=== PATIENT | female | born 1945 | race Caucasian/White ===

== ENCOUNTER 2016-11-01 13:10 | Emergency (ER) | payer MEDICARE, OTHER ==
[2016-11-01 13:55] VITALS: BP 137/73
--- NOTE | 2016-11-01 14:59 | UC ---
Skin Complaint HPI - HPI Summary HPI Summary: pt reports pruritic rash on upper chest and extremities that began 2-3 days ago. Pt has been currently treated for cellulitis and abscess on left anterior knee. Recently has taken keflex, bactrim and just completed doxycycline for 10 days on 10/26/16 Rash began on 10/26/16. Pt has taken 50 mg of benadryl with little to no improvement. over the last 24 hours. - History of Current Complaint Chief Complaint: UC Time Seen by Provider: 11/01/16 13:56 Stated Complaint: RASH Hx Obtained From: Patient ?: No Onset/Duration: Sudden Onset, Lasting Days, Still Present Skin Exposure Onset/Duration: Days Ago Timing: Constant Onset Severity: Mild Current Severity: Moderate Pain Intensity: 0 Pain Scale Used: 0-10 Numeric Location: Discrete - upper anterior chest and upper extremities Character: Pruritus, Redness Aggravating: Nothing Alleviating: Nothing Associated Signs & Symptoms: Positive: Rash Related History: Other: - antibiotic use - Allergy/Home Medications Allergies/Adverse Reactions: Allergies Allergy/AdvReac Type Severity Reaction Status Date / Time Fluconazole [From Diflucan] Allergy Unknown Verified 11/01/16 13:46 Reaction Details Review of Systems Constitutional: Negative Skin: Rash Eyes: Negative ENT: Negative Respiratory: Negative Cardiovascular: Negative Gastrointestinal: Negative Genitourinary: Negative Motor: Negative Neurovascular: Negative Musculoskeletal: Myalgia Neurological: Negative Psychological: Negative All Other Systems Reviewed And Are Negative: Yes PMH/Surg Hx/FS Hx/Imm Hx Previously Healthy: Yes - has hx psoriasis Endocrine History Of: Reports: Thyroid Disease - HYPOTHYROID, Hypothyroidism Cardiovascular History Of: Reports: Hypertension Cancer History Of: Denies: Breast Cancer - Surgical History Surgical History: Yes Surgery Procedure, Year, and Place: TUBAL LIGATION, TONSILLECTOMY - Family History Known Family History: Positive: Cardiac Disease, Hypertension Family History: NON CONTRIBUTORY - Social History Lives: With Family Alcohol Use: Occasionally Alcohol Amount: 1 GLASS WINE/DAY Substance Use Type: None Smoking Status (MU): Former Smoker - Immunization History Most Recent Influenza Vaccination: fall 2015 Physical Exam Triage Information Reviewed: Yes Appearance: Well-Appearing Vital Signs: Initial Vital Signs Temp 97.8 F 11/01/16 13:50 Pulse 73 11/01/16 13:50 Resp 16 11/01/16 13:50 BP 137/73 11/01/16 13:50 Pulse Ox 97 11/01/16 13:50 Vital Signs Reviewed: Yes Neck exam: Normal Respiratory Exam: Normal Cardiovascular Exam: Other Cardiovascular: Positive: Murmur:Sys:Grade _?_/ Musculoskeletal Exam: Normal Neurological Exam: Normal Psychological Exam: Normal Skin Exam: Other - 1 cm wide circular, erythematous, blanchable dry skin scattered on upper anterior chest and extremities Course/Dx - Differential Diagnoses - Skin Complaint Differential Diagnoses: Allergic Reaction, Scabies, Grovse-Anastacio Syndrome - Diagnoses Provider Diagnoses: adverse drug reaction Discharge - Discharge Plan Condition: Stable Disposition: HOME Prescriptions: Loratadine [Alavert] 10 mg PO DAILY #10 tab Patient Education Materials: Adverse Drug Reaction (ED) Referrals: Ney Luna MD [Primary Care Provider] -
== END 2016-11-01 14:22 | disposition home or self-care (01) ==
LOC: UCEAST 13:10
DX: L27.0 Generalized skin eruption due to drugs and medicaments taken internally (principal); T50.905A Adverse effect of unspecified drugs, medicaments and biological substances, initial encounter; Y92.9 Unspecified place or not applicable; Z88.1 Allergy status to other antibiotic agents; Z87.891 Personal history of nicotine dependence
CPT/HCPCS: 99212; G0463

== ENCOUNTER 2018-02-04 14:42 | Emergency (ER) | payer MEDICARE ==
[2018-02-04] MEDS ORDERED: Aspirin 81 mg CHEW TAB* 81 MG TAB.CHEW PO ONE (17:28)
[2018-02-04 17:57] LABS: ABS Basophils 0 10^3/ul (0-0.2); ABS Eosinophils 0.1 10^3/ul (0-0.6); ABS Lymphocytes 1.3 10^3/ul (1.0-4.8); ABS Monocytes 0.4 10^3/ul (0-0.8); ABS Neutrophils 3.4 10^3/ul (1.5-7.7); ABS Nucleated RBC 0 10^3/ul; Eosinophil % 1.3 % (0-6); Hematocrit 35 % (35-47); Hemoglobin 11.5 g/dl (12.0-16.0); Lymphocyte % 25.4 % (25-47); Mean Corpuscular HGB Conc 33 g/dl (31-36); Mean Corpuscular Hemoglobin 28 pg (27-31); Mean Corpuscular Volume 87 fL (80-97); Mean Platelet Volume 8.5 um3 (7.4-10.4); Nucleated Red Blood Cells % 0; Platelet Count 235 10^3/ul (150-450); Red Blood Count 4.08 10^6/ul (4.0-5.4); Red Cell Distribution Width 15 % (10.5-15); White Blood Count 5.2 10^3/ul (3.5-10.8)
[2018-02-04 18:02] LABS: INR 0.96 (0.77-1.02)
--- NOTE | 2018-02-04 18:09 | ED ---
HPI Chest Pain - HPI Summary HPI Summary: Patient here with abrupt onset of bilateral neck and upper chest pain radiating into her head at 4 AM yesterday morning that lasted until about 14:00 in the afternoon. She denies associated symptoms of fever, chills, sweats, nausea, arm pain, shortness of breath, vomiting, nausea. She said she rested most of the day however decided to try some ibuprofen around noon and this did alleviate her symptoms. She has hypertension and high cholesterol for which she takes medication. She also denies sleep apnea but reports her daughter told her she snores. No history of [place] or clotting disorders. No recent trauma or injury to the area. She does have a h/o GERD - takes daily PPI - reports this does not feel like GERD - no ab pain, no change in foods, stress, etc. Had an episode pf pain like this in the past and PCP told her it was anxiety - she denies having a bad dream or sleeping in an odd position so doesn't know why this pain would wake her from sleep? Feels fine now but came in to get checked out. Has had a stress test in the past - "okay". No previous ECG or cardiac testing on file here. - History of Current Complaint Hx Obtained From: Patient Pain Intensity: 0 <Jyoti Benson - Last Filed: 02/04/18 18:15> <Aaron Godinez - Last Filed: 02/04/18 21:50> - History of Current Complaint Chief Complaint: EDThroatPain Time Seen by Provider: 02/04/18 16:11 - Allergy/Home Medications Allergies/Adverse Reactions: Allergies Allergy/AdvReac Type Severity Reaction Status Date / Time fluconazole [From Diflucan] Allergy Leg Cramps Verified 02/04/18 14:52 Home Medications: Home Medications Acyclovir* [Zovirax 400 MG TAB*] 400 mg PO BID 02/04/18 [History Confirmed 02/04] Adalimumab [Humira] 20 mg SC .EVERY TWO WEEKS 02/04/18 [History Confirmed ] Calcipotriene 1 applic TOPICAL BID PRN 02/04/18 [History Confirmed 02/04/18] FLUoxetine CAP* [PROzac CAP*] 40 mg PO DAILY 02/04/18 [History Confirmed ] Gabapentin CAP(*) [Neurontin 300 CAP(*)] 300 mg PO TID 02/04/18 [History Confirmed 02/04/18] Hydrochlorothiazide TAB* [Hydrodiuril TAB*] 25 mg PO DAILY 02/04/18 [History Confirmed 02/04/18] Leflunomide 20 mg PO DAILY 02/04/18 [History Confirmed 02/04/18] Levothyroxine TAB* [Synthroid TAB*] 175 mcg PO DAILY 02/04/18 [History Confirmed 02/04/18] Losartan TAB* [Cozaar TAB*] 50 mg PO DAILY 02/04/18 [History Confirmed 02/04/18] Nystatin CREAM* 1 applic TOPICAL BID PRN 02/04/18 [History Confirmed 02/04/18] Pantoprazole TAB (NF) [Protonix TAB (NF)] 40 mg PO DAILY 02/04/18 [History Confirmed 02/04/18] Piroxicam CAP* [Feldene CAP*] 20 mg PO DAILY WITH MEAL 02/04/18 [History Confirmed 02/04/18] Pravastatin (NF) [Pravachol (NF)] 80 mg PO DAILY 02/04/18 [History Confirmed ] PMH/Surg Hx/FS Hx/Imm Hx Previously Healthy: Yes Endocrine/Hematology History: Reports: Hx Thyroid Disease - HYPOTHYROID Cardiovascular History: Reports: Hx Hypercholesterolemia, Hx Hypertension, Other Cardiovascular Problems/Disorders - murmur; no known carotid stenosis Denies: Hx Aneurysm, Hx Angina, Hx Myocardial Infarction, Hx Rheumatic Fever Respiratory History: Denies: Hx Asthma, Hx Chronic Obstructive Pulmonary Disease (COPD), Hx Pulmonary Embolism, Hx Sleep Apnea - no dx'd but admits to snoring GI History: Reports: Hx Gastroesophageal Reflux Disease Denies: Hx Cirrhosis, Hx Crohn's Disease, Hx Diverticulosis, Hx Gall Bladder Disease, Hx Gastrointestinal Bleed, Hx Hiatal Hernia, Hx Irritable Bowel, Hx Obstructive Bowel, Hx Ulcer Musculoskeletal History: Reports: Hx Rheumatoid Arthritis Denies: Hx Osteoporosis Neurological History: Denies: Hx CVA, Hx Migraine - Cancer History Hx Chemotherapy: No Hx Radiation Therapy: No - Surgical History Surgery Procedure, Year, and Place: TUBAL LIGATION, TONSILLECTOMY Infectious Disease History: Yes Infectious Disease History: Reports: 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 Denies: Traveled Outside the [place] in Last 30 Days - Family History Known Family History: Positive: Cardiac Disease, Hypertension - Social History Alcohol Use: Occasionally Alcohol Amount: 1 GLASS WINE/DAY Hx Substance Use: No Substance Use Type: Reports: None Hx Tobacco Use: Yes - not currently Smoking Status (MU): Former Smoker <Jyoti Benson - Last Filed: 02/04/18 18:15> Physical Exam Triage Information Reviewed: Yes Vital Signs On Initial Exam: Initial Vitals Temp Pulse Resp BP Pulse Ox 96.9 F 82 18 123/61 94 02/04/18 14:46 02/04/18 14:46 02/04/18 14:46 02/04/18 14:46 02/04/18 14:46 Vital Signs Reviewed: Yes Appearance: Positive: Well-Appearing, No Pain Distress, Obese Skin: Positive: Warm, Skin Color Reflects Adequate Perfusion, Dry Head/Face: Positive: Normal Head/Face Inspection Eyes: Positive: Normal, EOMI, Conjunctiva Clear ENT: Positive: Normal ENT inspection, Hearing grossly normal, Pharynx normal, TMs normal, Uvula midline. Negative: Nasal drainage, Tonsillar swelling, Tonsillar exudate, Trismus, Muffled voice, Sinus tenderness Neck: Positive: Supple, Nontender, No Lymphadenopathy - no gross thyromegaly or palpable nodules Respiratory/Lung Sounds: Positive: Clear to Auscultation, Breath Sounds Present. Negative: Rales, Rhonchi, Subcutaneous Emphysema, Stridor, Tracheal Deviation, Wheezes, Unable to speak in full sentences, Fatigue Cardiovascular: Positive: RRR, Pulses are Symmetrical in both Upper and Lower Extremities, Murmur, Other - no carotid bruit appreciated upon auscultation, S1 , S2. Negative: Leg Edema Left, Leg Edema Right Abdomen Description: Positive: Nontender, No Organomegaly, Soft Bowel Sounds: Positive: Present Musculoskeletal: Positive: Normal, Strength/ROM Intact. Negative: Pain @ - areas of pain yesterday are NTTP today Neurological: Positive: Normal, Sensory/Motor Intact, Alert, Oriented to Person Place, Time, CN Intact II-III Psychiatric: Positive: Normal <Marcelino,Jyoit - Last Filed: 02/04/18 18:15> Vital Signs On Initial Exam: Initial Vitals Temp Pulse Resp BP Pulse Ox 96.9 F 82 18 123/61 94 02/04/18 14:46 02/04/18 14:46 02/04/18 14:46 02/04/18 14:46 02/04/18 14:46 <Aaron Godinez - Last Filed: 02/04/18 21:50> Diagnostics - Vital Signs Vital Signs Temp Pulse Resp BP Pulse Ox 02/04/18 14:46 96.9 F 82 18 123/61 94 - Laboratory Lab Results: Lab Results 02/04/18 02/04/18 Range/Units 15:49 17:37 WBC 5.2 (3.5-10.8) 10^3/ul RBC 4.08 (4.0-5.4) 10^6/ul Hgb 11.5 L (12.0-16.0) g/dl Hct 35 (35-47) % MCV 87 (80-97) fL MCH 28 (27-31) pg MCHC 33 (31-36) g/dl RDW 15 (10.5-15) % Plt Count 235 (150-450) 10^3/ul MPV 8.5 (7.4-10.4) um3 Neut % (Auto) 65.1 (38-83) % Lymph % (Auto) 25.4 (25-47) % [place] % (Auto) 8.0 H (0-7) % Eos % (Auto) 1.3 (0-6) % Baso % (Auto) 0.2 (0-2) % Absolute Neuts (auto) 3.4 (1.5-7.7) 10^3/ul Absolute Lymphs (auto) 1.3 (1.0-4.8) 10^3/ul Absolute Monos (auto) 0.4 (0-0.8) 10^3/ul Absolute Eos (auto) 0.1 (0-0.6) 10^3/ul Absolute Basos (auto) 0 (0-0.2) 10^3/ul Absolute Nucleated RBC 0 10^3/ul Nucleated RBC % 0 Group A Strep Rapid Negative (Negative) Result Diagrams: 02/04/18 17:37 02/04/18 17:37 Lab Statement: Any lab studies that have been ordered have been reviewed, and results considered in the medical decision making process. <Jyoti Benson - Last Filed: 02/04/18 18:15> - Vital Signs Vital Signs Temp Pulse Resp BP Pulse Ox 02/04/18 14:46 96.9 F 82 18 123/61 94 - Laboratory Lab Results: Lab Results 02/04/18 02/04/18 02/04/18 Range/Units 15:49 17:37 17:37 WBC 5.2 (3.5-10.8) 10^3/ul RBC 4.08 (4.0-5.4) 10^6/ul Hgb 11.5 L (12.0-16.0) g/dl Hct 35 (35-47) % MCV 87 (80-97) fL MCH 28 (27-31) pg MCHC 33 (31-36) g/dl RDW 15 (10.5-15) % Plt Count 235 (150-450) 10^3/ul MPV 8.5 (7.4-10.4) um3 Neut % (Auto) 65.1 (38-83) % Lymph % (Auto) 25.4 (25-47) % [place] % (Auto) 8.0 H (0-7) % Eos % (Auto) 1.3 (0-6) % Baso % (Auto) 0.2 (0-2) % Absolute Neuts (auto) 3.4 (1.5-7.7) 10^3/ul Absolute Lymphs (auto) 1.3 (1.0-4.8) 10^3/ul Absolute Monos (auto) 0.4 (0-0.8) 10^3/ul Absolute Eos (auto) 0.1 (0-0.6) 10^3/ul Absolute Basos (auto) 0 (0-0.2) 10^3/ul Absolute Nucleated RBC 0 10^3/ul Nucleated RBC % 0 INR (Anticoag Therapy) 0.96 (0.77-1.02) APTT 31.4 (26.0-36.3) seconds D-Dimer, Quantitative > 1050 H (Less Than 230) ng/mL Sodium (139-145) mmol/L Potassium (3.5-5.0) mmol/L Chloride (101-111) mmol/L Carbon Dioxide (22-32) mmol/L Anion Gap (2-11) mmol/L BUN (6-24) mg/dL Creatinine (0.51-0.95) mg/dL Est GFR ( Amer) (>60) Est GFR (Non-Af Amer) (>60) BUN/Creatinine Ratio (8-20) Glucose (70-100) mg/dL Lactic Acid (0.5-2.0) mmol/L Calcium (8.6-10.3) mg/dL Magnesium (1.9-2.7) mg/dL Total Bilirubin (0.2-1.0) mg/dL AST (13-39) U/L ALT (7-52) U/L Alkaline Phosphatase (34-104) U/L Troponin I (<0.04) ng/mL Total Protein (6.4-8.9) g/dL Albumin (3.2-5.2) g/dL Globulin (2-4) g/dL Albumin/Globulin Ratio (1-3) TSH (0.34-5.60) mcIU/mL Group A Strep Rapid Negative (Negative) 02/04/18 02/04/18 Range/Units 17:37 17:37 WBC (3.5-10.8) 10^3/ul RBC (4.0-5.4) 10^6/ul Hgb (12.0-16.0) g/dl Hct (35-47) % MCV (80-97) fL MCH (27-31) pg MCHC (31-36) g/dl RDW (10.5-15) % Plt Count (150-450) 10^3/ul MPV (7.4-10.4) um3 Neut % (Auto) (38-83) % Lymph % (Auto) (25-47) % [place] % (Auto) (0-7) % Eos % (Auto) (0-6) % Baso % (Auto) (0-2) % Absolute Neuts (auto) (1.5-7.7) 10^3/ul Absolute Lymphs (auto) (1.0-4.8) 10^3/ul Absolute Monos (auto) (0-0.8) 10^3/ul Absolute Eos (auto) (0-0.6) 10^3/ul Absolute Basos (auto) (0-0.2) 10^3/ul Absolute Nucleated RBC 10^3/ul Nucleated RBC % INR (Anticoag Therapy) (0.77-1.02) APTT (26.0-36.3) seconds D-Dimer, Quantitative (Less Than 230) ng/mL Sodium 136 L (139-145) mmol/L Potassium 4.0 (3.5-5.0) mmol/L Chloride 100 L (101-111) mmol/L Carbon Dioxide 26 (22-32) mmol/L Anion Gap 10 (2-11) mmol/L BUN 30 H (6-24) mg/dL Creatinine 1.56 H (0.51-0.95) mg/dL Est GFR ( Amer) 42.1 (>60) Est GFR (Non-Af Amer) 32.7 (>60) BUN/Creatinine Ratio 19.2 (8-20) Glucose 90 (70-100) mg/dL Lactic Acid 1.6 (0.5-2.0) mmol/L Calcium 9.2 (8.6-10.3) mg/dL Magnesium 2.0 (1.9-2.7) mg/dL Total Bilirubin 0.40 (0.2-1.0) mg/dL AST 24 (13-39) U/L ALT 17 (7-52) U/L Alkaline Phosphatase 73 (34-104) U/L Troponin I 0.01 (<0.04) ng/mL Total Protein 7.4 (6.4-8.9) g/dL Albumin 3.7 (3.2-5.2) g/dL Globulin 3.7 (2-4) g/dL Albumin/Globulin Ratio 1.0 (1-3) TSH 0.10 L (0.34-5.60) mcIU/mL Group A Strep Rapid (Negative) Result Diagrams: 02/04/18 17:37 02/04/18 17:37 Lab Statement: Any lab studies that have been ordered have been reviewed, and results considered in the medical decision making process. - Radiology cxr Xray Interpretation: No Acute Changes Radiology Interpretation Completed By: Radiologist - CT cta chest CT Interpretation: No Acute Changes CT Interpretation Completed By: Radiologist cta neck CT Interpretation: No Acute Changes CT Interpretation Completed By: Radiologist - EKG 1 Cardiac Rate: NL EKG Rhythm: Sinus Rhythm ST Segment: Normal Ectopy: None <Aaron Godinez - Last Filed: 02/04/18 21:50> Chest Pain Course/Dx - Course Course Of Treatment: Although pt's pain has resolved, she has many risk factors for CV dz including HTN, hyperlipidemia, hypothyroidism, possible sleep apnea and h/o smoking. CARDIOVASCULAR w/u initaited and discussed w/ Aaron VEGAS who will resume care of pt in stable condition. <Jyoti Benson - Last Filed: 02/04/18 18:15> - Course Course Of Treatment: Elevated d-dimer. CTA chest negative. CR elevated, near patient baseline. Hyperthyroid. <Aaron Godinez - Last Filed: 02/04/18 21:50> - Diagnoses Provider Diagnoses: Chest pain, Neck pain, Hyperthyroidism, Chronic kidney disease (CKD) Discharge - Sign-Out/Discharge Documenting (check all that apply): Sign-Out Patient Signing out patient TO: Aaron Godinez - Billing Disposition and Condition Condition: STABLE <Jyoti Benson - Last Filed: 02/04/18 18:15> - Billing Disposition and Condition Condition: STABLE <Aaron Godinez - Last Filed: 02/04/18 21:50> - Discharge Plan Condition: Stable Referrals: Ney Luna MD [Primary Care Provider] - Additional Instructions: Follow-up with primary care for further evaluation of hyperthyroidism. Return to the ED for any new or worsening symptoms
[2018-02-04 18:11] LABS: EGFR Non-African American 32.7 (>60)
--- NOTE | 2018-02-04 18:37 | RAD ---
Indication: Jaw and neck pain. Single frontal portable view of the chest performed at 1755 hours demonstrates no mediastinal shift. Heart is of normal size and configuration. Lung steward are clear. IMPRESSION: No active cardiopulmonary disease is noted.
[2018-02-04] MEDS ORDERED: Iodixanol* (CONTRAST) 320 MG/ML 100 ML SDV IV ONE (20:15)
--- NOTE | 2018-02-04 21:27 | RAD ---
Indication: Elevated d-dimer, chest pain. Contrast: Administered 92.3 ml of Contrast -- mg/ml CTA of the chest, was performed after IV contrast administration. Coronal and sagittal reconstructed images were obtained. Pulmonary arterial tree demonstrates no definite filling defect to suggest pulmonary embolus although the pulmonary arteries are suboptimally visualized. The aorta demonstrates no evidence of aortic dissection. The heart is of normal size without evidence of pericardial effusion. There is no mediastinal or hilar adenopathy. The trachea and major bronchi appear patent. Lung steward demonstrate no pleural fluid, nodules or masses. Some atelectasis is noted right medial lung base. No pleural fluid is identified. IMPRESSION: No definite pulmonary embolus is noted. No evidence of aortic dissection is noted.
--- NOTE | 2018-02-04 21:35 | RAD ---
Indication: Neck pain. Contrast: Administered 60.2 ml of VISAPAQUE 320 mg/ml CTA of the neck was performed after IV contrast administration. Coronal and sagittal reconstructed images were obtained. The origin of the great vessels are grossly unremarkable. The common carotid arteries bilaterally demonstrates no significant stenosis. No intimal wall thickening is noted. There may be minimal plaque is noted at the origin of the internal carotid arteries bilaterally. No change in caliber is noted in the internal carotid arteries to suggest carotid artery dissection. The intracranial portions are grossly unremarkable. The vertebral arteries demonstrate dominant right vertebral artery and a small left vertebral artery. The vertebral arteries are suboptimally visualized. IMPRESSION: No evidence of carotid artery dissection noted. Vertebral arteries are limited in evaluation.
[2018-02-04 22:09] VITALS: BP 131/84
== END 2018-02-04 22:08 | disposition home or self-care (01) ==
LOC: ED 14:42
DX: R07.89 Other chest pain (principal); Z87.891 Personal history of nicotine dependence; N28.9 Disorder of kidney and ureter, unspecified; E05.90 Thyrotoxicosis, unspecified without thyrotoxic crisis or storm; M54.2 Cervicalgia
CPT/HCPCS: 36415; 70498; 71045; 71275; 80053; 83605; 83735; 84443; 84484; 85025; 85379; 85610; 85730; 87651; 93005; 99282; A9270-GY; Q9967

== ENCOUNTER 2018-03-08 12:44 | Emergency (ER) | payer MEDICARE ==
[2018-03-08] MEDS ORDERED: Morphine VIAL* 4 MG/ML VIAL (1 ml vial) IV ONE (14:39)
[2018-03-08] MEDS ORDERED: Dexamethasone IV* 4 MG/ML 1 ML (4 MG) IV SLOW PU ONE (14:39)
[2018-03-08] MEDS ORDERED: Orphenadrine Citrate IV* 30 MG/ML 2 ML VIAL IV ONE (14:39)
--- NOTE | 2018-03-08 15:11 | RAD ---
Indication: Back pain. 3 views of the lumbar spine demonstrate vertebral bodies to be normal in height. There is grade 1 spondylolisthesis of L4 on 5. Degenerative disc disease at L1-L2 and L2-L3 is noted. No fracture is identified. Spinal canal appears to be intact. IMPRESSION: Degenerative disc disease at L1-L2 and L2-L3 as well as grade 1 spondylolisthesis of L4 on 5.
[2018-03-08 16:16] VITALS: BP 152/80
--- NOTE | 2018-03-10 21:24 | ED ---
Kiel Patel Angela, scribed for Elias Rooney MD on 03/08/18 at 1505 . Back Pain - HPI Summary HPI Summary: This pt is a 72 y/o female presenting to [facility] c/o right sided back pain, worsening. Pt reports she has hx of sciatica but this pain is worse. She states her pain radiates from her back to her right buttocks and down her right thigh when standing up. Her pain is aggravated with movement and alleviated with rest. Denies abd pain, weakness, numbness, or tingling in LE, urinary or bowel dysfunction. Pt has been taking ibuprofen for the pain with no relief. - History of Current Complaint Chief Complaint: EDBackInjuryPain Stated Complaint: BACK PAIN Time Seen by Provider: 03/08/18 14:27 Hx Obtained From: Patient Onset/Duration: Lasting Days, Still Present Onset/Duration: Started Days Ago, Atraumatic, Still Present Timing: Lasting Days Back Pain Location: Is Discrete @ - right sided back, Radiates To - right buttocks and right thigh Severity Currently: Severe Pain Intensity: 10 Pain Scale Used: 0-10 Numeric Aggravating Symptom(s): Movement Alleviating Symptom(s): Rest Associated Signs And Symptoms: Negative: Fever, Weakness, Numbness, Tingling, Abdominal Pain, Bladder Incontinence, Bowel Incontinence - Allergies/Home Medications Allergies/Adverse Reactions: Allergies Allergy/AdvReac Type Severity Reaction Status Date / Time fluconazole [From Diflucan] Allergy Leg Cramps Verified 03/08/18 12:51 Home Medications: Home Medications Adalimumab (NF) [Humira Pen (NF)] 20 mg SUBCUT Q14D 03/08/18 [History Confirmed 03/08/18] Leflunomide (NF) [Arava (Nf)] 20 mg PO DAILY 03/08/18 [History Confirmed ] Triamcinolone 0.5% CREAM(NF) [Triamcinolone 0.5% CREAM*] 1 applic TOPICAL BID PRN 03/08/18 [History Confirmed 03/08/18] PMH/Surg Hx/FS Hx/Imm Hx Endocrine/Hematology History: Reports: Hx Thyroid Disease - HYPOTHYROID Denies: Hx Diabetes Cardiovascular History: Reports: Hx Hypercholesterolemia, Hx Hypertension, Other Cardiovascular Problems/Disorders - murmur; no known carotid stenosis Denies: Hx Aneurysm, Hx Angina, Hx Myocardial Infarction, Hx Rheumatic Fever Respiratory History: Denies: Hx Asthma, Hx Chronic Obstructive Pulmonary Disease (COPD), Hx Pulmonary Embolism, Hx Sleep Apnea - no dx'd but admits to snoring GI History: Reports: Hx Gastroesophageal Reflux Disease Denies: Hx Cirrhosis, Hx Crohn's Disease, Hx Diverticulosis, Hx Gall Bladder Disease, Hx Gastrointestinal Bleed, Hx Hiatal Hernia, Hx Irritable Bowel, Hx Obstructive Bowel, Hx Ulcer Musculoskeletal History: Reports: Hx Rheumatoid Arthritis Denies: Hx Osteoporosis Neurological History: Denies: Hx CVA, Hx Migraine - Cancer History Hx Chemotherapy: No Hx Radiation Therapy: No - Surgical History Surgery Procedure, Year, and Place: TUBAL LIGATION, TONSILLECTOMY Infectious Disease History: No Infectious Disease History: Reports: 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 Denies: Traveled Outside the [place] in Last 30 Days - Family History Known Family History: Positive: Cardiac Disease, Hypertension - Social History Alcohol Use: Occasionally Alcohol Amount: 1 GLASS WINE/DAY Hx Substance Use: No Substance Use Type: Reports: None Hx Tobacco Use: Yes - not currently Smoking Status (MU): Former Smoker Review of Systems Negative: Fever Cardiovascular: Negative Respiratory: Negative Negative: Abdominal Pain Negative: incontinence Musculoskeletal: Other - right sided back pain, right thigh pain Negative: Weakness, Paresthesia, Numbness All Other Systems Reviewed And Are Negative: Yes Physical Exam - Summary Physical Exam Summary: VITAL SIGNS: Reviewed. GENERAL: Patient is an obese female who is lying comfortable in the stretcher. Patient is not in any acute respiratory distress. HEAD AND FACE: No signs of trauma. No ecchymosis, hematomas or skull depressions. No sinus tenderness. EYES: PERRLA, EOMI x 2, No injected conjunctiva, no nystagmus. EARS: Hearing grossly intact. Ear canals and tympanic membranes are within normal limits. MOUTH: Oropharynx within normal limits. NECK: Supple, trachea is midline, no adenopathy, no JVD, no carotid bruit, no c- spine tenderness, neck with full ROM. CHEST: Symmetric, no tenderness at palpation LUNGS: Clear to auscultation bilaterally. No wheezing or crackles. CVS: Regular rate and rhythm, S1 and S2 present, no murmurs or gallops appreciated. ABDOMEN: Soft, non-tender. No signs of distention. No rebound no guarding, and no masses palpated. Bowel sounds are normal. MSK: FROM in all major joints, no edema, no cyanosis or clubbing. Some tenderness in the right paraspinal muscle. Tenderness in the gluteal area. Positive straight leg raise at 90 degrees on the right. NEURO: Alert and oriented x 3. No acute neurological deficits. Speech is normal and follows commands. SKIN: Dry and warm Triage Information Reviewed: Yes Vital Signs On Initial Exam: Initial Vitals Temp Pulse Resp BP Pulse Ox 97 F 67 16 205/106 99 03/08/18 12:48 03/08/18 12:48 03/08/18 12:48 03/08/18 12:48 03/08/18 12:48 Vital Signs Reviewed: Yes Diagnostics - Vital Signs Vital Signs Temp Pulse Resp BP Pulse Ox 03/08/18 14:26 60 184/82 95 03/08/18 12:48 97 F 67 16 205/106 99 - Laboratory Lab Statement: Any lab studies that have been ordered have been reviewed, and results considered in the medical decision making process. - Radiology Lumbar spine XR Xray Interpretation: Positive (See Comments) - IMPRESSION: Degenerative disc disease at L1-L2 and L2-L3 as well as grade 1 spondylolisthesis of L4 on 5. Dr. Rooney has reviewed this radiology report. Radiology Interpretation Completed By: Radiologist Back Pain Course/Dx - Course Assessment/Plan: Pt is a 72 y/o female presenting to [facility] c/o right sided back pain, worsening. Pt reports she has hx of sciatica but this pain is worse. She states her pain radiates from her back to her right buttocks and down her right thigh when standing up. Her pain is aggravated with movement and alleviated with rest. Denies abd pain, weakness, numbness, or tingling in LE, urinary or bowel dysfunction. Pt has been taking ibuprofen for the pain with no relief. Lumbar spine XR impression: Degenerative disc disease at L1-L2 and L2-L3 as well as grade 1 spondylolisthesis of L4 on 5. In the ED course the pt was given Decadron, Toradol and Norflex, and her symptoms improved. The pt is able to ambulate without any difficulty. Pt had an exacerbation of sciatica. She will be discharged home with follow up from her PCP. Pt will be given prescriptions for Fifty Six, Robaxin, and Medrol dosepak. I discussed the XR result with the patient. All questions were answered to patient satisfaction. There were no further complaints or concerns. Pt is hemodynamically stable, alert and oriented x3. - Diagnoses Provider Diagnoses: Sciatica Discharge - Sign-Out/Discharge Documenting (check all that apply): Discharge/Admit/Transfer - Discharge - Discharge Plan Condition: Stable Disposition: HOME Prescriptions: HYDROcodone/ACETAMIN 5-325 MG* [Fifty Six 5-325 TAB*] 1 tab PO Q4H PRN #12 tab MDD 4 PRN Reason: Pain Methocarbamol TAB* [Robaxin 500 MG TAB*] 500 mg PO TID PRN #12 tab PRN Reason: Pain methylPREDNISolone [Medrol Dosepak 4 MG*] 0 mg PO .SEE JOHNATHAN INSTRUCTION #1 johnathan Patient Education Materials: Sciatica (ED) Referrals: Ney Luna MD [Primary Care Provider] - 3 Days Additional Instructions: Please follow up with your primary care provider. RETURN TO THE ED FOR ANY NEW OR WORSENING SYMPTOMS. The documentation as recorded by the Kiel naranjo Angela accurately reflects the service I personally performed and the decisions made by , Elias Rooney MD.
== END 2018-03-08 16:15 | disposition home or self-care (01) ==
LOC: ED 12:44
DX: M51.16 Intervertebral disc disorders with radiculopathy, lumbar region (principal); M43.16 Spondylolisthesis, lumbar region; Z87.891 Personal history of nicotine dependence; Z88.8 Allergy status to other drugs, medicaments and biological substances
CPT/HCPCS: 72100; 96374; 96375; 99283; J1100; J2270; J2360

== ENCOUNTER 2018-09-06 15:00 | Inpatient (IN) | payer MEDICARE ==
--- NOTE | 2018-12-28 17:49 | HP ---
HISTORY AND PHYSICAL: DATE OF ADMISSION/SURGERY: 01/10/19 DATE OF OFFICE VISIT: 12/28/18 SURGEON: Kathya Sheppard MD * (DICTATED BY SHASTA JAQUEZ) PROCEDURE: Left total knee arthroplasty. CHIEF COMPLAINT: Left knee pain. HISTORY OF PRESENT ILLNESS: Ms. Dupree is a 73-year-old female with end-stage osteoarthritis of the left knee. She has failed conservative treatment and elected to proceed with a left total knee arthroplasty. PAST MEDICAL HISTORY: Hypertension, hypothyroidism, GERD, history of MRSA, high cholesterol, psoriatic arthritis, and depression and anxiety. PAST SURGICAL HISTORY: Tonsillectomy, tubal ligation. CURRENT MEDICATIONS: 1. Piroxicam 20 mg a day. 2. Triamcinolone cream. 3. Leflunomide 20 mg daily. 4. Hydrochlorothiazide 25 mg a day. 5. Levothroid 150 mcg a day. 6. Acyclovir 400 mg a day. 7. Pantoprazole 40 mg a day. 8. Gabapentin 300 mg 3 tabs 3 times a day. 9. Multivitamin. 10. Pravastatin sodium 80 mg a day. 11. Losartan potassium 50 mg a day. 12. Fluoxetine 20 mg 2 tabs every day. 13. Iron. 14. Vitamin D3. 15. Humira. 16. Nystatin cream as needed. ALLERGIES: DIFLUCAN, DOXYCYCLINE, AMOXICILLIN. FAMILY HISTORY: Aortic aneurysm, cancer, and coronary artery disease. SOCIAL HISTORY: She is a 73-year-old female. She lives alone. She does not smoke or use drugs. Uses occasional alcohol. REVIEW OF SYSTEMS: A complete 14-point review of systems was reviewed with the patient. It was positive for history of MRSA infection, GERD, hypothyroidism, and occasional lightheadedness. She denies history of DVT, PE, hepatitis, HIV, or anesthesia problems. PHYSICAL EXAMINATION GENERAL: She is well developed, well nourished, in no acute distress. VITAL SIGNS: She stands 6 feet 2 inches tall, weighs 246 pounds. Her blood pressure is 143/85 and heart rate is 74. HEENT: Normocephalic, atraumatic. NECK: Supple. No palpable lymph nodes. PULMONARY: The lungs are clear to auscultation bilaterally. CARDIO: Regular rate and rhythm. Strong S1, S2. ABDOMEN: Soft, nontender, nondistended. NEUROLOGICAL: She is alert and oriented x3. MUSCULOSKELETAL: Left lower extremity: The skin is intact. There are no open wounds or abrasions. There is moderate joint effusion. She has some tenderness over the medial and lateral joint line. Range of motion is 5 to 120 degrees of flexion with patellofemoral crepitus. She has 2+ dorsalis pedis pulse, intact sensation, and her lower extremity muscle group strengths are intact at 5/5. ASSESSMENT AND PLAN: Ms. Dupree is a 73-year-old female with end-stage osteoarthritis of the left knee. She has failed conservative treatment and elected to proceed with a left total knee arthroplasty. Surgery is scheduled for 01/10/[address] Sheppard discussed the risks and benefits of the surgery at today's visit and all of her questions were answered. She will follow up with Dr. Sheppard 2 weeks after the surgery. SHASTA JAQUEZ [id number]/ALEX #: [id number] SAYDA
[2019-01-09] MEDS ORDERED: Buffered Lidocaine 1% SYRIN* 1 ML/SYRINGE INTRADERM ONE (12:31)
[2019-01-10] MEDS ORDERED: Tranexamic Acid 1,000 MG in NS 0.9% 50 ML* (outpatient use) IV SCH ×2
[2019-01-10] MEDS ORDERED: Lactated Ringers 1000 ML Bag* 1,000 ML IV SCH (06:00)
--- OUTSIDE RECORDS SUMMARY | 2019-01-10 13:07 | XMS REPORT | Continuity of Care Document ---
:1945 External Reference #:[id number] Author Name Mishel Gandhi Care Team Providers Name Role Phone Ney Luna MD Primary Care Physician Unavailable Payers Date Identification Numbers Payment Provider Subscriber Effective: Policy Number: [id number] [facility] Medicare [facility] Lucas Dupree 2016 Group Number: [id number] [address] [address] PayID: [id number] [place] [address] Expires: 2018 Policy Number: [id number] Medicare Lucas Dupree PayID: [id number] [address] [place] [address] Expires: 2018 Policy Number: [id number] Medicare Lucas Dupree PayID: [id number] [address] [place] [address] Effective: 2011 Policy Number: [id number] Medicare Lucas Dupree Expires: 2017 PayID: [id number] [address] [place] [address] Effective: 2011 Policy Number: [id number] Medicare Lucas Dupree Expires: 2016 PayID: [id number] [address] [place] [address] Expires: 2016 Policy Number: [id number] [facility] Lucas Dupree Group Number: [id number] [address] [address] PayID: [id number] RIZWANA [place] [address] Expires: 2016 Policy Number: [id number] Medicare Lucas Dupree PayID: [id number] [address] [place] [address] Advance Directives Description No Information Available Problems Date Description Provider Status Onset: 09/05/2012 Psoriasis with arthropathy Obdulio Mclain M.D. Active Onset: 09/05/2012 Psoriasis Obdulio Mclain M.D. Active Onset: 09/05/2012 Medications [facility] (Current) Use Obdulio Mclain M.D. Active Encounter Onset: 08/22/2013 Degenerative joint disease of hand Obdulio Mclain M.D. Active Onset: 08/22/2013 Localized, primary osteoarthritis of the Obdulio Mclain M.D. Active lower leg Onset: 11/14/2013 Acute bronchitis Obdulio Mclain M.D. Active Onset: 07/11/2018 Morbid obesity Kathya Sheppard M.D. Active Onset: 07/11/2018 Localized, primary osteoarthritis Kathya Sheppard M.D. Active Onset: 09/28/2014 Taking medication KEO Ordaz Active Family History Date Family Member(s) Observation Comments General Heart Disease General Hypertension General Cancer Social History Type Date Description Comments Sex Unknown Lives With Spouse Occupation Retired Tobacco Use Start: Unknown End: Former Cigarette Smoker Unknown Smoking Status Reviewed: 12/28/18 Former Cigarette Smoker ETOH Use Occasionally consumes alcohol Tobacco Use Start: Unknown End: Patient is a former smoker Unknown Recreational Drug Use Denies Drug Use Exercise Type/Frequency Does not exercise Allergies, Adverse Reactions, Alerts Date Description Reaction Status Severity Comments 09/28/2014 Diflucan Active states she "couldn't walk after taking it" 11/09/2016 Doxycycline Urticaria Active 06/23/2018 Amoxicillin Urticaria, swelling, Active rash at hands 01/07/2011 NKDA Inactive Medications Medication Date Status Form Strength Qnty SIG Indications Ordering Provider Piroxicam Active Capsules 20mg 90caps 1 by Zsofia 018 mouth Brian, daily as RESIDENT [facility] A[facility] needed Triamcinolone Active Cream 0.1% 80gm use on L40.9 Zsofia Acetonide 018 lesion Brian, twice [facility] daily for 2 weeks on and 1 week off as needed Leflunomide Active Tablets 20mg 90tabs Take 1 Z79.899 Zsofia 014 Tablet Brian, By Mouth [facility] C[facility] AID Every Day L40.59 L40.9 Hydrochlorothiazide 01/07/2011 Active Tablets 25mg 90tabs 1 po qd Obdulio Mclain M.D. Levothroid Active Tablets 150mcg 90tabs 1 po qd Unknown Acyclovir Active Tablets 400mg 60tabs 1 po qd Unknown Pantoprazole Active 40mgM 30units 1 po qd Unknown Gabapentin Active Capsules 300mg 90caps 3 by mouth Unknown up to three times a day Multi For Her 50+ Active Capsules 1 by mouth Unknown every day Pravastatin Sodium Active Tablets 80mg 1 by mouth Unknown every day Losartan Potassium Active Tablets 50mg 1 by mouth Unknown every day Fluoxetine HCL Active Capsules 20mg 2 by mouth Unknown every day Iron Supplement Active daily Unknown Vitamin D3 Active Tablets 1 by mouth Unknown every day Humira Active PSKT 20mg/0. 3units inject the Z7 Zsofia 4ML contents of 9. Brian, 1 syringe 89 RESIDENT C[facility] AID under the 9 skin every two weeks L40.59 L40.9 Nystatin-Triamcinolone Active Unknown Diclofenac Sodium 06/23/2018 - Hx Gel 1% 200 Apply 2 L40 Zsofia 12/27/2018 uni Grams Twice .59 Brian, ts Daily To RESIDENT C[facility] A[facility] Affected Area as Needed Voltaren 11/01/2017 - Hx Gel 1% 200 apply 2 L40 Zsofia 06/23/2018 uni grams twice .50 Brian, ts daily to RESIDENT [facility] A[facility] affected area as needed Enbrel 04/07/2017 - Hx Soln 50m 3un Inject 50 L40 Zsofia 06/03/2017 Prefill g/m its MG Under .50 Brian, Syringe l The Skin RESIDENT CARE AID Once A Week Z79.899 Otezla 11/16/2016 - Hx TBPK 10&20&30mg 1pack take as L40.50 Zsofia 01/10/2017 instructed KEO Torres L40.9 Otezla 11/16/2016 - Hx Tablets 30mg 180tabs take one L40.9 Zsofia Brian, 06/02/2017 tablet by RESIDENT C[facility] AID mouth two times a day L40.50 Z79.899 Doxycycline 10/19/2016 - Hx Capsules 100mg 14caps 1 by mouth Moriah Chun Hyclate Unknown twice a day MD Isidro Bactrim DS 10/15/2016 - Hx Tablets 800-160m 20tabs 1 Tab PO Leeanne B. 10/19/2016 g Q12H PITER Starr Diclofenac 08/07/2016 - Hx Gel 1% 100gm apply 1 L40 Zsofia Sodium Unknown grams on .50 Brian, RESIDENT C[facility] AID wrists as needed for pain. Tramadol HCL 10/05/2014 - Hx Tablets 50mg 30tabs take 1 696 Zsofia 03/19/2015 tablet hs as .0 Brian, RESIDENT C[facility] AID needed. Levofloxacin 09/28/2014 - Hx Tablets 750mg 10tabs 1 tab po q 682 Zsofia 12/28/2014 day for 10 .6 Brian, RESIDENT C[facility] AID days Calcipotriene 02/06/2014 - Hx Ointment 0.005% 120gm use it L40 Zsofia 06/02/2017 sparingly on .9 Brian, RESIDENT [facility] AID affected area once daily for 2 weeks on and 1 weeks off as needed Voltaren 02/06/2014 - Hx Gel 1% 1tubes apply to L40 Zsofia 08/07/2016 affected .50 Brian, RESIDENT C[facility] AID area twice a day, as needed Enbrel 02/06/2014 - Hx Soln 50mg/ml 3units Inject 50 MG L40 Ney 01/11/2017 Prefill Under The .50 Hailee Brown Syringe Skin Once A Week Z79.899 Prednisone 11/14/2013 - Hx Tablets 5mg 70tabs 4 qd x 1 696.0 Obdulio 02/06/2014 week, 3 qd x Chemo, MSamiraD. 1 week, 2 qd x 1 week, 1 qd x 1 week Amoxicillin/Pot 11/14/2013 - Hx Tablets 500-12 20tabs 1 po bid for 466.0 Obdulio assium 02/06/2014 5mg 10 days Endo, M.D. Clavulanate Stelara 11/14/2013 - Hx Solution 45mg/0 2units 90 mg week 0 696.0 Obdulio 02/06/2014 .5ML and 4 and q Chemo, M.D. 12 weeks Dovonex 08/22/2013 - Hx Cream 0.005% 60units topical 696.1 Troy 04/03/2014 daily for 3 Endo, M.D. weeks Lidoderm 12/06/2012 - Hx Patches 5% 30units Apply One 696.0 Obdulio 04/03/2014 Patch To Endo, M.D. Affected Area Daily, Leave On For No More Than Tenhours as Directed Fluocinonide 02/29/2012 - Hx Cream 0.05% 60units Apply To [place] 05/05/2018 Affected Endo, M.D. Area Daily Augmentin 08/31/2011 - Hx Tablets 875-12 20tabs 1 tab by [place] 02/29/2012 5mg mouth twice Endo, M.D. a day Fluocinonide 08/21/2011 - Hx Cream 0.05% 60units Apply To [place] 02/29/2012 Affected Endo, M.D. Area Daily Voltaren 05/28/2011 - Hx Gel 1% 15tubes apply to [place] 08/29/2014 affected Endo, M.D. area qid Leflunomide 2011 - Hx Tablets 10mg 30tabs take 2 [place] 04/03/2014 tablets Endo, M.D. daily Piroxicam 2011 - Hx Capsules 20mg 90caps Take 1 Z79.899 [place] 06/22/2016 Capsule Endo, M.D. Daily With Food Arava 01/07/2011 - Hx Tablets 20mg 90tabs 1 po qd [place] 2011 Endo, M.D. Hydrocodone/John 01/07/2011 - Hx Tablets 10-325 100tabs 1-2 po q 6 [place] taminophen 05/31/2012 mg hr prn Endo, M.D. Flector 01/07/2011 - Hx Patches 1.3% 60units topical [place] 09/05/2012 twice a day Endo, M.D. Enbrel 01/07/2011 - Hx Solution 50mg/m 12units inject 1 [place] 05/26/2014 l injection Endo, M.D. under the skin once weekly Prozac - Hx Capsules 20mg 30caps 1 po qd Unknown 06/22/2016 Prilosec - Hx Capsules DR 20mg 30caps 1 po qd Unknown 06/22/2016 Pravachol - Hx Tablets 80mg 30tabs one pm Unknown 02/05/2016 Piroxicam - Hx Capsules 10mg 30caps po daily Unknown 2011 with food Clobetasol - Hx Cream 0.05% 45gm apply thin L40.9 Zsofia Propionate 07/02/2017 film twice Brian, daily for RESIDENT CARE AID not more than 2 weeks then two weeks off and may start again if needed On Hold Fluoxetine HCL - Hx Capsules 20mg 1 by mouth Unknown 12/10/2014 every day Meclizine HCL - Hx Tablets 12.5mg three times Unknown 06/22/2016 a day until symptoms are resolved Tylenol - Hx Tablets ER 650mg 2 by mouth Unknown Arthritis Pain 06/23/2018 twice daily Keflex - Hx Capsules 500mg one tablet Unknown Unknown three times a day Naproxen - Hx Tablets 500mg 1 tablet Unknown 06/23/2018 with food by mouth twice a day Acetonidei - Hx Unknown Cream 07/10/2018 Medications Administered in Office Medication Date Status Form Strength Qnty SIG Indications Ordering Provider Depomedrol 40MG 07/11/ Administered Injection Kathya 2017 Hailee Sheppard Synvisc Or 03/05/ Administered Injection Ney Synvisc-One 2015 Nirmal Brown 1 MG Hailee Triamcinolone 01/01/ Administered Injection Ney (Kenalog) 2015 Hailee Brown Triamcinolone 01/01/ Administered Injection Ney (Kenalog) 2015 Hailee Brown Triamcinolone 01/01/ Administered Injection Ney (Kenalog) 2015 Hailee Brown Immunizations CPT Code Status Date Vaccine Lot # [id number] Given 06/23/2018 Influenza Virus Vaccine, Quadrivalent, Split, [id number] Preservative Free [id number] Given 07/05/2017 Influenza Virus Vaccine, Quadrivalent, Split, [id number] Preservative Free 98036 Given 07/13/2016 Pneumonia Vaccine [id number] Ordered 12/01/2013 Pneumococcal Conjugate Vaccine 13 Valent For Intramuscular Use Vital Signs Date Vital Result Comment 12/28/2018 10:20am Height 62 inches 5'2" Weight 246.00 lb BP Systolic 143 mmHg BP Diastolic 85 mmHg Respiratory Rate 18 /min Pain Level 3 BMI (Body Mass Index) 45.0 kg/m2 09/26/2018 1:03pm Height 62 inches 5'2" per patient Heart Rate 72 /min BP Systolic Sitting 112 mmHg BP Diastolic Sitting 73 mmHg Respiratory Rate 16 /min Pain Level 7 07/11/2018 1:47pm Height 62 inches 5'2" per patient Weight 245.00 lb per patient, declined to get on scale Heart Rate 72 /min BP Systolic 150 mmHg BP Diastolic 88 mmHg BMI (Body Mass Index) 44.8 kg/m2 06/23/2018 11:40am Height 61 inches 5'1" Heart Rate 78 /min BP Systolic Sitting 110 mmHg BP Diastolic Sitting 60 mmHg O2 % BldC Oximetry 92 % 05/06/2018 11:51am Height 61 inches 5'1" Weight 243.00 lb Heart Rate 76 /min BP Systolic Sitting 120 mmHg Lue LG Cuff BP Diastolic Sitting 62 mmHg Lue LG Cuff BP Systolic Standing 115 mmHg BP Diastolic Standing 70 mmHg Respiratory Rate 18 /min BMI (Body Mass Index) 45.9 kg/m2 Ejection Fraction 60-65% 04/08/2018 ef 04/06/2018 3:28pm Height 61 inches 5'1" Weight 245.00 lb Heart Rate 78 /min BP Systolic 126 mmHg rue lg cuff BP Diastolic 70 mmHg rue lg cuff BP Systolic Sitting 120 mmHg lue lg cuff BP Diastolic Sitting 68 mmHg lue lg cuff BP Systolic Standing 138 mmHg lue lg cuff BP Diastolic Standing 90 mmHg lue lg cuff Respiratory Rate 16 /min BMI (Body Mass Index) 46.3 kg/m2 03/21/2018 3:37pm Height 61 inches 5'1" Weight 243.50 lb Heart Rate 69 /min BP Systolic 108 mmHg BP Diastolic 70 mmHg Pain Level 6 O2 % BldC Oximetry 95 % BMI (Body Mass Index) 46.0 kg/m2 12/13/2017 3:54pm Heart Rate 62 /min BP Systolic Sitting 105 mmHg BP Diastolic Sitting 65 mmHg Body Temperature 96.4 F O2 % BldC Oximetry 94 % 09/06/2017 3:02pm Height 61 inches 5'1" Heart Rate 70 /min BP Systolic Sitting 126 mmHg BP Diastolic Sitting 66 mmHg Respiratory Rate 14 /min Pain Level 7 07/05/2017 3:38pm Height 61 inches 5'1" Weight 235.25 lb Heart Rate 72 /min BP Systolic Sitting 124 mmHg BP Diastolic Sitting 60 mmHg Pain Level 7 to 8 O2 % BldC Oximetry 94 % BMI (Body Mass Index) 44.4 kg/m2 06/03/2017 11:40am Height 61 inches 5'1" Heart Rate 70 /min BP Systolic Sitting 130 mmHg BP Diastolic Sitting 78 mmHg O2 % BldC Oximetry 94 % 04/05/2017 1:46pm Height 61 inches 5'1" Weight 231.50 lb Heart Rate 69 /min BP Systolic Sitting 140 mmHg BP Diastolic Sitting 78 mmHg BMI (Body Mass Index) 43.7 kg/m2 01/11/2017 1:10pm Heart Rate 79 /min BP Systolic 122 mmHg BP Diastolic 70 mmHg Respiratory Rate 18 /min O2 % BldC Oximetry 95 % 11/24/2016 12:54pm Heart Rate 84 /min BP Systolic 130 mmHg BP Diastolic 82 mmHg Respiratory Rate 18 /min Body Temperature 97.8 F 11/16/2016 2:27pm Weight 243.00 lb Heart Rate 88 /min BP Systolic Sitting 130 mmHg BP Diastolic Sitting 82 mmHg Respiratory Rate 15 /min Pain Level 7 O2 % BldC Oximetry 98 % 11/09/2016 12:57pm Heart Rate 78 /min Respiratory Rate 18 /min Body Temperature 98.1 F 10/26/2016 1:43pm Heart Rate 84 /min Respiratory Rate 18 /min Body Temperature 97.7 F 10/21/2016 10:58am Heart Rate 76 /min BP Systolic 124 mmHg BP Diastolic 66 mmHg Respiratory Rate 16 /min Body Temperature 96.4 F 10/16/2016 10:28am Heart Rate 72 /min BP Systolic 118 mmHg BP Diastolic 80 mmHg Respiratory Rate 18 /min Body Temperature 96.1 F 10/15/2016 10:56am Heart Rate 72 /min Respiratory Rate 18 /min Body Temperature 96.3 F 10/14/2016 11:46am Heart Rate 72 /min BP Systolic 104 mmHg BP Diastolic 68 mmHg 10/14/2016 10:47am Heart Rate 72 /min BP Systolic 90 mmHg BP Diastolic 60 mmHg Respiratory Rate 18 /min Body Temperature 97.3 F 07/13/2016 3:42pm Weight 247.00 lb Heart Rate 70 /min BP Systolic Sitting 145 mmHg BP Diastolic Sitting 84 mmHg 06/22/2016 3:37pm Weight 253.00 lb Heart Rate 69 /min BP Systolic Sitting 132 mmHg BP Diastolic Sitting 76 mmHg Pain Level 7 03/16/2016 3:28pm Height 61 inches 5'1" Weight 252.00 lb Heart Rate 66 /min BP Systolic Sitting 130 mmHg BP Diastolic Sitting 80 mmHg Pain Level 7 BMI (Body Mass Index) 47.6 kg/m2 03/05/2016 4:28pm Height 61 inches 5'1" Heart Rate 80 /min BP Systolic Sitting 144 mmHg BP Diastolic Sitting 70 mmHg Respiratory Rate 14 /min Body Temperature 97.3 F Pain Level 8 02/05/2016 2:49pm Height 61 inches 5'1" Heart Rate 76 /min BP Systolic Sitting 150 mmHg BP Diastolic Sitting 90 mmHg Pain Level 9 01/02/2016 12:59pm Height 61 inches 5'1" Heart Rate 78 /min BP Systolic Sitting 146 mmHg BP Diastolic Sitting 94 mmHg Respiratory Rate 14 /min Pain Level 8 12/18/2015 3:56pm Height 61 inches 5'1" Weight 248.00 lb Heart Rate 76 /min BP Systolic Sitting 160 mmHg BP Diastolic Sitting 90 mmHg Pain Level 7 BMI (Body Mass Index) 46.9 kg/m2 09/18/2015 2:51pm Height 61 inches 5'1" Heart Rate 80 /min BP Systolic Sitting 140 mmHg BP Diastolic Sitting 84 mmHg Respiratory Rate 18 /min Body Temperature 97.2 F Pain Level 7 06/19/2015 1:15pm Height 61 inches 5'1" Weight 242.38 lb Heart Rate 80 /min BP Systolic Sitting 160 mmHg BP Diastolic Sitting 90 mmHg Respiratory Rate 14 /min Pain Level 8 BMI (Body Mass Index) 45.8 kg/m2 03/19/2015 3:49pm Height 61 inches 5'1" Weight 241.25 lb Heart Rate 68 /min BP Systolic Sitting 164 mmHg BP Diastolic Sitting 98 mmHg Pain Level 7 BMI (Body Mass Index) 45.6 kg/m2 12/28/2014 2:42pm Height 61 inches 5'1" Heart Rate 84 /min BP Systolic Sitting 160 mmHg BP Diastolic Sitting 100 mmHg Pain Level 8 10/05/2014 3:32pm Height 61 inches 5'1" Weight 257.00 lb Heart Rate 80 /min BP Systolic Sitting 138 mmHg BP Diastolic Sitting 74 mmHg Pain Level 9 BMI (Body Mass Index) 48.6 kg/m2 09/28/2014 3:31pm Height 61 inches 5'1" Heart Rate 78 /min BP Systolic Sitting 182 mmHg BP Diastolic Sitting 82 mmHg Pain Level 8 R shoulder/arm 06/26/2014 3:32pm Height 61 inches 5'1" Weight 259.75 lb Heart Rate 78 /min BP Systolic Sitting 152 mmHg BP Diastolic Sitting 80 mmHg Pain Level 10 BMI (Body Mass Index) 49.1 kg/m2 04/03/2014 1:56pm Weight 261.00 lb Heart Rate 70 /min BP Systolic Sitting 132 mmHg BP Diastolic Sitting 80 mmHg 02/06/2014 1:36pm Height 62 inches 5'2" Heart Rate 85 /min BP Systolic Sitting 130 mmHg BP Diastolic Sitting 72 mmHg 11/14/2013 1:21pm Height 62 inches 5'2" Weight 256.75 lb Heart Rate 84 /min BP Systolic Sitting 146 mmHg BP Diastolic Sitting 88 mmHg BMI (Body Mass Index) 47.0 kg/m2 08/22/2013 1:02pm Height 62 inches 5'2" Weight 260.00 lb Heart Rate 84 /min BP Systolic Sitting 152 mmHg BP Diastolic Sitting 94 mmHg BMI (Body Mass Index) 47.5 kg/m2 05/30/2013 1:16pm Height 62 inches 5'2" Weight 260.00 lb Heart Rate 76 /min BP Systolic Sitting 140 mmHg BP Diastolic Sitting 80 mmHg BMI (Body Mass Index) 47.5 kg/m2 03/03/2013 1:10pm Height 62 inches 5'2" Weight 260.00 lb Heart Rate 72 /min BP Systolic Sitting 124 mmHg BP Diastolic Sitting 74 mmHg BMI (Body Mass Index) 47.5 kg/m2 12/06/2012 1:28pm Weight 260.00 lb Heart Rate 78 /min BP Systolic 142 mmHg BP Diastolic 80 mmHg 09/05/2012 1:06pm Height 64 inches 5'4" Weight 256.00 lb Heart Rate 70 /min BP Systolic Sitting 130 mmHg BP Diastolic Sitting 77 mmHg BMI (Body Mass Index) 43.9 kg/m2 05/31/2012 1:15pm Height 64 inches 5'4" Weight 260.00 lb Heart Rate 77 /min BP Systolic Sitting 124 mmHg BP Diastolic Sitting 76 mmHg BMI (Body Mass Index) 44.6 kg/m2 02/29/2012 1:24pm Height 64 inches 5'4" Heart Rate 71 /min BP Systolic Sitting 131 mmHg ` BP Diastolic Sitting 80 mmHg ` 12/01/2011 1:01pm Weight 256.00 lb Heart Rate 78 /min BP Systolic 156 mmHg BP Diastolic 90 mmHg 08/31/2011 1:26pm Height 61 inches 5'1" Weight 252.00 lb Heart Rate 76 /min BP Systolic Sitting 170 mmHg BP Diastolic Sitting 105 mmHg BMI (Body Mass Index) 47.6 kg/m2 05/28/2011 1:21pm Height 61 inches 5'1" Weight 243.00 lb Heart Rate 80 /min BP Systolic 140 mmHg BP Diastolic 90 mmHg BMI (Body Mass Index) 45.9 kg/m2 03/19/2011 11:44am Height 61 inches 5'1" Weight 235.00 lb Heart Rate 78 /min BP Systolic 140 mmHg BP Diastolic 90 mmHg BMI (Body Mass Index) 44.4 kg/m2 01/07/2011 11:55am Height 61 inches 5'1" Weight 245.00 lb Heart Rate 68 /min BP Systolic 140 mmHg BP Diastolic 90 mmHg BMI (Body Mass Index) 46.3 kg/m2 Results Test Date Facility Test Result H/L Range Note CBC Auto Diff 09/23/2018 [facility] White Blood 4.6 10^3/uL N 3.5-10.[address] [place] [address] [phone] Red Blood Count 3.64 10^6/uL Low 4.00-5.40 Hemoglobin 10.9 g/dL Low 12.0-16.0 Hematocrit 33 % Low 35-47 Mean Corpuscular Volume 91 fL N 80-97 Mean Corpuscular Hemoglobin 30 pg N 27-31 Mean Corpuscular HGB Conc 33 g/dL N 31-36 Red Cell Distribution Width 15 % N 10.5-15 Platelet Count 237 10^3/uL N 150-450 Mean Platelet Volume 9.0 fL N 7.4-10.4 Abs Neutrophils 2.9 10^3/uL N 1.5-7.7 Abs Lymphocytes 1.2 10^3/uL N 1.0-4.8 Abs Monocytes 0.3 10^3/uL N 0-0.8 Abs Eosinophils 0.1 10^3/uL N 0-0.6 Abs Basophils 0 10^3/uL N 0-0.2 Abs Nucleated RBC 0 10^3/uL Granulocyte % 63.3 % Lymphocyte % 26.2 % Monocyte % 6.8 % Eosinophil % 2.8 % Basophil % 0.9 % Nucleated Red Blood Cells % 0 Comp Metabolic Panel 09/23/2018 [facility] Sodium 138 mmol/L N 135-[address] [place] [address] [phone] Potassium 4.4 mmol/L N 3.5-5.0 Chloride 103 mmol/L N 101-111 Co2 Carbon Dioxide 26 mmol/L N 22-32 Anion Gap 9 mmol/L N 2-11 Glucose 95 mg/dL N 70-100 Blood Urea Nitrogen 19 mg/dL N 6-24 Creatinine 1.45 mg/dL High 0.51-0.95 BUN/Creatinine Ratio 13.1 N 8-20 Calcium 9.1 mg/dL N 8.6-10.3 Total Protein 6.8 g/dL N 6.4-8.9 Albumin 4.0 g/dL N 3.2-5.2 Globulin 2.8 g/dL N 2-4 Albumin/Globulin Ratio 1.4 N 1-3 Total Bilirubin 0.40 mg/dL N 0.2-1.0 Alkaline Phosphatase 86 U/L N 34-104 Alt 27 U/L N 7-52 Ast 33 U/L N 13-39 Egfr Non- 35.5 >60 Egfr 43.0 >60 2 Laboratory test 09/23/2018 [facility] C Reactive 3.18 mg/L N < 8.[address] [place] [address] [phone] Erythrocyte Sed Rate 50 mm/Hr High 0-40 CBC Auto Diff 06/24/2018 [facility] White Blood 4.4 10^3/uL N 3.5-10.[address] [place] [address] [phone] Red Blood Count 3.78 10^6/uL Low 4.00-5.40 Hemoglobin 11.0 g/dL Low 12.0-16.0 Hematocrit 33 % Low 35-47 Mean Corpuscular Volume 88 fL N 80-97 Mean Corpuscular Hemoglobin 29 pg N 27-31 Mean Corpuscular HGB Conc 33 g/dL N 31-36 Red Cell Distribution Width 15 % N 10.5-15 Platelet Count 227 10^3/uL N 150-450 Mean Platelet Volume 9.2 um3 N 7.4-10.4 Abs Neutrophils 2.6 10^3/uL N 1.5-7.7 Abs Lymphocytes 1.3 10^3/uL N 1.0-4.8 Abs Monocytes 0.3 10^3/uL N 0-0.8 Abs Eosinophils 0.1 10^3/uL N 0-0.6 Abs Basophils 0 10^3/uL N 0-0.2 Abs Nucleated RBC 0 10^3/uL Granulocyte % 59.2 % N 38-83 Lymphocyte % 29.2 % N 25-47 Monocyte % 7.9 % High 0-7 Eosinophil % 2.9 % N 0-6 Basophil % 0.8 % N 0-2 Nucleated Red Blood Cells % 0 Comp Metabolic Panel 06/24/2018 [facility] Sodium 136 mmol/L N 135-[address] [place] [address] [phone] Potassium 4.3 mmol/L N 3.5-5.0 Chloride 104 mmol/L N 101-111 Co2 Carbon Dioxide 24 mmol/L N 22-32 Anion Gap 8 mmol/L N 2-11 Glucose 101 mg/dL High 70-100 Blood Urea Nitrogen 25 mg/dL High 6-24 Creatinine 1.48 mg/dL High 0.51-0.95 BUN/Creatinine Ratio 16.9 N 8-20 Calcium 8.5 mg/dL Low 8.6-10.3 Total Protein 6.6 g/dL N 6.4-8.9 Albumin 3.8 g/dL N 3.2-5.2 Globulin 2.8 g/dL N 2-4 Albumin/Globulin Ratio 1.4 N 1-3 Total Bilirubin 0.30 mg/dL N 0.2-1.0 Alkaline Phosphatase 73 U/L N 34-104 Alt 15 U/L N 7-52 Ast 21 U/L N 13-39 Egfr Non- 34.7 >60 Egfr 41.9 >60 3 Laboratory test 06/24/2018 [facility] C Reactive 3.96 mg/L N < 8.01 [address] [place] [address] [phone] Erythrocyte Sed Rate 49 mm/Hr High 0-40 5 CBC Auto Diff 03/29/2018 [facility] White Blood 3.5 10^3/uL N 3.5-10.[address] [place] [address] [phone] Red Blood Count 3.76 10^6/uL Low 4.00-5.40 Hemoglobin 10.9 g/dL Low 12.0-16.0 Hematocrit 33 % Low 35-47 Mean Corpuscular Volume 87 fL N 80-97 Mean Corpuscular Hemoglobin 29 pg N 27-31 Mean Corpuscular HGB Conc 33 g/dL N 31-36 Red Cell Distribution Width 15 % N 10.5-15 Platelet Count 216 10^3/uL N 150-450 Mean Platelet Volume 9.2 um3 N 7.4-10.4 Abs Neutrophils 2.2 10^3/uL N 1.5-7.7 Abs Lymphocytes 0.8 10^3/uL Low 1.0-4.8 Abs Monocytes 0.3 10^3/uL N 0-0.8 Abs Eosinophils 0.1 10^3/uL N 0-0.6 Abs Basophils 0 10^3/uL N 0-0.2 Abs Nucleated RBC 0 10^3/uL Granulocyte % 62.9 % N 38-83 Lymphocyte % 24.0 % Low 25-47 Monocyte % 8.4 % High 0-7 Eosinophil % 4.2 % N 0-6 Basophil % 0.5 % N 0-2 Nucleated Red Blood Cells % 0 Comp Metabolic Panel 03/29/2018 [facility] Sodium 138 mmol/L N 135-145 [address] [place] [address] [phone] Potassium 4.6 mmol/L N 3.5-5.0 Chloride 102 mmol/L N 101-111 Co2 Carbon Dioxide 29 mmol/L N 22-32 Anion Gap 7 mmol/L N 2-11 Glucose 105 mg/dL High 70-100 Blood Urea Nitrogen 21 mg/dL N 6-24 Creatinine 1.36 mg/dL High 0.51-0.95 BUN/Creatinine Ratio 15.4 N 8-20 Calcium 9.0 mg/dL N 8.6-10.3 Total Protein 6.4 g/dL N 6.4-8.9 Albumin 3.6 g/dL N 3.2-5.2 Globulin 2.8 g/dL N 2-4 Albumin/Globulin Ratio 1.3 N 1-3 Total Bilirubin 0.30 mg/dL N 0.2-1.0 Alkaline Phosphatase 76 U/L N 34-104 Alt 16 U/L N 7-52 Ast 20 U/L N 13-39 Egfr Non- 38.3 >60 Egfr 49.3 >60 6 Laboratory test 03/29/2018 [facility] C Reactive 7.57 mg/L N < 8.[address] [place] [address] [phone] Erythrocyte Sed Rate 56 mm/Hr High 0-40 Laboratory test 02/04/2018 [facility] Lactic Acid 1.6 mmol/L N 0.5-2.0 7, [address] [place] [address] [phone] Inr/Protime 02/04/2018 [facility] Inr 0.96 N 0.77-1.[address] [place] [address] [phone] Laboratory test 02/04/2018 [facility] Partial 31.4 N 26.0- 36.[address] [address] PTT [phone] D Dimer Quantitative > 1050 ng/mL High Less Than 230 9 CBC Auto Diff 02/04/2018 [facility] White Blood 5.2 10^3/uL N 3.5-10.[address] [place] [address] [phone] Red Blood Count 4.08 10^6/uL N 4.0-5.4 Hemoglobin 11.5 g/dL Low 12.0-16.0 Hematocrit 35 % N 35-47 Mean Corpuscular Volume 87 fL N 80-97 Mean Corpuscular Hemoglobin 28 pg N 27-31 Mean Corpuscular HGB Conc 33 g/dL N 31-36 Red Cell Distribution Width 15 % N 10.5-15 Platelet Count 235 10^3/uL N 150-450 Mean Platelet Volume 8.5 um3 N 7.4-10.4 Abs Neutrophils 3.4 10^3/uL N 1.5-7.7 Abs Lymphocytes 1.3 10^3/uL N 1.0-4.8 Abs Monocytes 0.4 10^3/uL N 0-0.8 Abs Eosinophils 0.1 10^3/uL N 0-0.6 Abs Basophils 0 10^3/uL N 0-0.2 Abs Nucleated RBC 0 10^3/uL Granulocyte % 65.1 % N 38-83 Lymphocyte % 25.4 % N 25-47 Monocyte % 8.0 % High 0-7 Eosinophil % 1.3 % N 0-6 Basophil % 0.2 % N 0-2 Nucleated Red Blood Cells % 0 Comp Metabolic Panel 02/04/2018 [facility] Sodium 136 mmol/L Low [address] [place] [address] [phone] Potassium 4.0 mmol/L N 3.5-5.0 Chloride 100 mmol/L Low 101-111 Co2 Carbon Dioxide 26 mmol/L N 22-32 Anion Gap 10 mmol/L N 2-11 Glucose 90 mg/dL N 70-100 Blood Urea Nitrogen 30 mg/dL High 6-24 Creatinine 1.56 mg/dL High 0.51-0.95 BUN/Creatinine Ratio 19.2 N 8-20 Calcium 9.2 mg/dL N 8.6-10.3 Total Protein 7.4 g/dL N 6.4-8.9 Albumin 3.7 g/dL N 3.2-5.2 Globulin 3.7 g/dL N 2-4 Albumin/Globulin Ratio 1.0 N 1-3 Total Bilirubin 0.40 mg/dL N 0.2-1.0 Alkaline Phosphatase 73 U/L N 34-104 Alt 17 U/L N 7-52 Ast 24 U/L N 13-39 Egfr Non- 32.7 >60 Egfr 42.1 >60 10 Laboratory test 02/04/2018 [facility] Magnesium 2.0 mg/dL N 1.9-2.[address] [place] [address] [phone] Troponin-I (TnI) 0.01 ng/mL <0.04 TSH (Thyroid Stim Horm) 0.10 mcIU/mL Low 0.34-5.60 Laboratory test 02/04/2018 [facility] Rapid Strep Negative Negative [address] [place] [address] [phone] Laboratory test 02/04/2018 [facility] Rapid Strep A SEE RESULT [address] [place] [address] [phone] CBC Auto Diff 12/07/2017 [facility] White Blood 3.5 10^3/uL N 3.5-10.[address] [place] [address] [phone] Red Blood Count 3.82 10^6/uL Low 4.0-5.4 Hemoglobin 11.0 g/dL Low 12.0-16.0 Hematocrit 33 % Low 35-47 Mean Corpuscular Volume 87 fL N 80-97 Mean Corpuscular Hemoglobin 29 pg N 27-31 Mean Corpuscular HGB Conc 33 g/dL N 31-36 Red Cell Distribution Width 14 % N 10.5-15 Platelet Count 225 10^3/uL N 150-450 Mean Platelet Volume 9 um3 N 7.4-10.4 Abs Neutrophils 1.7 10^3/uL N 1.5-7.7 Abs Lymphocytes 1.2 10^3/uL N 1.0-4.8 Abs Monocytes 0.3 10^3/uL N 0-0.8 Abs Eosinophils 0.2 10^3/uL N 0-0.6 Abs Basophils 0 10^3/uL N 0-0.2 Abs Nucleated RBC 0 10^3/uL Granulocyte % 49.2 % N 38-83 Lymphocyte % 34.9 % N 25-47 Monocyte % 10.0 % High 0-7 Eosinophil % 5.3 % N 0-6 Basophil % 0.6 % N 0-2 Nucleated Red Blood Cells % 0 Comp Metabolic Panel 12/07/2017 [facility] Sodium 136 mmol/L N 133-[address] [place] [address] [phone] Potassium 4.9 mmol/L N 3.5-5.0 Chloride 101 mmol/L N 101-111 Co2 Carbon Dioxide 30 mmol/L N 22-32 Anion Gap 5 mmol/L N 2-11 Glucose 95 mg/dL N 70-100 Blood Urea Nitrogen 27 mg/dL High 6-24 Creatinine 1.38 mg/dL High 0.51-0.95 BUN/Creatinine Ratio 19.6 N 8-20 Calcium 9.0 mg/dL N 8.6-10.3 Total Protein 6.7 g/dL N 6.4-8.9 Albumin 3.8 g/dL N 3.2-5.2 Globulin 2.9 g/dL N 2-4 Albumin/Globulin Ratio 1.3 N 1-3 Total Bilirubin 0.40 mg/dL N 0.2-1.0 Alkaline Phosphatase 75 U/L N 34-104 Alt 24 U/L N 7-52 Ast 28 U/L N 13-39 Egfr Non- 37.7 >60 Egfr 48.5 >60 14 Laboratory test 12/07/2017 [facility] C Reactive 5.48 mg/L High < 5.00 [address] [place] [address] [phone] Erythrocyte Sed Rate 48 mm/Hr High 0-40 16 CBC Auto Diff 09/06/2017 [facility] White Blood 3.6 10^3/uL N 3.5-10.[address] [place] [address] [phone] Red Blood Count 3.80 10^6/uL Low 4.0-5.4 Hemoglobin 11.0 g/dL Low 12.0-16.0 Hematocrit 33 % Low 35-47 Mean Corpuscular Volume 88 fL N 80-97 Mean Corpuscular Hemoglobin 29 pg N 27-31 Mean Corpuscular HGB Conc 33 g/dL N 31-36 Red Cell Distribution Width 15 % N 10.5-15 Platelet Count 213 10^3/uL N 150-450 Mean Platelet Volume 9 um3 N 7.4-10.4 Abs Neutrophils 1.8 10^3/uL N 1.5-7.7 Abs Lymphocytes 1.3 10^3/uL N 1.0-4.8 Abs Monocytes 0.3 10^3/uL N 0-0.8 Abs Eosinophils 0.2 10^3/uL N 0-0.6 Abs Basophils 0 10^3/uL N 0-0.2 Abs Nucleated RBC 0 10^3/uL Granulocyte % 49.7 % N 38-83 Lymphocyte % 36.3 % N 25-47 Monocyte % 8.1 % N 1-9 Eosinophil % 5.1 % N 0-6 Basophil % 0.8 % N 0-2 Nucleated Red Blood Cells % 0.1 Comp Metabolic Panel 09/06/2017 [facility] Sodium 136 mmol/L N 133-[address] [place] [address] [phone] Potassium 4.3 mmol/L N 3.5-5.0 Chloride 101 mmol/L N 101-111 Co2 Carbon Dioxide 30 mmol/L N 22-32 Anion Gap 5 mmol/L N 2-11 Glucose 92 mg/dL N 70-100 Blood Urea Nitrogen 27 mg/dL High 6-24 Creatinine 1.63 mg/dL High 0.51-0.95 BUN/Creatinine Ratio 16.6 N 8-20 Calcium 8.6 mg/dL N 8.6-10.3 Total Protein 6.4 g/dL N 6.4-8.9 Albumin 3.9 g/dL N 3.2-5.2 Globulin 2.5 g/dL N 2-4 Albumin/Globulin Ratio 1.6 N 1-3 Total Bilirubin 0.30 mg/dL N 0.2-1.0 Alkaline Phosphatase 62 U/L N 34-104 Alt 16 U/L N 7-52 Ast 20 U/L N 13-39 Egfr Non- 31.1 >60 Egfr 40.0 >60 17 Laboratory test 09/06/2017 [facility] C Reactive 1.52 mg/L N < 5.00 [address] [place] [address] [phone] Erythrocyte Sed Rate 24 mm/Hr N 0-40 CBC Auto Diff 07/01/2017 [facility] White Blood 4.1 10^3/uL N 3.5-10.[address] [place] [address] [phone] Red Blood Count 3.90 10^6/uL Low 4.0-5.4 Hemoglobin 11.0 g/dL Low 12.0-16.0 Hematocrit 33 % Low 35-47 Mean Corpuscular Volume 85 fL N 80-97 Mean Corpuscular Hemoglobin 28 pg N 27-31 Mean Corpuscular HGB Conc 33 g/dL N 31-36 Red Cell Distribution Width 15 % N 10.5-15 Platelet Count 235 10^3/uL N 150-450 Mean Platelet Volume 9 um3 N 7.4-10.4 Abs Neutrophils 2.3 10^3/uL N 1.5-7.7 Abs Lymphocytes 1.2 10^3/uL N 1.0-4.8 Abs Monocytes 0.3 10^3/uL N 0-0.8 Abs Eosinophils 0.2 10^3/uL N 0-0.6 Abs Basophils 0 10^3/uL N 0-0.2 Abs Nucleated RBC 0 10^3/uL N Granulocyte % 57.3 % N 38-83 Lymphocyte % 29.5 % N 25-47 Monocyte % 7.7 % N 1-9 Eosinophil % 4.9 % N 0-6 Basophil % 0.6 % N 0-2 Nucleated Red Blood Cells % 0 N Comp Metabolic Panel 07/01/2017 [facility] Sodium 137 mmol/L N 133-[address] [place] [address] [phone] Potassium 4.0 mmol/L N 3.5-5.0 Chloride 101 mmol/L N 101-111 Co2 Carbon Dioxide 29 mmol/L N 22-32 Anion Gap 7 mmol/L N 2-11 Glucose 123 mg/dL High 70-100 Blood Urea Nitrogen 30 mg/dL High 6-24 Creatinine 1.44 mg/dL High 0.51-0.95 BUN/Creatinine Ratio 20.8 High 8-20 Calcium 8.7 mg/dL N 8.6-10.3 Total Protein 6.4 g/dL N 6.4-8.9 Albumin 3.6 g/dL N 3.2-5.2 Globulin 2.8 g/dL N 2-4 Albumin/Globulin Ratio 1.3 N 1-3 Total Bilirubin 0.40 mg/dL N 0.2-1.0 Alkaline Phosphatase 68 U/L N 34-104 Alt 17 U/L N 7-52 Ast 24 U/L N 13-39 Egfr Non- 35.9 N >60 Egfr 46.1 N >60 19 Laboratory test 07/01/2017 [facility] C Reactive 2.61 mg/L N < 5.00 [address] [place] [address] [phone] Erythrocyte Sed Rate 29 mm/Hr N 0-40 CBC Auto Diff 04/05/2017 [facility] White Blood 5.2 10^3/uL N 3.5-10.[address] [place] [address] [phone] Red Blood Count 3.53 10^6/uL Low 4.0-5.4 Hemoglobin 10.1 g/dL Low 12.0-16.0 Hematocrit 30 % Low 35-47 Mean Corpuscular Volume 86 fL N 80-97 Mean Corpuscular Hemoglobin 29 pg N 27-31 Mean Corpuscular HGB Conc 33 g/dL N 31-36 Red Cell Distribution Width 15 % N 10.5-15 Platelet Count 270 10^3/uL N 150-450 Mean Platelet Volume 9 um3 N 7.4-10.4 Abs Neutrophils 3.5 10^3/uL N 1.5-7.7 Abs Lymphocytes 1.2 10^3/uL N 1.0-4.8 Abs Monocytes 0.3 10^3/uL N 0-0.8 Abs Eosinophils 0.2 10^3/uL N 0-0.6 Abs Basophils 0 10^3/uL N 0-0.2 Abs Nucleated RBC 0 10^3/uL N Granulocyte % 67.7 % N 38-83 Lymphocyte % 22.4 % Low 25-47 Monocyte % 6.1 % N 1-9 Eosinophil % 3.3 % N 0-6 Basophil % 0.5 % N 0-2 Nucleated Red Blood Cells % 0.1 N Comp Metabolic Panel 04/05/2017 [facility] Sodium 137 mmol/L N 133-[address] [place] [address] [phone] Potassium 4.0 mmol/L N 3.5-5.0 Chloride 102 mmol/L N 101-111 Co2 Carbon Dioxide 26 mmol/L N 22-32 Anion Gap 9 mmol/L N 2-11 Glucose 95 mg/dL N 70-100 Blood Urea Nitrogen 25 mg/dL High 6-24 Creatinine 1.41 mg/dL High 0.51-0.95 BUN/Creatinine Ratio 17.7 N 8-20 Calcium 8.6 mg/dL N 8.6-10.3 Total Protein 6.4 g/dL N 6.4-8.9 Albumin 3.7 g/dL N 3.2-5.2 Globulin 2.7 g/dL N 2-4 Albumin/Globulin Ratio 1.4 N 1-3 Total Bilirubin 0.40 mg/dL N 0.2-1.0 Alkaline Phosphatase 83 U/L N 34-104 Alt 12 U/L N 7-52 Ast 17 U/L N 13-39 Egfr Non- 36.9 N >60 Egfr 47.4 N >60 22 Laboratory test 04/05/2017 [facility] C Reactive 16.24 mg/L High < 5.00 [address] [place] [address] [phone] Erythrocyte Sed Rate 84 mm/Hr High 0-40 24 CBC Auto Diff 01/06/2017 [facility] White Blood 5.0 10^3/uL N 3.5-10.[address] [place] [address] [phone] Red Blood Count 3.73 10^6/uL Low 4.0-5.4 Hemoglobin 10.5 g/dL Low 12.0-16.0 Hematocrit 32 % Low 35-47 Mean Corpuscular Volume 85 fL N 80-97 Mean Corpuscular Hemoglobin 28 pg N 27-31 Mean Corpuscular HGB Conc 33 g/dL N 31-36 Red Cell Distribution Width 16 % High 10.5-15 Platelet Count 250 10^3/uL N 150-450 Mean Platelet Volume 9 um3 N 7.4-10.4 Abs Neutrophils 3.0 10^3/uL N 1.5-7.7 Abs Lymphocytes 1.4 10^3/uL N 1.0-4.8 Abs Monocytes 0.3 10^3/uL N 0-0.8 Abs Eosinophils 0.1 10^3/uL N 0-0.6 Abs Basophils 0.1 10^3/uL N 0-0.2 Abs Nucleated RBC 0 10^3/uL N Granulocyte % 61.4 % N 38-83 Lymphocyte % 28.2 % N 25-47 Monocyte % 6.7 % N 1-9 Eosinophil % 2.1 % N 0-6 Basophil % 1.6 % N 0-2 Nucleated Red Blood Cells % 0 N Comp Metabolic Panel 01/06/2017 [facility] Sodium 137 mmol/L N 133-[address] [place] [address] [phone] Potassium 3.9 mmol/L N 3.5-5.0 Chloride 101 mmol/L N 101-111 Co2 Carbon Dioxide 29 mmol/L N 22-32 Anion Gap 7 mmol/L N 2-11 Glucose 122 mg/dL High 70-100 Blood Urea Nitrogen 17 mg/dL N 6-24 Creatinine 1.35 mg/dL High 0.51-0.95 BUN/Creatinine Ratio 12.6 N 8-20 Calcium 9.3 mg/dL N 8.6-10.3 Total Protein 6.6 g/dL N 6.4-8.9 Albumin 3.8 g/dL N 3.2-5.2 Globulin 2.8 g/dL N 2-4 Albumin/Globulin Ratio 1.4 N 1-3 Total Bilirubin 0.30 mg/dL N 0.2-1.0 Alkaline Phosphatase 72 U/L N 34-104 Alt 11 U/L N 7-52 Ast 17 U/L N 13-39 Egfr Non- 38.8 N >60 Egfr 49.9 N >60 26 Laboratory test 01/06/2017 [facility] C Reactive 7.23 mg/L High < 5.00 [address] [place] [address] [phone] Erythrocyte Sed Rate 65 mm/Hr High 0-40 28 CBC Auto Diff 11/12/2016 [facility] White Blood 5.4 10^3/uL N 3.5-10.[address] [place] [address] [phone] Red Blood Count 3.64 10^6/uL Low 4.0-5.4 Hemoglobin 10.1 g/dL Low 12.0-16.0 Hematocrit 31 % Low 35-47 Mean Corpuscular Volume 86 fL N 80-97 Mean Corpuscular Hemoglobin 28 pg N 27-31 Mean Corpuscular HGB Conc 32 g/dL N 31-36 Red Cell Distribution Width 16 % High 10.5-15 Platelet Count 258 10^3/uL N 150-450 Mean Platelet Volume 9 um3 N 7.4-10.4 Abs Neutrophils 3.6 10^3/uL N 1.5-7.7 Abs Lymphocytes 1.1 10^3/uL N 1.0-4.8 Abs Monocytes 0.3 10^3/uL N 0-0.8 Abs Eosinophils 0.3 10^3/uL N 0-0.6 Abs Basophils 0 10^3/uL N 0-0.2 Abs Nucleated RBC 0 10^3/uL N Granulocyte % 67.2 % N 38-83 Lymphocyte % 20.5 % Low 25-47 Monocyte % 6.2 % N 1-9 Eosinophil % 5.4 % N 0-6 Basophil % 0.7 % N 0-2 Nucleated Red Blood Cells % 0 N Comp Metabolic Panel 11/12/2016 [facility] Sodium 139 mmol/L N 133-[address] [place] [address] [phone] Potassium 3.9 mmol/L N 3.5-5.0 Chloride 104 mmol/L N 101-111 Co2 Carbon Dioxide 26 mmol/L N 22-32 Anion Gap 9 mmol/L N 2-11 Glucose 104 mg/dL High 70-100 Blood Urea Nitrogen 20 mg/dL N 6-24 Creatinine 1.45 mg/dL High 0.51-0.95 BUN/Creatinine Ratio 13.8 N 8-20 Calcium 8.7 mg/dL N 8.6-10.3 Total Protein 6.6 g/dL N 6.4-8.9 Albumin 3.7 g/dL N 3.2-5.2 Globulin 2.9 g/dL N 2-4 Albumin/Globulin Ratio 1.3 N 1-3 Total Bilirubin 0.40 mg/dL N 0.2-1.0 Alkaline Phosphatase 81 U/L N 34-104 Alt 11 U/L N 7-52 Ast 16 U/L N 13-39 Egfr Non- 35.7 N >60 Egfr 45.9 N >60 30 Laboratory test 11/12/2016 [facility] C Reactive 7.75 mg/L High < 5.00 [address] [place] [address] [phone] Erythrocyte Sed Rate 80 mm/Hr High 0-40 32 Body Fluid C&S 10/14/2016 [facility] Body Fluid SEE RESULT 33, [address] [place] [address] Stain [phone] Comp Metabolic 07/10/2016 [facility] Sodium 137 mmol/L N 133- 14 [address] [place] [address] [phone] Potassium 3.9 mmol/L N 3.5-5.0 Chloride 102 mmol/L N 101-111 Co2 Carbon Dioxide 28 mmol/L N 22-32 Anion Gap 7 mmol/L N 2-11 Glucose 105 mg/dL High 70-100 Blood Urea Nitrogen 19 mg/dL N 6-24 Creatinine 1.27 mg/dL High 0.51-0.95 BUN/Creatinine Ratio 15.0 N 8-20 Calcium 8.5 mg/dL Low 8.6-10.3 Total Protein 6.6 g/dL N 6.4-8.9 Albumin 3.8 g/dL N 3.2-5.2 Globulin 2.8 g/dL N 2-4 Albumin/Globulin Ratio 1.4 N 1-3 Total Bilirubin 0.30 mg/dL N 0.2-1.0 Alkaline Phosphatase 74 U/L N 34-104 Alt 14 U/L N 7-52 Ast 21 U/L N 13-39 Egfr Non- 41.6 N >60 Egfr 53.5 N >60 36 Laboratory test 07/10/2016 [facility] C Reactive 6.27 mg/L High < 5.00 [address] [place] [address] [phone] CBC Auto Diff 07/10/2016 [facility] White Blood 5.0 N 3.5- 10.[address] Count 10^3/[place] [address] [phone] Red Blood Count 3.67 10^6/uL Low 4.0-5.4 Hemoglobin 10.5 g/dL Low 12.0-16.0 Hematocrit 32 % Low 35-47 Mean Corpuscular Volume 87 fL N 80-97 Mean Corpuscular Hemoglobin 29 pg N 27-31 Mean Corpuscular HGB Conc 33 g/dL N 31-36 Red Cell Distribution Width 16 % High 10.5-15 Platelet Count 257 10^3/uL N 150-450 Mean Platelet Volume 9 um3 N 7.4-10.4 Abs Neutrophils 2.7 10^3/uL N 1.5-7.7 Abs Lymphocytes 1.4 10^3/uL N 1.0-4.8 Abs Monocytes 0.5 10^3/uL N 0-0.8 Abs Eosinophils 0.4 10^3/uL N 0-0.6 Abs Basophils 0 10^3/uL N 0-0.2 Abs Nucleated RBC 0 10^3/uL N Granulocyte % 55.1 % N 38-83 Lymphocyte % 27.4 % N 25-47 Monocyte % 9.1 % High 1-9 Eosinophil % 7.7 % High 0-6 Basophil % 0.7 % N 0-2 Nucleated Red Blood Cells % 0.1 N Laboratory 07/10/2016 [facility] Erythrocyte Sed 55 mm/Hr High 0-40 38 test finding [address] [place] [address] [phone] Laboratory 07/10/2016 [facility] Ferritin 73.8 N 11-307 39, 40 test finding [address] ng/[place] [address] [phone] Iron & Iron 07/10/2016 [facility] Iron 29 g/dL Low 50-[address] [place] [address] [phone] Unsaturated Iron Binding 271 g/dL N Total Iron Binding Capacity 300 g/dL N 250-450 % Iron Saturation 10 % Low 15-55 Comp Metabolic Panel 06/19/2016 [facility] Sodium 137 mmol/L N 133-[address] [place] [address] [phone] Potassium 4.7 mmol/L N 3.5-5.0 Chloride 103 mmol/L N 101-111 Co2 Carbon Dioxide 28 mmol/L N 22-32 Anion Gap 6 mmol/L N 2-11 Glucose 88 mg/dL N 70-100 Blood Urea Nitrogen 32 mg/dL High 6-24 Creatinine 1.57 mg/dL High 0.51-0.95 BUN/Creatinine Ratio 20.4 High 8-20 Calcium 8.6 mg/dL N 8.6-10.3 Total Protein 6.2 g/dL Low 6.4-8.9 Albumin 3.7 g/dL N 3.2-5.2 Globulin 2.5 g/dL N 2-4 Albumin/Globulin Ratio 1.5 N 1-3 Total Bilirubin 0.30 mg/dL N 0.2-1.0 Alkaline Phosphatase 78 U/L N 34-104 Alt 18 U/L N 7-52 Ast 21 U/L N 13-39 Egfr Non- 32.6 N >60 Egfr 41.9 N >60 42 Laboratory test 06/19/2016 [facility] C Reactive 6.28 mg/L High < 5.00 [address] [place] [address] [phone] CBC Auto Diff 06/19/2016 [facility] White Blood 5.2 N 3.5- 10.[address] Count 10^3/[place] [address] [phone] Red Blood Count 3.62 10^6/uL Low 4.0-5.4 Hemoglobin 10.3 g/dL Low 12.0-16.0 Hematocrit 31 % Low 35-47 Mean Corpuscular Volume 86 fL N 80-97 Mean Corpuscular Hemoglobin 29 pg N 27-31 Mean Corpuscular HGB Conc 33 g/dL N 31-36 Red Cell Distribution Width 16 % High 10.5-15 Platelet Count 270 10^3/uL N 150-450 Mean Platelet Volume 8 um3 N 7.4-10.4 Abs Neutrophils 3.2 10^3/uL N 1.5-7.7 Abs Lymphocytes 1.3 10^3/uL N 1.0-4.8 Abs Monocytes 0.4 10^3/uL N 0-0.8 Abs Eosinophils 0.3 10^3/uL N 0-0.6 Abs Basophils 0.1 10^3/uL N 0-0.2 Abs Nucleated RBC 0 10^3/uL N Granulocyte % 61.4 % N 38-83 Lymphocyte % 24.5 % Low 25-47 Monocyte % 6.8 % N 1-9 Eosinophil % 5.5 % N 0-6 Basophil % 1.8 % N 0-2 Nucleated Red Blood Cells % 0 N Laboratory test 06/19/2016 [facility] Erythrocyte Sed 60 mm/Hr High 0-40 [address] [place] [address] [phone] CBC W/Auto Diff 03/24/2016 [facility] White Blood 4.7 N 3.5- 10.[address] Count 10^3/[place] [address] [phone] Red Blood Count 3.90 10^6/uL Low 4.0-5.4 Hemoglobin 11.1 g/dL Low 12.0-16.0 Hematocrit 34 % Low 35-47 Mean Corpuscular Volume 86 fL N 80-97 Mean Corpuscular Hemoglobin 29 pg N 27-31 Mean Corpuscular HGB Conc 33 g/dL N 31-36 Red Cell Distribution Width 15 % N 10.5-15 Platelet Count 220 10^3/uL N 150-450 Mean Platelet Volume 9 um3 N 7.4-10.4 Abs Neutrophils 2.6 10^3/uL N 1.5-7.7 Abs Lymphocytes 1.4 10^3/uL N 1.0-4.8 Abs Monocytes 0.4 10^3/uL N 0-0.8 Abs Eosinophils 0.3 10^3/uL N 0-0.6 Abs Basophils 0 10^3/uL N 0-0.2 Abs Nucleated RBC 0 10^3/uL N Granulocyte % 56.0 % N 38-83 Lymphocyte % 29.4 % N 25-47 Monocyte % 8.0 % N 1-9 Eosinophil % 6.0 % N 0-6 Basophil % 0.6 % N 0-2 Nucleated Red Blood Cells % 0.1 N CMP Panel 03/24/2016 [facility] Sodium 136 mmol/L N 133-[address] [place] [address] [phone] Potassium 4.4 mmol/L N 3.5-5.0 Chloride 101 mmol/L N 101-111 Co2 Carbon Dioxide 31 mmol/L N 22-32 Anion Gap 4 mmol/L N 2-11 Glucose 88 mg/dL N 70-100 Blood Urea Nitrogen 27 mg/dL High 6-24 Creatinine 1.28 mg/dL High 0.51-0.95 BUN/Creatinine Ratio 21.1 High 8-20 Calcium 8.8 mg/dL N 8.6-10.3 Total Protein 6.3 g/dL Low 6.4-8.9 Albumin 3.9 g/dL N 3.2-5.2 Globulin 2.4 g/dL N 2-4 Albumin/Globulin Ratio 1.6 N 1-3 Total Bilirubin 0.30 mg/dL N 0.2-1.0 Alkaline Phosphatase 114 U/L High 34-104 Alt 32 U/L N 7-52 Ast 22 U/L N 13-39 Egfr Non- 41.3 N >60 Egfr 53.2 N >60 45 Laboratory test 03/24/2016 [facility] Erythrocyte Sed 37 mm/Hr N 0-[address] [place] [address] [phone] C Reactive Protein 4.50 mg/L N < 5.00 46 CBC Auto Diff 01/08/2016 [facility] White Blood 5.2 10^3/uL N 3.5-10.[address] [place] [address] [phone] Red Blood Count 3.95 10^6/uL Low 4.0-5.4 Hemoglobin 11.3 g/dL Low 12.0-16.0 Hematocrit 34 % Low 35-47 Mean Corpuscular Volume 87 fL N 80-97 Mean Corpuscular Hemoglobin 29 pg N 27-31 Mean Corpuscular HGB Conc 33 g/dL N 31-36 Red Cell Distribution Width 15 % N 10.5-15 Platelet Count 237 10^3/uL N 150-450 Mean Platelet Volume 9 um3 N 7.4-10.4 Abs Neutrophils 3.2 10^3/uL N 1.5-7.7 Abs Lymphocytes 1.3 10^3/uL N 1.0-4.8 Abs Monocytes 0.4 10^3/uL N 0-0.8 Abs Eosinophils 0.2 10^3/uL N 0-0.6 Abs Basophils 0 10^3/uL N 0-0.2 Abs Nucleated RBC 0.02 10^3/uL N Granulocyte % 61.9 % N 38-83 Lymphocyte % 25.0 % N 25-47 Monocyte % 8.1 % N 1-9 Eosinophil % 4.5 % N 0-6 Basophil % 0.5 % N 0-2 Nucleated Red Blood Cells % 0.3 N Comp Metabolic Panel 01/08/2016 [facility] Sodium 137 mmol/L N 133-[address] [place] [address] [phone] Potassium 4.5 mmol/L N 3.5-5.0 Chloride 104 mmol/L N 101-111 Co2 Carbon Dioxide 25 mmol/L N 22-32 Anion Gap 8 mmol/L N 2-11 Glucose 98 mg/dL N 70-100 Blood Urea Nitrogen 29 mg/dL High 6-24 Creatinine 1.22 mg/dL High 0.51-0.95 BUN/Creatinine Ratio 23.8 High 8-20 Calcium 8.9 mg/dL N 8.6-10.3 Total Protein 6.5 g/dL N 6.4-8.9 Albumin 3.9 g/dL N 3.2-5.2 Globulin 2.6 g/dL N 2-4 Albumin/Globulin Ratio 1.5 N 1-3 Total Bilirubin 0.30 mg/dL N 0.2-1.0 Alkaline Phosphatase 84 U/L N 34-104 Alt 14 U/L N 7-52 Ast 17 U/L N 13-39 Egfr Non- 43.7 N >60 Egfr 56.2 N >60 47 Laboratory test 01/08/2016 [facility] Erythrocyte Sed 39 mm/Hr N 0-[address] [place] [address] [phone] C Reactive Protein 3.81 mg/L N < 5.00 48 Comp Metabolic Panel 01/08/2016 [facility] Sodium 137 mmol/L N 133-[address] [place] [address] [phone] Potassium 4.5 mmol/L N 3.5-5.0 Chloride 104 mmol/L N 101-111 Co2 Carbon Dioxide 25 mmol/L N 22-32 Anion Gap 8 mmol/L N 2-11 Glucose 98 mg/dL N 70-100 Blood Urea Nitrogen 29 mg/dL High 6-24 Creatinine 1.22 mg/dL High 0.51-0.95 BUN/Creatinine Ratio 23.8 High 8-20 Calcium 8.9 mg/dL N 8.6-10.3 Total Protein 6.5 g/dL N 6.4-8.9 Albumin 3.9 g/dL N 3.2-5.2 Globulin 2.6 g/dL N 2-4 Albumin/Globulin Ratio 1.5 N 1-3 Total Bilirubin 0.30 mg/dL N 0.2-1.0 Alkaline Phosphatase 84 U/L N 34-104 Alt 14 U/L N 7-52 Ast 17 U/L N 13-39 Egfr Non- 43.7 N >60 Egfr 56.2 N >60 49 Laboratory test 01/08/2016 [facility] C Reactive 3.81 mg/L N < 5.00 [address] [place] [address] [phone] CBC Auto Diff 01/08/2016 [facility] White Blood 5.2 N 3.5- 10.[address] Count 10^3/[place] [address] [phone] Red Blood Count 3.95 10^6/uL Low 4.0-5.4 Hemoglobin 11.3 g/dL Low 12.0-16.0 Hematocrit 34 % Low 35-47 Mean Corpuscular Volume 87 fL N 80-97 Mean Corpuscular Hemoglobin 29 pg N 27-31 Mean Corpuscular HGB Conc 33 g/dL N 31-36 Red Cell Distribution Width 15 % N 10.5-15 Platelet Count 237 10^3/uL N 150-450 Mean Platelet Volume 9 um3 N 7.4-10.4 Abs Neutrophils 3.2 10^3/uL N 1.5-7.7 Abs Lymphocytes 1.3 10^3/uL N 1.0-4.8 Abs Monocytes 0.4 10^3/uL N 0-0.8 Abs Eosinophils 0.2 10^3/uL N 0-0.6 Abs Basophils 0 10^3/uL N 0-0.2 Abs Nucleated RBC 0.02 10^3/uL N Granulocyte % 61.9 % N 38-83 Lymphocyte % 25.0 % N 25-47 Monocyte % 8.1 % N 1-9 Eosinophil % 4.5 % N 0-6 Basophil % 0.5 % N 0-2 Nucleated Red Blood Cells % 0.3 N Laboratory test 01/08/2016 [facility] Erythrocyte Sed 39 mm/Hr N 0-[address] [place] [address] [phone] CBC Auto Diff 10/29/2015 [facility] White Blood 4.5 N 3.5- 10.[address] Count 10^3/[place] [address] [phone] Red Blood Count 4.08 10^6/uL N 4.0-5.4 Hemoglobin 11.5 g/dL Low 12.0-16.0 Hematocrit 36 % N 35-47 Mean Corpuscular Volume 88 fL N 80-97 Mean Corpuscular Hemoglobin 28 pg N 27-31 Mean Corpuscular HGB Conc 32 g/dL N 31-36 Red Cell Distribution Width 15 % N 10.5-15 Platelet Count 228 10^3/uL N 150-450 Mean Platelet Volume 9 um3 N 7.4-10.4 Abs Neutrophils 2.4 10^3/uL N 1.5-7.7 Abs Lymphocytes 1.3 10^3/uL N 1.0-4.8 Abs Monocytes 0.4 10^3/uL N 0-0.8 Abs Eosinophils 0.4 10^3/uL N 0-0.6 Abs Basophils 0 10^3/uL N 0-0.2 Abs Nucleated RBC 0 10^3/uL N Granulocyte % 52.8 % N 38-83 Lymphocyte % 29.9 % N 25-47 Monocyte % 8.2 % N 1-9 Eosinophil % 8.7 % High 0-6 Basophil % 0.4 % N 0-2 Nucleated Red Blood Cells % 0.1 N Comp Metabolic Panel 10/29/2015 [facility] Sodium 139 mmol/L N 133-[address] [place] [address] [phone] Potassium 3.9 mmol/L N 3.5-5.0 Chloride 105 mmol/L N 101-111 Co2 Carbon Dioxide 29 mmol/L N 22-32 Anion Gap 5 mmol/L N 2-11 Glucose 119 mg/dL High 70-100 Blood Urea Nitrogen 24 mg/dL N 6-24 Creatinine 1.26 mg/dL High 0.51-0.95 BUN/Creatinine Ratio 19.0 N 8-20 Calcium 8.9 mg/dL N 8.6-10.3 Total Protein 6.5 g/dL N 6.4-8.9 Albumin 4.1 g/dL N 3.2-5.2 Globulin 2.4 g/dL N 2-4 Albumin/Globulin Ratio 1.7 N 1-3 Total Bilirubin 0.30 mg/dL N 0.2-1.0 Alkaline Phosphatase 100 U/L N 34-104 Alt 21 U/L N 7-52 Ast 25 U/L N 13-39 Egfr Non- 42.1 N >60 Egfr 54.1 N >60 51 Laboratory test 10/29/2015 [facility] Erythrocyte Sed 41 mm/Hr High 0-40 [address] [place] [address] [phone] C Reactive Protein 4.53 mg/L N < 5.00 53 CBC Auto Diff 06/28/2015 [facility] White Blood 5.2 10^3/uL N 4.8-10.[address] [place] [address] [phone] Red Blood Count 3.82 10^6/uL Low 4.0-5.4 Hemoglobin 11.2 g/dL Low 12.0-16.0 Hematocrit 34 % Low 35-47 Mean Corpuscular Volume 88 fL N 80-97 Mean Corpuscular Hemoglobin 29 pg N 27-31 Mean Corpuscular HGB Conc 33 g/dL N 31-36 Red Cell Distribution Width 15 % N 10.5-15 Platelet Count 237 10^3/uL N 150-450 Mean Platelet Volume 9 um3 N 7.4-10.4 Abs Neutrophils 3.0 10^3/uL N 1.5-7.7 Abs Lymphocytes 1.5 10^3/uL N 1.0-4.8 Abs Monocytes 0.4 10^3/uL N 0-0.8 Abs Eosinophils 0.3 10^3/uL N 0-0.6 Abs Basophils 0 10^3/uL N 0-0.2 Abs Nucleated RBC 0 10^3/uL N Granulocyte % 58.1 % N 38-83 Lymphocyte % 28.0 % N 25-47 Monocyte % 7.7 % N 1-9 Eosinophil % 5.7 % N 0-6 Basophil % 0.5 % N 0-2 Nucleated Red Blood Cells % 0 N Comp Metabolic Panel 06/28/2015 [facility] Sodium 137 mmol/L N 133-[address] [place] [address] [phone] Potassium 3.5 mmol/L N 3.5-5.0 Chloride 101 mmol/L N 101-111 Co2 Carbon Dioxide 28 mmol/L N 22-32 Anion Gap 8 mmol/L N 2-11 Glucose 120 mg/dL High 70-100 Blood Urea Nitrogen 22 mg/dL N 6-24 Creatinine 1.17 mg/dL High 0.51-0.95 BUN/Creatinine Ratio 18.8 N 8-20 Calcium 8.7 mg/dL N 8.6-10.3 Total Protein 6.2 g/dL Low 6.4-8.9 Albumin 3.8 g/dL N 3.2-5.2 Globulin 2.4 g/dL N 2-4 Albumin/Globulin Ratio 1.6 N 1-3 Total Bilirubin 0.40 mg/dL N 0.2-1.0 Alkaline Phosphatase 93 U/L N 34-104 Alt 20 U/L N 7-52 Ast 24 U/L N 13-39 Egfr Non- 45.9 N >60 Egfr 59.0 N >60 54 Laboratory test 06/28/2015 [facility] Erythrocyte Sed 48 mm/Hr High 0-40 [address] [place] [address] [phone] C Reactive Protein 8.33 mg/L High < 5.00 56 CBC Auto Diff 03/19/2015 [facility] White Blood 6.1 10^3/uL N 4.8-10.[address] [place] [address] [phone] Red Blood Count 4.24 10^6/uL N 4.0-5.4 Hemoglobin 11.9 g/dL Low 12.0-16.0 Hematocrit 37 % N 35-47 Mean Corpuscular Volume 87 fL N 80-97 Mean Corpuscular Hemoglobin 28 pg N 27-31 Mean Corpuscular HGB Conc 32 g/dL N 31-36 Red Cell Distribution Width 16 % High 10.5-15 Platelet Count 245 10^3/uL N 150-450 Mean Platelet Volume 9 um3 N 7.4-10.4 Abs Neutrophils 3.7 10^3/uL N 1.5-7.7 Abs Lymphocytes 1.6 10^3/uL N 1.0-4.8 Abs Monocytes 0.4 10^3/uL N 0-0.8 Abs Eosinophils 0.4 10^3/uL N 0-0.6 Abs Basophils 0 10^3/uL N 0-0.2 Abs Nucleated RBC 0 10^3/uL N Granulocyte % 60.8 % N 38-83 Lymphocyte % 25.9 % N 25-47 Monocyte % 6.5 % N 1-9 Eosinophil % 6.3 % High 0-6 Basophil % 0.5 % N 0-2 Nucleated Red Blood Cells % 0.1 N Comp Metabolic Panel 03/19/2015 [facility] Sodium 136 mmol/L N 133-[address] [place] [address] [phone] Potassium 4.0 mmol/L N 3.5-5.0 Chloride 100 mmol/L Low 101-111 Co2 Carbon Dioxide 28 mmol/L N 22-32 Anion Gap 8 mmol/L N 2-11 Glucose 84 mg/dL N 70-100 Blood Urea Nitrogen 25 mg/dL High 6-24 Creatinine 1.17 mg/dL High 0.51-0.95 BUN/Creatinine Ratio 21.4 High 8-20 Calcium 8.9 mg/dL N 8.6-10.3 Total Protein 6.7 g/dL N 6.4-8.9 Albumin 4.1 g/dL N 3.2-5.2 Globulin 2.6 g/dL N 2-4 Albumin/Globulin Ratio 1.6 N 1-3 Total Bilirubin 0.50 mg/dL N 0.2-1.0 Alkaline Phosphatase 88 U/L N 34-104 Alt 15 U/L N 7-52 Ast 21 U/L N 13-39 Egfr Non- 46.0 N >60 Egfr 59.2 N >60 57 Laboratory test 03/19/2015 [facility] C Reactive 5.17 mg/L High < 5.00 [address] [place] [address] [phone] Erythrocyte Sed Rate 48 mm/Hr High 0-40 CBC Auto 11/22/2014 [facility] White Blood 4.2 10^3/uL Low 4.8 -10.[address] [place] [address] [phone] Red Blood Count 4.34 10^6/uL N 4.0-5.4 Hemoglobin 12.3 g/dL N 12.0-16.0 Hematocrit 37 % N 35-47 Mean Corpuscular Volume 85 fL N 80-97 Mean Corpuscular Hemoglobin 28 pg N 27-31 Mean Corpuscular HGB Conc 33 g/dL N 31-36 Red Cell Distribution Width 17 % High 10.5-15 Platelet Count 238 10^3/uL N 150-450 Mean Platelet Volume 9 um3 N 7.4-10.4 Abs Neutrophils 2.2 10^3/uL N 1.5-7.7 Abs Lymphocytes 1.3 10^3/uL N 1.0-4.8 Abs Monocytes 0.4 10^3/uL N 0-0.8 Abs Eosinophils 0.3 10^3/uL N 0-0.6 Abs Basophils 0 10^3/uL N 0-0.2 Abs Nucleated RBC 0 10^3/uL N Granulocyte % 52.0 % N 38-83 Lymphocyte % 30.3 % N 25-47 Monocyte % 8.8 % N 1-9 Eosinophil % 7.8 % High 0-6 Basophil % 1.1 % N 0-2 Nucleated Red Blood Cells % 0 N Comp Metabolic Panel 11/22/2014 [facility] Sodium 137 mmol/L N 133-[address] [place] [address] [phone] Potassium 4.3 mmol/L N 3.5-5.0 Chloride 102 mmol/L N 101-111 Co2 Carbon Dioxide 28 mmol/L N 22-32 Anion Gap 7 mmol/L N 2-11 Glucose 95 mg/dL N 70-100 Blood Urea Nitrogen 24 mg/dL N 6-24 Creatinine 1.14 mg/dL High 0.51-0.95 BUN/Creatinine Ratio 21.1 High 8-20 Calcium 9.4 mg/dL N 8.6-10.3 Total Protein 6.7 g/dL N 6.4-8.9 Albumin 4.1 g/dL N 3.2-5.2 Globulin 2.6 g/dL N 2-4 Albumin/Globulin Ratio 1.6 N 1-3 Total Bilirubin 0.40 mg/dL N 0.2-1.0 Alkaline Phosphatase 80 U/L N 34-104 Alt 16 U/L N 7-52 Ast 19 U/L N 13-39 Egfr Non- 47.4 N >60 Egfr 61.0 N >60 59 Laboratory test 11/22/2014 [facility] Erythrocyte Sed 31 mm/Hr N 0-[address] [place] [address] [phone] C Reactive Protein 3.40 mg/L N < 5.00 60 CBC Auto Diff 09/13/2014 [facility] White Blood 7.6 10^3/uL N 4.8-10.[address] [place] [address] [phone] Red Blood Count 3.97 10^6/uL Low 4.0-5.4 Hemoglobin 10.9 g/dL Low 12.0-16.0 Hematocrit 33 % Low 35-47 Mean Corpuscular Volume 82 fL N 80-97 Mean Corpuscular Hemoglobin 28 pg N 27-31 Mean Corpuscular HGB Conc 33 g/dL N 31-36 Red Cell Distribution Width 17 % High 10.5-15 Platelet Count 258 10^3/uL N 150-450 Mean Platelet Volume 9 um3 N 7.4-10.4 Abs Neutrophils 6.7 10^3/uL N 1.5-7.7 Abs Lymphocytes 0.6 10^3/uL Low 1.0-4.8 Abs Monocytes 0.3 10^3/uL N 0-0.8 Abs Eosinophils 0 10^3/uL N 0-0.6 Abs Basophils 0 10^3/uL N 0-0.2 Abs Nucleated RBC 0 10^3/uL N Granulocyte % 87.5 % High 38-83 Lymphocyte % 8.2 % Low 25-47 Monocyte % 4.0 % N 1-9 Eosinophil % 0.1 % N 0-6 Basophil % 0.2 % N 0-2 Nucleated Red Blood Cells % 0.1 N Comp Metabolic Panel 09/13/2014 [facility] Sodium 139 mmol/L N 133-[address] [place] [address] [phone] Potassium 3.9 mmol/L N 3.5-5.0 Chloride 104 mmol/L N 101-111 Co2 Carbon Dioxide 28 mmol/L N 22-32 Anion Gap 7 mmol/L N 2-11 Glucose 117 mg/dL High 70-100 Blood Urea Nitrogen 27 mg/dL High 6-24 Creatinine 1.20 mg/dL High 0.51-0.95 BUN/Creatinine Ratio 22.5 High 8-20 Calcium 9.1 mg/dL N 8.6-10.3 Total Protein 6.6 g/dL N 6.4-8.9 Albumin 3.6 g/dL N 3.2-5.2 Globulin 3.0 g/dL N 2-4 Albumin/Globulin Ratio 1.2 N 1-3 Total Bilirubin 0.30 mg/dL N 0.2-1.0 Alkaline Phosphatase 89 U/L N 34-104 Alt 21 U/L N 7-52 Ast 19 U/L N 13-39 Egfr Non- 44.7 N >60 Egfr 57.5 N >60 61 Laboratory test 09/13/2014 [facility] Erythrocyte Sed 44 mm/Hr High 0-[address] [place] [address] [phone] C Reactive Protein 2.27 mg/L N < 5.00 62 Comp Metabolic Panel 07/03/2014 [facility] Sodium 137 mmol/L N 133-[address] [place] [address] [phone] Potassium 3.9 mmol/L N 3.7-5.6 Chloride 101 mmol/L N 101-111 Co2 Carbon Dioxide 32 mmol/L N 22-32 Anion Gap 4 mmol/L N 2-11 Glucose 92 mg/dL N 70-100 Blood Urea Nitrogen 15 mg/dL N 6-24 Creatinine 0.99 mg/dL High 0.51-0.95 BUN/Creatinine Ratio 15.2 N 8-20 Calcium 8.9 mg/dL N 8.6-10.3 Total Protein 6.3 g/dL Low 6.4-8.9 Albumin 3.8 g/dL N 3.2-5.2 Globulin 2.5 g/dL N 2-4 Albumin/Globulin Ratio 1.5 N 1-3 Total Bilirubin 0.40 mg/dL N 0.2-1.0 Alkaline Phosphatase 92 U/L N 34-104 Alt 19 U/L N 7-52 Ast 21 U/L N 13-39 Egfr Non- 55.8 N >60 Egfr 71.7 N >60 63 Laboratory test 07/03/2014 [facility] C Reactive 16.91 mg/L High < 5.00 [address] [place] [address] [phone] CBC Auto Diff 07/03/2014 [facility] White Blood 4.8 N 4.8- 10.[address] Count 10^3/[place] [address] [phone] Red Blood Count 3.95 10^6/uL Low 4.0-5.4 Hemoglobin 10.9 g/dL Low 12.0-16.0 Hematocrit 33 % Low 35-47 Mean Corpuscular Volume 83 fL N 80-97 Mean Corpuscular Hemoglobin 28 pg N 27-31 Mean Corpuscular HGB Conc 33 g/dL N 31-36 Red Cell Distribution Width 16 % High 10.5-15 Platelet Count 256 10^3/uL N 150-450 Mean Platelet Volume 9 um3 N 7.4-10.4 Abs Neutrophils 2.8 10^3/uL N 1.5-7.7 Abs Lymphocytes 1.3 10^3/uL N 1.0-4.8 Abs Monocytes 0.4 10^3/uL N 0-0.8 Abs Eosinophils 0.3 10^3/uL N 0-0.6 Abs Basophils 0 10^3/uL N 0-0.2 Abs Nucleated RBC 0 10^3/uL N Granulocyte % 57.0 % N 38-83 Lymphocyte % 26.8 % N 25-47 Monocyte % 9.1 % High 1-9 Eosinophil % 6.3 % High 0-6 Basophil % 0.8 % N 0-2 Nucleated Red Blood Cells % 0.1 N Laboratory test 07/03/2014 [facility] Erythrocyte Sed 57 mm/Hr High 0-[address] [place] [address] [phone] Comp Metabolic 05/02/2014 [facility] Sodium 138 N 133-[address] mmol/[place] [address] [phone] Potassium 4.5 mmol/L N 3.7-5.6 Chloride 102 mmol/L N 101-111 Co2 Carbon Dioxide 31 mmol/L N 22-32 Anion Gap 5 mmol/L N 2-11 Glucose 86 mg/dL N 70-100 Blood Urea Nitrogen 21 mg/dL N 6-24 Creatinine 1.09 mg/dL High 0.51-0.95 BUN/Creatinine Ratio 19.3 N 8-20 Calcium 8.8 mg/dL N 8.6-10.3 Total Protein 6.3 g/dL Low 6.4-8.9 Albumin 3.8 g/dL N 3.2-5.2 Globulin 2.5 g/dL N 2-4 Albumin/Globulin Ratio 1.5 N 1-3 Total Bilirubin 0.40 mg/dL N 0.2-1.0 Alkaline Phosphatase 80 U/L N 34-104 Alt 38 U/L N 7-52 Ast 33 U/L N 13-39 Egfr Non- 50.1 N >60 Egfr 64.4 N >60 65 Laboratory test 05/02/2014 [facility] C Reactive 4.96 mg/L N < 5.00 [address] [place] [address] [phone] CBC Auto Diff 05/02/2014 [facility] White Blood 4.7 Low 4.8- 10.[address] Count 10^3/[place] [address] [phone] Red Blood Count 4.17 10^6/uL N 4.0-5.4 Hemoglobin 11.8 g/dL Low 12.0-16.0 Hematocrit 35 % N 35-47 Mean Corpuscular Volume 84 fL N 80-97 Mean Corpuscular Hemoglobin 28 pg N 27-31 Mean Corpuscular HGB Conc 34 g/dL N 31-36 Red Cell Distribution Width 16 % High 10.5-15 Platelet Count 214 10^3/uL N 150-450 Mean Platelet Volume 9 um3 N 7.4-10.4 Abs Neutrophils 2.6 10^3/uL N 1.5-7.7 Abs Lymphocytes 1.2 10^3/uL N 1.0-4.8 Abs Monocytes 0.5 10^3/uL N 0-0.8 Abs Eosinophils 0.3 10^3/uL N 0-0.6 Abs Basophils 0 10^3/uL N 0-0.2 Abs Nucleated RBC 0 10^3/uL N Granulocyte % 54.8 % N 38-83 Lymphocyte % 25.8 % N 25-47 Monocyte % 11.2 % High 1-9 Eosinophil % 7.4 % High 0-6 Basophil % 0.8 % N 0-2 Nucleated Red Blood Cells % 0.1 N Laboratory test 05/02/2014 [facility] Erythrocyte Sed 34 mm/Hr N 0-[address] [place] [address] [phone] Comp Metabolic 04/03/2014 [facility] Sodium 139 mmol/L N 133- [address] [place] [address] [phone] Potassium 3.8 mmol/L N 3.7-5.6 Chloride 104 mmol/L N 101-111 Co2 Carbon Dioxide 29 mmol/L N 22-32 Anion Gap 6 mmol/L N 2-11 Glucose 75 mg/dL N 70-100 Blood Urea Nitrogen 21 mg/dL N 6-24 Creatinine 1.06 mg/dL High 0.51-0.95 BUN/Creatinine Ratio 19.8 N 8-20 Calcium 8.7 mg/dL N 8.6-10.3 Total Protein 6.3 g/dL Low 6.4-8.9 Albumin 3.9 g/dL N 3.2-5.2 Globulin 2.4 g/dL N 2-4 Albumin/Globulin Ratio 1.6 N 1-3 Total Bilirubin 0.30 mg/dL N 0.2-1.0 Alkaline Phosphatase 91 U/L N 34-104 Alt 29 U/L N 7-52 Ast 27 U/L N 13-39 Egfr Non- 51.7 N >60 Egfr 66.5 N >60 67 Laboratory test 04/03/2014 [facility] C Reactive 5.88 mg/L High < 5.00 [address] [place] [address] [phone] CBC Auto Diff 04/03/2014 [facility] White Blood 5.1 N 4.8- 10.[address] Count 10^3/[place] [address] [phone] Red Blood Count 4.25 10^6/uL N 4.0-5.4 Hemoglobin 12.0 g/dL N 12.0-16.0 Hematocrit 36 % N 35-47 Mean Corpuscular Volume 84 fL N 80-97 Mean Corpuscular Hemoglobin 28 pg N 27-31 Mean Corpuscular HGB Conc 33 g/dL N 31-36 Red Cell Distribution Width 16 % High 10.5-15 Platelet Count 241 10^3/uL N 150-450 Mean Platelet Volume 9 um3 N 7.4-10.4 Abs Neutrophils 3.1 10^3/uL N 1.5-7.7 Abs Lymphocytes 1.2 10^3/uL N 1.0-4.8 Abs Monocytes 0.4 10^3/uL N 0-0.8 Abs Eosinophils 0.3 10^3/uL N 0-0.6 Abs Basophils 0 10^3/uL N 0-0.2 Abs Nucleated RBC 0 10^3/uL N Granulocyte % 60.4 % N 38-83 Lymphocyte % 23.8 % Low 25-47 Monocyte % 8.3 % N 1-9 Eosinophil % 6.8 % High 0-6 Basophil % 0.7 % N 0-2 Nucleated Red Blood Cells % 0 N Laboratory test 04/03/2014 [facility] Erythrocyte Sed 46 mm/Hr High 0-[address] [place] [address] [phone] CBC Auto Diff 01/30/2014 White Blood 6.1 N 4.8-10.8 Count 10^3/uL Red Blood Count 4.11 10^6/uL N 4.0-5.4 Hemoglobin 12.0 g/dL N 12.0-16.0 Hematocrit 36 % N 35-47 Mean Corpuscular Volume 86 fL N 80-97 Mean Corpuscular Hemoglobin 29 pg N 27-31 Mean Corpuscular HGB Conc 34 g/dL N 31-36 Red Cell Distribution Width 15 % N 10.5-15 Platelet Count 260 10^3/uL N 150-450 Mean Platelet Volume 9 um3 N 7.4-10.4 Abs Neutrophils 3.8 10^3/uL N 1.5-7.7 Abs Lymphocytes 1.3 10^3/uL N 1.0-4.8 Abs Monocytes 0.5 10^3/uL N 0-0.8 Abs Eosinophils 0.5 10^3/uL N 0-0.6 Abs Basophils 0 10^3/uL N 0-0.2 Abs Nucleated RBC 0 10^3/uL N Granulocyte % 61.8 % N 38-83 Lymphocyte % 21.2 % Low 25-47 Monocyte % 7.8 % N 1-9 Eosinophil % 8.7 % High 0-6 Basophil % 0.5 % N 0-2 Nucleated Red Blood Cells % 0.1 N Comp Metabolic Panel 01/30/2014 Sodium 137 mmol/L N 133-145 Potassium 3.9 mmol/L N 3.7-5.6 Chloride 101 mmol/L N 101-111 Co2 Carbon Dioxide 30 mmol/L N 22-32 Anion Gap 6 mmol/L N 2-11 Glucose 102 mg/dL High 70-100 Blood Urea Nitrogen 17 mg/dL N 6-24 Creatinine 0.99 mg/dL High 0.51-0.95 BUN/Creatinine Ratio 17.2 N 8-20 Calcium 8.4 mg/dL Low 8.6-10.3 Total Protein 6.2 g/dL Low 6.4-8.9 Albumin 3.8 g/dL N 3.2-5.2 Globulin 2.4 g/dL N 2-4 Albumin/Globulin Ratio 1.6 N 1-3 Total Bilirubin 0.40 mg/dL N 0.2-1.0 Alkaline Phosphatase 100 U/L N 34-104 Alt 24 U/L N 7-52 Ast 27 U/L N 13-39 Egfr Non- 55.9 N >60 Egfr 72.0 N >60 69 Laboratory test finding 01/30/2014 Erythrocyte Sed Rate 59 mm/Hr High 0- 40 C Reactive Protein 8.98 mg/L High < 5.00 70 Comp Metabolic Panel 11/14/2013 [facility] Sodium 139 mmol/L 133-[address] [place] [address] [phone] Potassium 3.9 mmol/L 3.5-5.0 Chloride 104 mmol/L 101-111 Co2 Carbon Dioxide 29.0 mmol/L 22-32 Anion Gap 6.0 mmol/L 2-11 Glucose 92 mg/dL 70-100 Blood Urea Nitrogen 19 mg/dL 6-24 Creatinine 1.10 mg/dL 0.50-1.40 BUN/Creatinine Ratio 17.3 8-20 Calcium 8.7 mg/dL 8.1-9.9 Total Protein 6.5 g/dL 6.2-8.1 Albumin 3.4 g/dL 3.2-5.2 Globulin 3.1 g/dL 2-4 Albumin/Globulin Ratio 1.1 1-3 Total Bilirubin 0.6 mg/dL 0.4-1.5 Alkaline Phosphatase 86 U/L 30-110 Alt 24 U/L 14-54 Ast 27 U/L 12-42 Egfr Non- 49.5 >60 Egfr 63.7 >60 71 Laboratory test 11/14/2013 [facility] C Reactive 0.7 mg/dL High Less than finding [address] Protein 0.5 [place] [address] [phone] CBC With Manual 11/14/2013 [facility] White Blood 5.6 4.8- 10.[address] Count 10^3/[place] [address] [phone] Red Blood Count 4.34 10^6/uL 4.0-5.4 Hemoglobin 11.6 g/dL Low 12.0-16.0 Hematocrit 37 % 35-47 Mean Corpuscular Volume 86 fL 80-97 Mean Corpuscular Hemoglobin 27 pg 27-31 Mean Corpuscular HGB Conc 31 g/dL 31-36 Red Cell Distribution Width 16 % High 10.5-15 Platelet Count 238 10^3/uL 150-450 Mean Platelet Volume 9 um3 7.4-10.4 Abs Neutrophils 3.6 10^3/uL 1.5-7.7 Abs Lymphocytes 1.2 10^3/uL 1.0-4.8 Abs Monocytes 0.5 10^3/uL 0-0.8 Abs Eosinophils 0.3 10^3/uL 0-0.6 Abs Basophils 0 10^3/uL 0-0.2 Abs Nucleated RBC 0 10^3/uL Neutrophil % 65 % 38-83 Lymphocytes % 23 % Low 25-47 Monocytes % 9 % 0-13 Eosinophils % 3 % 0-6 RBC Morphology Normal Normal Laboratory test 11/14/2013 [facility] Erythrocyte Sed 40 mm/Hr 0-[address] [place] [address] [phone] CBC W/Manual 08/16/2013 [facility] White Blood 5.7 4.8-10.[address] Count 10^3/[place] [address] [phone] Red Blood Count 4.23 10^6/uL 4.0-5.4 Hemoglobin 11.9 g/dL Low 12.0-16.0 Hematocrit 37 % 35-47 Mean Corpuscular Volume 87 fL 80-97 Mean Corpuscular Hemoglobin 28 pg 27-31 Mean Corpuscular HGB Conc 33 g/dL 31-36 Red Cell Distribution Width 15 % 10.5-15 Platelet Count 237 10^3/uL 150-450 Mean Platelet Volume 9 um3 7.4-10.4 Abs Neutrophils 3.6 10^3/uL 1.5-7.7 Abs Lymphocytes 1.3 10^3/uL 1.0-4.8 Abs Monocytes 0.5 10^3/uL 0-0.8 Abs Eosinophils 0.3 10^3/uL 0-0.6 Abs Basophils 0 10^3/uL 0-0.2 Abs Nucleated RBC 0 10^3/uL Neutrophil % 69 % 38-83 Lymphocytes % 19 % Low 25-47 Monocytes % 7 % 0-13 Eosinophils % 5 % 0-6 RBC Morphology Normal Normal CMP Panel 08/16/2013 [facility] Sodium 138 mmol/L 133-[address] [place] [address] [phone] Potassium 3.8 mmol/L 3.5-5.0 Chloride 103 mmol/L 101-111 Co2 Carbon Dioxide 27.0 mmol/L 22-32 Anion Gap 8.0 mmol/L 2-11 Glucose 116 mg/dL High 70-100 Blood Urea Nitrogen 16 mg/dL 6-24 Creatinine 1.10 mg/dL 0.50-1.40 BUN/Creatinine Ratio 14.5 8-20 Calcium 8.6 mg/dL 8.1-9.9 Total Protein 5.9 g/dL Low 6.2-8.1 Albumin 3.5 g/dL 3.2-5.2 Globulin 2.4 g/dL 2-4 Albumin/Globulin Ratio 1.5 1-3 Total Bilirubin 0.5 mg/dL 0.4-1.5 Alkaline Phosphatase 83 U/L 30-110 Alt 24 U/L 14-54 Ast 26 U/L 12-42 Egfr Non- 49.5 >60 Egfr 63.7 >60 72 Laboratory test 08/16/2013 [facility] C Reactive 0.7 mg/dL High Less than finding [address] Protein 0.5 [place] [address] [phone] Erythrocyte Sed Rate 9 mm/Hr 0-40 Comp Metabolic Panel 05/23/2013 [facility] Sodium 140 mmol/L 133-[address] [place] [address] [phone] Potassium 3.9 mmol/L 3.5-5.0 Chloride 105 mmol/L 101-111 Co2 Carbon Dioxide 31.0 mmol/L 22-32 Anion Gap 4.0 mmol/L 2-11 Glucose 95 mg/dL 70-100 Blood Urea Nitrogen 21 mg/dL 6-24 Creatinine 1.20 mg/dL 0.50-1.40 BUN/Creatinine Ratio 17.5 8-20 Calcium 8.9 mg/dL 8.1-9.9 Total Protein 6.2 g/dL 6.2-8.1 Albumin 3.4 g/dL 3.2-5.2 Globulin 2.8 g/dL 2-4 Albumin/Globulin Ratio 1.2 1-3 Total Bilirubin 0.6 mg/dL 0.4-1.5 Alkaline Phosphatase 72 U/L 30-110 Alt 21 U/L 14-54 Ast 25 U/L 12-42 Egfr Non- 44.8 >60 Egfr 57.6 >60 73 Laboratory test 05/23/2013 [facility] C Reactive 0.6 mg/dL High Less than finding [address] Protein 0.5 [place] [address] [phone] CBC With Manual 05/23/2013 [facility] White Blood 5.0 4.8- 10.[address] Count 10^3/[place] [address] [phone] Red Blood Count 4.38 10^6/uL 4.0-5.4 Hemoglobin 12.9 g/dL 12.0-16.0 Hematocrit 38 % 35-47 Mean Corpuscular Volume 87 fL 80-97 Mean Corpuscular Hemoglobin 30 pg 27-31 Mean Corpuscular HGB Conc 34 g/dL 31-36 Red Cell Distribution Width 16 % High 10.5-15 Platelet Count 239 10^3/uL 150-450 Mean Platelet Volume 9 um3 7.4-10.4 Abs Neutrophils 3.2 10^3/uL 1.5-7.7 Abs Lymphocytes 1.0 10^3/uL 1.0-4.8 Abs Monocytes 0.4 10^3/uL 0-0.8 Abs Eosinophils 0.4 10^3/uL 0-0.6 Abs Basophils 0 10^3/uL 0-0.2 Abs Nucleated RBC 0.01 10^3/uL Neutrophil % 60 % 38-83 Band % 4 % 0-8 Lymphocytes % 23 % Low 25-47 Monocytes % 7 % 0-13 Eosinophils % 5 % 0-6 Reactive Lymph % 1 % 0-6 RBC Morphology Normal Normal Laboratory test 05/23/2013 [facility] Erythrocyte Sed 32 mm/Hr 0-[address] [place] [address] [phone] CBC With Manual 02/28/2013 [facility] White Blood 5.6 4.8- 10.[address] Count 10^3/[place] [address] [phone] Red Blood Count 4.32 10^6/uL 4.0-5.4 Hemoglobin 12.5 g/dL 12.0-16.0 Hematocrit 37 % 35-47 Mean Corpuscular Volume 86 fL 80-97 Mean Corpuscular Hemoglobin 29 pg 27-31 Mean Corpuscular HGB Conc 34 g/dL 31-36 Red Cell Distribution Width 16 % High 10.5-15 Platelet Count 241 10^3/uL 150-450 Mean Platelet Volume 9 um3 7.4-10.4 Abs Neutrophils 3.4 10^3/uL 1.5-7.7 Abs Lymphocytes 1.3 10^3/uL 1.0-4.8 Abs Monocytes 0.5 10^3/uL 0-0.8 Abs Eosinophils 0.3 10^3/uL 0-0.6 Abs Basophils 0 10^3/uL 0-0.2 Abs Nucleated RBC 0 10^3/uL Neutrophil % 67 % 38-83 Band % 2 % 0-8 Lymphocytes % 21 % Low 25-47 Monocytes % 8 % 0-13 Eosinophils % 1 % 0-6 Basophil % 1 % 0-2 RBC Morphology Normal Normal Comp Metabolic Panel 02/28/2013 [facility] Sodium 137 mmol/L 133-[address] [place] [address] [phone] Potassium 3.8 mmol/L 3.5-5.0 Chloride 100 mmol/L Low 101-111 Co2 Carbon Dioxide 29.0 mmol/L 22-32 Anion Gap 8.0 mmol/L 2-11 Glucose 96 mg/dL 70-100 Blood Urea Nitrogen 19 mg/dL 6-24 Creatinine 1.20 mg/dL 0.50-1.40 BUN/Creatinine Ratio 15.8 8-20 Calcium 9.1 mg/dL 8.1-9.9 Total Protein 6.5 g/dL 6.2-8.1 Albumin 3.7 g/dL 3.2-5.2 Globulin 2.8 g/dL 2-4 Albumin/Globulin Ratio 1.3 1-3 Total Bilirubin 0.6 mg/dL 0.4-1.5 Alkaline Phosphatase 90 U/L 30-110 Alt 23 U/L 14-54 Ast 26 U/L 12-42 Egfr Non- 44.9 >60 Egfr 57.8 >60 74 Laboratory test 02/28/2013 [facility] C Reactive 0.6 mg/dL High Less than finding [address] Protein 0.5 [place] [address] [phone] Erythrocyte Sed Rate 40 mm/Hr 0-40 Comp Metabolic Panel 11/29/2012 [facility] Sodium 142 mmol/L 133-[address] [place] [address] [phone] Potassium 4.3 mmol/L 3.5-5.0 Chloride 105 mmol/L 101-111 Co2 Carbon Dioxide 31.0 mmol/L 22-32 Anion Gap 6.0 mmol/L 2-11 Glucose 77 mg/dL 70-100 Blood Urea Nitrogen 14 mg/dL 6-24 Creatinine 1.50 mg/dL High 0.50-1.40 BUN/Creatinine Ratio 9.3 8-20 Calcium 8.5 mg/dL 8.1-9.9 Total Protein 5.9 g/dL Low 6.2-8.1 Albumin 3.6 g/dL 3.2-5.2 Globulin 2.3 g/dL 2-4 Albumin/Globulin Ratio 1.6 1-3 Total Bilirubin 0.5 mg/dL 0.4-1.5 Alkaline Phosphatase 75 U/L 30-110 Alt 23 U/L 14-54 Ast 25 U/L 12-42 Egfr Non- 34.7 >60 Egfr 44.7 >60 75 Laboratory test 11/29/2012 [facility] C Reactive 0.7 mg/dL High Less than finding [address] Protein 0.5 [place] [address] [phone] CBC With Manual 11/29/2012 [facility] White Blood 5.8 4.8- 10.[address] Count 10^3/[place] [address] [phone] Red Blood Count 4.29 10^6/uL 4.0-5.4 Hemoglobin 12.3 g/dL 12.0-16.0 Hematocrit 37 % 35-47 Mean Corpuscular Volume 87 fL 80-97 Mean Corpuscular Hemoglobin 29 pg 27-31 Mean Corpuscular HGB Conc 33 g/dL 31-36 Red Cell Distribution Width 16 % High 10.5-15 Platelet Count 228 10^3/uL 150-450 Mean Platelet Volume 9 um3 7.4-10.4 Abs Neutrophils 3.7 10^3/uL 1.5-7.7 Abs Lymphocytes 1.3 10^3/uL 1.0-4.8 Abs Monocytes 0.5 10^3/uL 0-0.8 Abs Eosinophils 0.3 10^3/uL 0-0.6 Abs Basophils 0 10^3/uL 0-0.2 Abs Nucleated RBC 0.01 10^3/uL Neutrophil % 55 % 38-83 Band % 3 % 0-8 Lymphocytes % 29 % 25-47 Monocytes % 6 % 0-13 Eosinophils % 5 % 0-6 Basophil % 2 % 0-2 Polychromasia 1+ Elliptocyte 1+ Laboratory test 11/29/2012 [facility] Erythrocyte Sed 34 mm/Hr 0-[address] [place] [address] [phone] Comp Metabolic 09/05/2012 [facility] Sodium 136 mmol/L 133- [address] [place] [address] [phone] Potassium 3.9 mmol/L 3.5-5.0 Chloride 103 mmol/L 101-111 Co2 Carbon Dioxide 26.0 mmol/L 22-32 Anion Gap 7.0 mmol/L 2-11 Glucose 99 mg/dL 70-100 Blood Urea Nitrogen 13 mg/dL 6-24 Creatinine 1.10 mg/dL 0.50-1.40 BUN/Creatinine Ratio 11.8 8-20 Calcium 8.5 mg/dL 8.1-9.9 Total Protein 5.6 GM/DL Low 6.2-8.1 Albumin 3.6 GM/DL 3.2-5.2 Globulin 2.0 GM/DL 2-4 Albumin/Globulin Ratio 1.8 1-3 Total Bilirubin 0.7 mg/dL 0.1-1.0 76 Alkaline Phosphatase 73 U/L 30-110 Alt 24 U/L 14-54 Ast 28 U/L 12-42 Egfr Non- 49.7 >60 Egfr 63.9 >60 77 Laboratory test 09/05/2012 [facility] C Reactive 0.7 mg/dL High Less Than finding [address] Protein 0.5 [place] [address] [phone] CBC With Manual 09/05/2012 [facility] White Blood 4.6 Low 4.8- 10.[address] Count 10^3/[place] [address] [phone] Red Blood Count 4.37 10^6/uL 4.0-5.4 Hemoglobin 12.7 g/dL 12.0-16.0 Hematocrit 38 % 35-47 Mean Corpuscular Volume 87 fL 80-97 Mean Corpuscular Hemoglobin 29 pg 27-31 Mean Corpuscular HGB Conc 34 g/dL 31-36 Red Cell Distribution Width 15 % 10.5-15 Platelet Count 237 10^3/uL 150-450 Mean Platelet Volume 9 um3 7.4-10.4 Abs Neutrophils 2.9 10^3/uL 1.5-7.7 Abs Lymphocytes 1.0 10^3/uL 1.0-4.8 Abs Monocytes 0.4 10^3/uL 0-0.8 Abs Eosinophils 0.3 10^3/uL 0-0.6 Abs Basophils 0 10^3/uL 0-0.2 Abs Nucleated RBC 0 10^3/uL Neutrophil % 69.0 % 38-83 Band % 2.0 % 0-8 Lymphocytes % 20.0 % Low 25-47 Monocytes % 4.0 % 0-13 Eosinophils % 4.0 % 0-6 Basophil % 1.0 % 0-2 Reactive Lymph % 0 % 0-6 Metamyelocytes % 0 % 0-2 Myelocytes % 0 % 0-1 Promyelocytes % 0 % Blast % 0 % RBC Morphology Normal Normal Laboratory test 09/05/2012 [facility] Erythrocyte Sed 38 MM/HR 0-[address] [place] [address] [phone] Laboratory test 05/31/2012 [facility] Thyroxine Free 0.78 ng/dL 0.61-1.24 finding [address] [place] [address] [phone] TSH 1.17 MIU/ML 0.34-5.60 Liver Function 05/31/2012 [facility] Total Protein 6.0 GM/DL Low 6.2-8.1 Panel [address] [place] [address] [phone] Albumin 3.6 GM/DL 3.2-5.2 Globulin 2.4 GM/DL 2-4 Albumin/Globulin Ratio 1.5 1-3 Bilirubin Total 0.8 mg/dL 0.4-1.5 78 Bilirubin Direct 0.1 mg/dL 0.1-0.5 Indirect Bilirubin 0.7 mg/dL 0.3-1.0 79 Alkaline Phosphatase 93 U/L 30-110 Alt (SGPT) 22 U/L 14-54 Ast (Sgot) 26 U/L 12-42 Basic Metabolic Panel 05/31/2012 [facility] Sodium 136 mmol/L 135-145 [address] [place] [address] [phone] Potassium 4.0 mmol/L 3.5-5.0 Chloride 102 mmol/L 101-111 Co2 (Carbon Dioxide) 27.0 mmol/L 22-32 Anion Gap 7.0 mmol/L 2-11 80 Glucose 104 mg/dL High 70-100 BUN 17 mg/dL 6-24 Creatinine 1.2 mg/dL 0.50-1.40 One Over Creatinine 0.83 BUN/Creatinine Ratio 14.2 8-20 Calcium 8.7 mg/dL 8.1-9.9 eGFR Non- 44.9 > 60 eGFR 57.8 > 60 81 Laboratory test 05/31/2012 [facility] C Reactive 0.8 mg/dL High Less Than finding [address] Protein 0.5 [place] [address] [phone] Erythrocyte Sed Rate 33 MM/HR 0-40 CBC With Manual 05/31/2012 [facility] White Blood 5.2 CUMM 4.8-10.[address] [place] [address] [phone] Red Cell Count 4.48 CUMM 4.2-5.4 Hemoglobin 13.1 g/dL 12.0-16.0 Hematocrit 38 % 35-47 Mean Corpuscular Volume 85 um3 79-97 Mean Corpuscular Hemoglob 29 pg 27-31 Mean Corpuscular HGB Cone 35 g/dL 32-36 Redcell Distribution WDTH 15 % 10.5-15 Platelet Count 231 CUMM 150-450 Mean Platelet Volume 9.3 um3 7.4-10.4 Absolute Neutrophil Count 3.1 1.5-7.7 Polysegmented Neutrophil 72 % 38-83 Band Neutrophil 3 % 0-8 Lymphocyte 20 % Low 25-47 Monocyte 2 % 0-13 Eosinophil 3 % 0-6 RBC Morphology NORMAL Laboratory test 02/18/2012 [facility] Erythrocyte Sed 42 MM/HR High 0-[address] [place] [address] [phone] CBC With Manual 02/18/2012 [facility] White Blood 6.4 CUMM 4.8-10.[address] [place] [address] [phone] Red Cell Count 4.49 CUMM 4.2-5.4 Hemoglobin 13.0 g/dL 12.0-16.0 Hematocrit 38 % 35-47 Mean Corpuscular Volume 85 um3 79-97 Mean Corpuscular Hemoglob 29 pg 27-31 Mean Corpuscular HGB Cone 34 g/dL 32-36 Redcell Distribution WDTH 16 % High 10.5-15 Platelet Count 269 CUMM 150-450 Mean Platelet Volume 9.1 um3 7.4-10.4 Polysegmented Neutrophil 68 % 38-83 Lymphocyte 19 % Low 25-47 Monocyte 5 % 0-13 Eosinophil 8 % High 0-6 Absolute Neutrophil Count 4.30 Anisocytosis SLIGHT Laboratory test 02/18/2012 [facility] C Reactive 0.7 mg/dL High Less Than finding [address] Protein 0.5 [place] [address] [phone] Liver Function 02/18/2012 [facility] Total Protein 6.4 GM/DL 6.2-8.[address] [place] [address] [phone] Albumin 3.9 GM/DL 3.2-5.2 Globulin 2.5 GM/DL 2-4 Albumin/Globulin Ratio 1.6 1-3 Bilirubin Total 0.7 mg/dL 0.4-1.5 82 Bilirubin Direct 0.1 mg/dL 0.1-0.5 Indirect Bilirubin 0.6 mg/dL 0.3-1.0 83 Alkaline Phosphatase 86 U/L 30-110 Alt (SGPT) 22 U/L 14-54 Ast (Sgot) 27 U/L 12-42 Basic Metabolic Panel 02/18/2012 [facility] Sodium 136 mmol/L 135-[address] [place] [address] [phone] Potassium 4.0 mmol/L 3.5-5.0 Chloride 97 mmol/L Low 101-111 Co2 (Carbon Dioxide) 32.0 mmol/L 22-32 Anion Gap 7.0 mmol/L 2-11 84 Glucose 104 mg/dL High 70-100 BUN 13 mg/dL 6-24 Creatinine 1.1 mg/dL 0.50-1.40 One Over Creatinine 0.90 BUN/Creatinine Ratio 11.8 8-20 Calcium 8.9 mg/dL 8.1-9.9 eGFR Non- 49.8 > 60 eGFR 64.1 > 60 85 1 anemia and CKD stable 2 Because ethnic data is not always readily available, this report includes an eGFR for both -Americans and non- Americans. The National Kidney Disease Education Program (NKDEP) does not endorse the use of the MDRD equation for patients that are not between the ages of 18 and 70, are , have extremes of body size, muscle mass, or nutritional status, or are non- or non-. According to the National Kidney Foundation, irrespective of diagnosis, the stage of the disease is based on the level of kidney function: Stage Description GFR(mL/min/1.73 m(2)) 1 Kidney damage with normal or decreased GFR 90 2 Kidney damage with mild decrease in GFR 60-89 3 Moderate decrease in GFR 30-59 4 Severe decrease in GFR 15-29 5 Kidney failure <15 (or dialysis) 3 Because ethnic data is not always readily available, this report includes an eGFR for both -Americans and non- Americans. The National Kidney Disease Education Program (NKDEP) does not endorse the use of the MDRD equation for patients that are not between the ages of 18 and 70, are , have extremes of body size, muscle mass, or nutritional status, or are non- or non-. According to the National Kidney Foundation, irrespective of diagnosis, the stage of the disease is based on the level of kidney function: Stage Description GFR(mL/min/1.73 m(2)) 1 Kidney damage with normal or decreased GFR 90 2 Kidney damage with mild decrease in GFR 60-89 3 Moderate decrease in GFR 30-59 4 Severe decrease in GFR 15-29 5 Kidney failure <15 (or dialysis) 4 ORDERED 03/21/18 ENTERED 03/29/18 EXPIRES 09/20/18 5 ORDERED 03/21/18 ENTERED 03/29/18 EXPIRES 09/20/18 6 Because ethnic data is not always readily available, this report includes an eGFR for both -Americans and non- Americans. The National Kidney Disease Education Program (NKDEP) does not endorse the use of the MDRD equation for patients that are not between the ages of 18 and 70, are , have extremes of body size, muscle mass, or nutritional status, or are non- or non-. According to the National Kidney Foundation, irrespective of diagnosis, the stage of the disease is based on the level of kidney function: Stage Description GFR(mL/min/1.73 m(2)) 1 Kidney damage with normal or decreased GFR 90 2 Kidney damage with mild decrease in GFR 60-89 3 Moderate decrease in GFR 30-59 4 Severe decrease in GFR 15-29 5 Kidney failure <15 (or dialysis) 7 see [facility] notes 8 [facility] Severe Sepsis and Septic Shock Management Bundle Measure requires all lactic acids initially measuring >2.0 mmol/L be repeated. 9 Please note: The following may produce a false positive D Dimer test: - Rheumatoid factor greater than 60 IU/ml - Plasma hemoglobin greater than 0.05 gm/dl - Bilirubin greater than 50 mg/dl - Lipids greater than 1000 mg/dl - FDP greater than 20 ug/ml 10 Because ethnic data is not always readily available, this report includes an eGFR for both -Americans and non- Americans. The National Kidney Disease Education Program (NKDEP) does not endorse the use of the MDRD equation for patients that are not between the ages of 18 and 70, are , have extremes of body size, muscle mass, or nutritional status, or are non- or non-. According to the National Kidney Foundation, irrespective of diagnosis, the stage of the disease is based on the level of kidney function: Stage Description GFR(mL/min/1.73 m(2)) 1 Kidney damage with normal or decreased GFR 90 2 Kidney damage with mild decrease in GFR 60-89 3 Moderate decrease in GFR 30-59 4 Severe decrease in GFR 15-29 5 Kidney failure <15 (or dialysis) 11 City Marshal: [id number] 12 SEE RESULT BELOW Name: LUCAS DUPREE : [address]: Ifeanyi [facility] Acct: [id number] Unit: [id number] AGE: 72 Location: ED Re02/04/18 SEX: F Status: REG ER SPEC: [id number] ANITA: 02/04/18-[address] [facility] [address]: Jyoti VEGAS REQ: [id number] RECD: 02/04/18 STATUS: YOSHI MONTOYA DR: [facility] Ney Torres IT PROGRAMMER _ SOURCE: THROAT SPDESC: ORDERED: Strep A Request Procedure Result Reported Site Rapid Strep A Request Final 02/04/18- 155 ML Specimen received for Rapid Strep A Molecular testing * ML - Main Lab . END OF REPORT DEPARTMENT OF PATHOLOGY, [address], [place], [place] [address] Aelx Sanchez M.D. Director [facility] # [id number] STANDING ORDER ORDERED 09/06/17 ENTERED 09/07/17 EXPIRES 03/06/18 14 Because ethnic data is not always readily available, this report includes an eGFR for both -Americans and non- Americans. The National Kidney Disease Education Program (NKDEP) does not endorse the use of the MDRD equation for patients that are not between the ages of 18 and 70, are , have extremes of body size, muscle mass, or nutritional status, or are non- or non-. According to the National Kidney Foundation, irrespective of diagnosis, the stage of the disease is based on the level of kidney function: Stage Description GFR(mL/min/1.73 m(2)) 1 Kidney damage with normal or decreased GFR 90 2 Kidney damage with mild decrease in GFR 60-89 3 Moderate decrease in GFR 30-59 4 Severe decrease in GFR 15-29 5 Kidney failure <15 (or dialysis) 15 Acute inflammation: >10.00 16 STANDING ORDER ORDERED 09/06/17 ENTERED 09/07/17 EXPIRES 03/06/18 17 Because ethnic data is not always readily available, this report includes an eGFR for both -Americans and non- Americans. The National Kidney Disease Education Program (NKDEP) does not endorse the use of the MDRD equation for patients that are not between the ages of 18 and 70, are , have extremes of body size, muscle mass, or nutritional status, or are non- or non-. According to the National Kidney Foundation, irrespective of diagnosis, the stage of the disease is based on the level of kidney function: Stage Description GFR(mL/min/1.73 m(2)) 1 Kidney damage with normal or decreased GFR 90 2 Kidney damage with mild decrease in GFR 60-89 3 Moderate decrease in GFR 30-59 4 Severe decrease in GFR 15-29 5 Kidney failure <15 (or dialysis) 18 Acute inflammation: >10.00 19 Because ethnic data is not always readily available, this report includes an eGFR for both -Americans and non- Americans. The National Kidney Disease Education Program (NKDEP) does not endorse the use of the MDRD equation for patients that are not between the ages of 18 and 70, are , have extremes of body size, muscle mass, or nutritional status, or are non- or non-. According to the National Kidney Foundation, irrespective of diagnosis, the stage of the disease is based on the level of kidney function: Stage Description GFR(mL/min/1.73 m(2)) 1 Kidney damage with normal or decreased GFR 90 2 Kidney damage with mild decrease in GFR 60-89 3 Moderate decrease in GFR 30-59 4 Severe decrease in GFR 15-29 5 Kidney failure <15 (or dialysis) 20 Acute inflammation: >10.00 21 standing order 22 Because ethnic data is not always readily available, this report includes an eGFR for both -Americans and non- Americans. The National Kidney Disease Education Program (NKDEP) does not endorse the use of the MDRD equation for patients that are not between the ages of 18 and 70, are , have extremes of body size, muscle mass, or nutritional status, or are non- or non-. According to the National Kidney Foundation, irrespective of diagnosis, the stage of the disease is based on the level of kidney function: Stage Description GFR(mL/min/1.73 m(2)) 1 Kidney damage with normal or decreased GFR 90 2 Kidney damage with mild decrease in GFR 60-89 3 Moderate decrease in GFR 30-59 4 Severe decrease in GFR 15-29 5 Kidney failure <15 (or dialysis) 23 Acute inflammation: >10.00 24 standing order 25 s/o entered on 11-13-16 expires on 05/13/17 26 Because ethnic data is not always readily available, this report includes an eGFR for both -Americans and non- Americans. The National Kidney Disease Education Program (NKDEP) does not endorse the use of the MDRD equation for patients that are not between the ages of 18 and 70, are , have extremes of body size, muscle mass, or nutritional status, or are non- or non-. According to the National Kidney Foundation, irrespective of diagnosis, the stage of the disease is based on the level of kidney function: Stage Description GFR(mL/min/1.73 m(2)) 1 Kidney damage with normal or decreased GFR 90 2 Kidney damage with mild decrease in GFR 60-89 3 Moderate decrease in GFR 30-59 4 Severe decrease in GFR 15-29 5 Kidney failure <15 (or dialysis) 27 Acute inflammation: >10.00 28 s/o entered on 11-13-16 expires on 05/13/17 29 standing order 30 Because ethnic data is not always readily available, this report includes an eGFR for both -Americans and non- Americans. The National Kidney Disease Education Program (NKDEP) does not endorse the use of the MDRD equation for patients that are not between the ages of 18 and 70, are , have extremes of body size, muscle mass, or nutritional status, or are non- or non-. According to the National Kidney Foundation, irrespective of diagnosis, the stage of the disease is based on the level of kidney function: Stage Description GFR(mL/min/1.73 m(2)) 1 Kidney damage with normal or decreased GFR 90 2 Kidney damage with mild decrease in GFR 60-89 3 Moderate decrease in GFR 30-59 4 Severe decrease in GFR 15-29 5 Kidney failure <15 (or dialysis) 31 Acute inflammation: >10.00 32 standing order 33 ABSCESS FLUID 34 SEE RESULT BELOW Name: LUCAS DUPREE : [address]: Aaron Berumen MD Acct: [id number] Unit: [id number] AGE: 71 Location: [facility] Re10/14/16 SEX: F Status: REG REF SPEC: [id number] ANITA: 10/14/16-[address] [facility] [address]: Aaron Berumen MD REQ: [id number] RECD: 10/14/16 STATUS: COMP _ SOURCE: MISC FLUID SPDESC:LEFT LEG ORDERED: BF Cult/GS COMMENTS: ABSCESS FLUID Procedure Result Reported Site Body Fluid Gram Stain Final 10/15/16- 0754 ML 4+ Neutrophils 4+ Gram Positive Cocci CRYSTALS OBSERVED Body Fluid Culture Final 10/18/16- 09 ML Organism 1 STAPHYLOCOCCUS AUREUS Quantity 1+ 1. STAPHYLOCOCCUS AUREUS M.I.C. RX --------- ------ Penicillin >=0.5 R Clindamycin <=0.25 S Erythromycin <=0.25 S Gentamicin <=0.5 S Linezolid 2 S Nitrofurantoin <=16 S Oxacillin 0.5 S * Quinupristin/Dalfopristin <=0.25 S Rifampin <=0.5 S Tetracycline <=1 S Doxycycline - Deduced S * Minocycline - Deduced S Trimethoprim/Sulfamethoxazole >=320 R CONTINUED ON NEXT PAGE * ML=Testing performed at Main Lab DEPARTMENT OF PATHOLOGY, [address], [place], [place] [address] Alex Sanchez M.D. Director [facility] # [id number] Patient: LUCAS DUPREE [id number] (Continued) Specimen: [id number] Collected: 10/14/16 Received: 10/14/16 (Continued) Procedure Result Reported Site Body Fluid Culture Final (continued) 10/18/16- 902 1. STAPHYLOCOCCUS AUREUS (continued) M.I.C. RX --------- ------ Vancomycin 1 S Imipenem-Deduced S * Ampicillin/Sulbactam-Deduced S Cefazolin-Deduced S * These antibiotics are not available in the [facility] Formulary Contact the Microbiology Department for any additional antibiotic reporting. * ML - MAIN LAB ([facility]1) . END OF REPORT * ML=Testing performed at Main Lab DEPARTMENT OF PATHOLOGY, [address] [place] [address] Alex Sanchez M.D. Director [facility] # [id number] 35 s/o entered 03/25/16 expires 09/23/16 36 Because ethnic data is not always readily available, this report includes an eGFR for both -Americans and non- Americans. The National Kidney Disease Education Program (NKDEP) does not endorse the use of the MDRD equation for patients that are not between the ages of 18 and 70, are , have extremes of body size, muscle mass, or nutritional status, or are non- or non-. According to the National Kidney Foundation, irrespective of diagnosis, the stage of the disease is based on the level of kidney function: Stage Description GFR(mL/min/1.73 m(2)) 1 Kidney damage with normal or decreased GFR 90 2 Kidney damage with mild decrease in GFR 60-89 3 Moderate decrease in GFR 30-59 4 Severe decrease in GFR 15-29 5 Kidney failure <15 (or dialysis) 37 Acute inflammation: >10.00 38 s/o entered 03/25/16 expires 09/23/16 39 please do this with next standing order 40 please do this with next standing order 41 s/o entered 03/25/16 expires 09/23/16 42 Because ethnic data is not always readily available, this report includes an eGFR for both -Americans and non- Americans. The National Kidney Disease Education Program (NKDEP) does not endorse the use of the MDRD equation for patients that are not between the ages of 18 and 70, are , have extremes of body size, muscle mass, or nutritional status, or are non- or non-. According to the National Kidney Foundation, irrespective of diagnosis, the stage of the disease is based on the level of kidney function: Stage Description GFR(mL/min/1.73 m(2)) 1 Kidney damage with normal or decreased GFR 90 2 Kidney damage with mild decrease in GFR 60-89 3 Moderate decrease in GFR 30-59 4 Severe decrease in GFR 15-29 5 Kidney failure <15 (or dialysis) 43 Acute inflammation: >10.00 44 s/o entered 03/25/16 expires 09/23/16 45 Because ethnic data is not always readily available, this report includes an eGFR for both -Americans and non- Americans. The National Kidney Disease Education Program (NKDEP) does not endorse the use of the MDRD equation for patients that are not between the ages of 18 and 70, are , have extremes of body size, muscle mass, or nutritional status, or are non- or non-. According to the National Kidney Foundation, irrespective of diagnosis, the stage of the disease is based on the level of kidney function: Stage Description GFR(mL/min/1.73 m(2)) 1 Kidney damage with normal or decreased GFR 90 2 Kidney damage with mild decrease in GFR 60-89 3 Moderate decrease in GFR 30-59 4 Severe decrease in GFR 15-29 5 Kidney failure <15 (or dialysis) 46 Acute inflammation: >10.00 47 Because ethnic data is not always readily available, this report includes an eGFR for both -Americans and non- Americans. The National Kidney Disease Education Program (NKDEP) does not endorse the use of the MDRD equation for patients that are not between the ages of 18 and 70, are , have extremes of body size, muscle mass, or nutritional status, or are non- or non-. According to the National Kidney Foundation, irrespective of diagnosis, the stage of the disease is based on the level of kidney function: Stage Description GFR(mL/min/1.73 m(2)) 1 Kidney damage with normal or decreased GFR 90 2 Kidney damage with mild decrease in GFR 60-89 3 Moderate decrease in GFR 30-59 4 Severe decrease in GFR 15-29 5 Kidney failure <15 (or dialysis) 48 Acute inflammation: >10.00 49 Because ethnic data is not always readily available, this report includes an eGFR for both -Americans and non- Americans. The National Kidney Disease Education Program (NKDEP) does not endorse the use of the MDRD equation for patients that are not between the ages of 18 and 70, are , have extremes of body size, muscle mass, or nutritional status, or are non- or non-. According to the National Kidney Foundation, irrespective of diagnosis, the stage of the disease is based on the level of kidney function: Stage Description GFR(mL/min/1.73 m(2)) 1 Kidney damage with normal or decreased GFR 90 2 Kidney damage with mild decrease in GFR 60-89 3 Moderate decrease in GFR 30-59 4 Severe decrease in GFR 15-29 5 Kidney failure <15 (or dialysis) 50 Acute inflammation: >10.00 51 Because ethnic data is not always readily available, this report includes an eGFR for both -Americans and non- Americans. The National Kidney Disease Education Program (NKDEP) does not endorse the use of the MDRD equation for patients that are not between the ages of 18 and 70, are , have extremes of body size, muscle mass, or nutritional status, or are non- or non-. According to the National Kidney Foundation, irrespective of diagnosis, the stage of the disease is based on the level of kidney function: Stage Description GFR(mL/min/1.73 m(2)) 1 Kidney damage with normal or decreased GFR 90 2 Kidney damage with mild decrease in GFR 60-89 3 Moderate decrease in GFR 30-59 4 Severe decrease in GFR 15-29 5 Kidney failure <15 (or dialysis) 52 Standing orders q6 weeks or as directed 53 Acute inflammation: >10.00 54 Because ethnic data is not always readily available, this report includes an eGFR for both -Americans and non- Americans. The National Kidney Disease Education Program (NKDEP) does not endorse the use of the MDRD equation for patients that are not between the ages of 18 and 70, are , have extremes of body size, muscle mass, or nutritional status, or are non- or non-. According to the National Kidney Foundation, irrespective of diagnosis, the stage of the disease is based on the level of kidney function: Stage Description GFR(mL/min/1.73 m(2)) 1 Kidney damage with normal or decreased GFR 90 2 Kidney damage with mild decrease in GFR 60-89 3 Moderate decrease in GFR 30-59 4 Severe decrease in GFR 15-29 5 Kidney failure <15 (or dialysis) 55 S/O EXP 09/18/15 56 Acute inflammation: >10.00 57 Because ethnic data is not always readily available, this report includes an eGFR for both -Americans and non- Americans. The National Kidney Disease Education Program (NKDEP) does not endorse the use of the MDRD equation for patients that are not between the ages of 18 and 70, are , have extremes of body size, muscle mass, or nutritional status, or are non- or non-. According to the National Kidney Foundation, irrespective of diagnosis, the stage of the disease is based on the level of kidney function: Stage Description GFR(mL/min/1.73 m(2)) 1 Kidney damage with normal or decreased GFR 90 2 Kidney damage with mild decrease in GFR 60-89 3 Moderate decrease in GFR 30-59 4 Severe decrease in GFR 15-29 5 Kidney failure <15 (or dialysis) 58 Acute inflammation: >10.00 59 Because ethnic data is not always readily available, this report includes an eGFR for both -Americans and non- Americans. The National Kidney Disease Education Program (NKDEP) does not endorse the use of the MDRD equation for patients that are not between the ages of 18 and 70, are , have extremes of body size, muscle mass, or nutritional status, or are non- or non-. According to the National Kidney Foundation, irrespective of diagnosis, the stage of the disease is based on the level of kidney function: Stage Description GFR(mL/min/1.73 m(2)) 1 Kidney damage with normal or decreased GFR 90 2 Kidney damage with mild decrease in GFR 60-89 3 Moderate decrease in GFR 30-59 4 Severe decrease in GFR 15-29 5 Kidney failure <15 (or dialysis) 60 Acute inflammation: >10.00 61 Because ethnic data is not always readily available, this report includes an eGFR for both -Americans and non- Americans. The National Kidney Disease Education Program (NKDEP) does not endorse the use of the MDRD equation for patients that are not between the ages of 18 and 70, are , have extremes of body size, muscle mass, or nutritional status, or are non- or non-. According to the National Kidney Foundation, irrespective of diagnosis, the stage of the disease is based on the level of kidney function: Stage Description GFR(mL/min/1.73 m(2)) 1 Kidney damage with normal or decreased GFR 90 2 Kidney damage with mild decrease in GFR 60-89 3 Moderate decrease in GFR 30-59 4 Severe decrease in GFR 15-29 5 Kidney failure <15 (or dialysis) 62 Acute inflammation: >10.00 63 Because ethnic data is not always readily available, this report includes an eGFR for both -Americans and non- Americans. The National Kidney Disease Education Program (NKDEP) does not endorse the use of the MDRD equation for patients that are not between the ages of 18 and 70, are , have extremes of body size, muscle mass, or nutritional status, or are non- or non-. According to the National Kidney Foundation, irrespective of diagnosis, the stage of the disease is based on the level of kidney function: Stage Description GFR(mL/min/1.73 m(2)) 1 Kidney damage with normal or decreased GFR 90 2 Kidney damage with mild decrease in GFR 60-89 3 Moderate decrease in GFR 30-59 4 Severe decrease in GFR 15-29 5 Kidney failure <15 (or dialysis) 64 Acute inflammation: >10.00 65 Because ethnic data is not always readily available, this report includes an eGFR for both -Americans and non- Americans. The National Kidney Disease Education Program (NKDEP) does not endorse the use of the MDRD equation for patients that are not between the ages of 18 and 70, are , have extremes of body size, muscle mass, or nutritional status, or are non- or non-. According to the National Kidney Foundation, irrespective of diagnosis, the stage of the disease is based on the level of kidney function: Stage Description GFR(mL/min/1.73 m(2)) 1 Kidney damage with normal or decreased GFR 90 2 Kidney damage with mild decrease in GFR 60-89 3 Moderate decrease in GFR 30-59 4 Severe decrease in GFR 15-29 5 Kidney failure <15 (or dialysis) 66 Acute inflammation: >10.00 67 Because ethnic data is not always readily available, this report includes an eGFR for both -Americans and non- Americans. The National Kidney Disease Education Program (NKDEP) does not endorse the use of the MDRD equation for patients that are not between the ages of 18 and 70, are , have extremes of body size, muscle mass, or nutritional status, or are non- or non-. According to the National Kidney Foundation, irrespective of diagnosis, the stage of the disease is based on the level of kidney function: Stage Description GFR(mL/min/1.73 m(2)) 1 Kidney damage with normal or decreased GFR 90 2 Kidney damage with mild decrease in GFR 60-89 3 Moderate decrease in GFR 30-59 4 Severe decrease in GFR 15-29 5 Kidney failure <15 (or dialysis) 68 Acute inflammation: >10.00 69 Because ethnic data is not always readily available, this report includes an eGFR for both -Americans and non- Americans. The National Kidney Disease Education Program (NKDEP) does not endorse the use of the MDRD equation for patients that are not between the ages of 18 and 70, are , have extremes of body size, muscle mass, or nutritional status, or are non- or non-. According to the National Kidney Foundation, irrespective of diagnosis, the stage of the disease is based on the level of kidney function: Stage Description GFR(mL/min/1.73 m(2)) 1 Kidney damage with normal or decreased GFR 90 2 Kidney damage with mild decrease in GFR 60-89 3 Moderate decrease in GFR 30-59 4 Severe decrease in GFR 15-29 5 Kidney failure <15 (or dialysis) 70 Acute inflammation: >10.00 71 Because ethnic data is not always readily available, this report includes an eGFR for both -Americans and non- Americans. The National Kidney Disease Education Program (NKDEP) does not endorse the use of the MDRD equation for patients that are not between the ages of 18 and 70, are , have extremes of body size, muscle mass, or nutritional status, or are non- or non-. According to the National Kidney Foundation, irrespective of diagnosis, the stage of the disease is based on the level of kidney function: Stage Description GFR(mL/min/1.73 m(2)) 1 Kidney damage with normal or decreased GFR 90 2 Kidney damage with mild decrease in GFR 60-89 3 Moderate decrease in GFR 30-59 4 Severe decrease in GFR 15-29 5 Kidney failure <15 (or dialysis) 72 Because ethnic data is not always readily available, this report includes an eGFR for both -Americans and non- Americans. The National Kidney Disease Education Program (NKDEP) does not endorse the use of the MDRD equation for patients that are not between the ages of 18 and 70, are , have extremes of body size, muscle mass, or nutritional status, or are non- or non-. According to the National Kidney Foundation, irrespective of diagnosis, the stage of the disease is based on the level of kidney function: Stage Description GFR(mL/min/1.73 m(2)) 1 Kidney damage with normal or decreased GFR 90 2 Kidney damage with mild decrease in GFR 60-89 3 Moderate decrease in GFR 30-59 4 Severe decrease in GFR 15-29 5 Kidney failure <15 (or dialysis) 73 Because ethnic data is not always readily available, this report includes an eGFR for both -Americans and non- Americans. The National Kidney Disease Education Program (NKDEP) does not endorse the use of the MDRD equation for patients that are not between the ages of 18 and 70, are , have extremes of body size, muscle mass, or nutritional status, or are non- or non-. According to the National Kidney Foundation, irrespective of diagnosis, the stage of the disease is based on the level of kidney function: Stage Description GFR(mL/min/1.73 m(2)) 1 Kidney damage with normal or decreased GFR 90 2 Kidney damage with mild decrease in GFR 60-89 3 Moderate decrease in GFR 30-59 4 Severe decrease in GFR 15-29 5 Kidney failure <15 (or dialysis) 74 Because ethnic data is not always readily available, this report includes an eGFR for both -Americans and non- Americans. The National Kidney Disease Education Program (NKDEP) does not endorse the use of the MDRD equation for patients that are not between the ages of 18 and 70, are , have extremes of body size, muscle mass, or nutritional status, or are non- or non-. According to the National Kidney Foundation, irrespective of diagnosis, the stage of the disease is based on the level of kidney function: Stage Description GFR(mL/min/1.73 m(2)) 1 Kidney damage with normal or decreased GFR 90 2 Kidney damage with mild decrease in GFR 60-89 3 Moderate decrease in GFR 30-59 4 Severe decrease in GFR 15-29 5 Kidney failure <15 (or dialysis) 75 Because ethnic data is not always readily available, this report includes an eGFR for both -Americans and non- Americans. The National Kidney Disease Education Program (NKDEP) does not endorse the use of the MDRD equation for patients that are not between the ages of 18 and 70, are , have extremes of body size, muscle mass, or nutritional status, or are non- or non-. According to the National Kidney Foundation, irrespective of diagnosis, the stage of the disease is based on the level of kidney function: Stage Description GFR(mL/min/1.73 m(2)) 1 Kidney damage with normal or decreased GFR 90 2 Kidney damage with mild decrease in GFR 60-89 3 Moderate decrease in GFR 30-59 4 Severe decrease in GFR 15-29 5 Kidney failure <15 (or dialysis) 76 A metabolite of Naproxen, O-desmethylnaproxen, has been shown to interfere with the Jendrassik-Merlene method for measuring total bilirubin. Samples from patients who have taken Naproxen have shown spurious elevation in total bilirubin levels. 77 Because ethnic data is not always readily available, this report includes an eGFR for both -Americans and non- Americans. The National Kidney Disease Education Program (NKDEP) does not endorse the use of the MDRD equation for patients that are not between the ages of 18 and 70, are , have extremes of body size, muscle mass, or nutritional status, or are non- or non-. According to the National Kidney Foundation, irrespective of diagnosis, the stage of the disease is based on the level of kidney function: Stage Description GFR(mL/min/1.73 m(2)) 1 Kidney damage with normal or decreased GFR 90 2 Kidney damage with mild decrease in GFR 60-89 3 Moderate decrease in GFR 30-59 4 Severe decrease in GFR 15-29 5 Kidney failure <15 (or dialysis) 78 A metabolite of Naproxen, O-desmethylnaproxen, has been shown to interfere with the Jendrassik-Merlene method for measuring total bilirubin. Samples from patients who have taken Naproxen have shown spurious elevation in total bilirubin levels. 79 Please note updated reference range, effective 05/01/10 80 Anion gap measurement may be of limited value in the presence of any alkalosis, especially in a combined acid base disorder. . 81 Because ethnic data is not always readily available, this report includes an eGFR for both -Americans and non- Americans. The National Kidney Disease Education Program (NKDEP) does not endorse the use of the MDRD equation for patients that are not between the ages of 18 and 70, are , have extremes of body size, muscle mass, or nutritional status, or are non- or non-. According to the National Kidney Foundation, irrespective of diagnosis, the stage of the disease is based on the level of kidney function: Stage Description GFR(mL/min/1.73 m(2)) 1 Kidney damage with normal or decreased GFR 90 2 Kidney damage with mild decrease in GFR 60-89 3 Moderate decrease in GFR 30-59 4 Severe decrease in GFR 15-29 5 Kidney failure <15 (or dialysis) 82 A metabolite of Naproxen, O-desmethylnaproxen, has been shown to interfere with the Jendrassik-Dale method for measuring total bilirubin. Samples from patients who have taken Naproxen have shown spurious elevation in total bilirubin levels. 83 Please note updated reference range, effective 05/01/10 84 Anion gap measurement may be of limited value in the presence of any alkalosis, especially in a combined acid base disorder. . 85 Because ethnic data is not always readily available, this report includes an eGFR for both -Americans and non- Americans. The National Kidney Disease Education Program (NKDEP) does not endorse the use of the MDRD equation for patients that are not between the ages of 18 and 70, are , have extremes of body size, muscle mass, or nutritional status, or are non- or non-. According to the National Kidney Foundation, irrespective of diagnosis, the stage of the disease is based on the level of kidney function: Stage Description GFR(mL/min/1.73 m(2)) 1 Kidney damage with normal or decreased GFR 90 2 Kidney damage with mild decrease in GFR 60-89 3 Moderate decrease in GFR 30-59 4 Severe decrease in GFR 15-29 5 Kidney failure <15 (or dialysis) Procedures Date Code Description Status 07/11/2018 Inject/Drain Joint/Bursa Major W/O US Completed 05/06/2018 45583 Myocardial Perfusion Imaging Tomographic (Spect) Completed Multiple Studies 05/02/2018 36073 Treadmill Interp/Report Only Completed 05/02/2018 76310 Stress Test Supervsn W/Out I/R Completed 04/08/2018 03698 ECHO Transthoracic, Real-Time 2D With Doppler And Completed Color Flow 04/08/2018 15643 ECHO Transthoracic, Real-Time 2D With Doppler And Completed Color Flow 04/06/2018 27979 EKG Tracing & Interpretation Completed 04/08/2017 [id number] Bone Mineral Density Test Completed 10/14/2016 28716 I&D Of Abscess Complicated Completed 03/05/201679934 Inject/Drain Joint/Bursa Major W/O US Completed 01/02/201689847 Inject/Drain Joint/Bursa Major W/O US Completed Encounters Type Date Location Provider Dx Diagnosis Office Visit 09/26/2018 Rheumatology Patti Torres, L40.59 Other psoriatic 1:00p [facility]IDENT C[facility] AID arthropathy L40.9 Psoriasis, unspecified Z79.899 Other fdc (current) drug therapy Office Visit 07/11/2018 1:30p [facility] Kathya Sheppard, M25.562 Pain in left Of [facility] M.D. knee M25.462 Effusion, left knee M17.12 Unilateral primary osteoarthritis, left knee E66.01 Morbid (severe) obesity due to excess calories M21.162 Varus deformity, not elsewhere classified, left knee Z68.41 Body mass index (BMI) 40.0-44.9, adult Office Visit 06/23/2018 Rheumatology Zsofia L40.59 Other psoriatic 11:30a Services Of Brian, [facility] C[facility] AID arthropathy [facility] L40.9 Psoriasis, unspecified M47.816 Spondylosis w/o myelopathy or radiculopathy, lumbar region Z79.899 Other remote computer terminal operator (current) drug therapy M25.562 Pain in left knee Z23 Encounter for immunization Office Visit 04/06/2018 3:45p [facility] Joesph Reddy R01.1 Cardiac murmur, Of Vanessa Linda M.D. unspecified R07.9 Chest pain, unspecified R06.02 Shortness of breath Office Visit 03/21/2018 Rheumatology Zsofia L40.50 Arthropathic 3:30p [facility], [facility] AID psoriasis, [employer] unspecified L40.0 Psoriasis vulgaris N18.3 Chronic kidney disease, stage 3 (moderate) M54.31 Sciatica, right side R01.1 Cardiac murmur, unspecified Z79.899 Other fdc (current) drug therapy Office Visit 12/13/2017 Rheumatology Zsofia L40.50 Arthropathic 3:30p [facility], [facility] AID psoriasis, [employer] unspecified L40.0 Psoriasis vulgaris N18.3 Chronic kidney disease, stage 3 (moderate) Z79.899 Other remote computer terminal operator (current) drug therapy Z23 Encounter for immunization Office Visit 09/06/2017 Rheumatology Zsofia L40.50 Arthropathic 3:00p [facility], [facility]IDENT C[facility] AID psoriasis, [employer] unspecified L40.0 Psoriasis vulgaris N18.3 Chronic kidney disease, stage 3 (moderate) Z79.899 Other fdc (current) drug therapy M17.0 Bilateral primary osteoarthritis of knee Office Visit 07/05/2017 Rheumatology Zsofia L40.50 Arthropathic 3:30p Services Of KEO Torres psoriasis, [employer] unspecified L40.0 Psoriasis vulgaris M54.5 Low back pain R29.6 Repeated falls N18.3 Chronic kidney disease, stage 3 (moderate) Z79.899 Other remote computer terminal operator (current) drug therapy Z23 Encounter for immunization Office Visit 06/04/2017 11:30a [facility] Lan Yentzer, L40.0 Psoriasis MD vulgaris Office Visit 06/03/2017 11:30a Rheumatology Zsofia Brian, L40.9 Psoriasis , Services Of [facility] unspecified [employer] [facility] L40.50 Arthropathic psoriasis, unspecified Z79.899 Other fdc (current) drug therapy Office Visit 04/05/2017 Rheumatology Zsofia L40.50 Arthropathic 1:30p [facility], [facility]IDENT C[facility] AID psoriasis, [employer] unspecified L40.9 Psoriasis, unspecified M85.9 Disorder of bone density and structure, unspecified M17.0 Bilateral primary osteoarthritis of knee Z79.899 Other remote computer terminal operator (current) drug therapy Office Visit 01/11/2017 Rheumatology Zsofia L40.50 Arthropathic 1:00p Services Of TALISHA TorresP psoriasis, [employer] unspecified L40.9 Psoriasis, unspecified L02.416 Cutaneous abscess of left lower limb R70.0 Elevated erythrocyte sedimentation rate R79.82 Elevated C-reactive protein (CRP) N18.2 Chronic kidney disease, stage 2 (mild) M25.562 Pain in left knee D64.9 Anemia, unspecified E03.9 Hypothyroidism, unspecified Z79.899 Other remote computer terminal operator (current) drug therapy R25.1 Tremor, unspecified Office Visit 11/24/2016 Surgical Aaron Willoughby L02.416 Cutaneous abscess 1:00p [facility] Berumen M.D. of left lower limb Office Visit 11/16/2016 Rheumatology Zsofia L40.50 Arthropathic 2:30p [facility], [facility]IDENT C[facility] AID psoriasis, [employer] unspecified L40.9 Psoriasis, unspecified L02.416 Cutaneous abscess of left lower limb R70.0 Elevated erythrocyte sedimentation rate R79.82 Elevated C-reactive protein (CRP) Z79.899 Other remote computer terminal operator (current) drug therapy Office Visit 11/09/2016 1:00p Surgical Leeanne Cortez02.416 [facility] St[facility] abscess of left Consulting Analyst lower limb Z48.01 Encounter for change or removal of surgical wound dressing Office Visit 10/26/2016 2:00p Surgical Rob Cortez02.416 [facility] Lind MD, abscess of left FACS lower limb Z48.01 Encounter for change or removal of surgical wound dressing Office Visit 10/14/2016 Surgical Aaron Cortez02.416 Cutaneous abscess 11:30a [facility] Vanessa Berumen M.D. of left lower limb Office Visit 07/13/2016 Rheumatology Zsofia L40.50 Arthropathic 3:30p Services Of KEO Torres psoriasis, [facility] unspecified R79.82 Elevated C-reactive protein (CRP) R70.0 Elevated erythrocyte sedimentation rate M25.562 Pain in left knee Z79.899 Other fdc (current) drug therapy Z23 Encounter for immunization Office Visit 06/22/2016 Rheumatology Zsofia L40.50 Arthropathic 3:30p Services Of KEO Torres psoriasis, [facility] unspecified R70.0 Elevated erythrocyte sedimentation rate R79.82 Elevated C-reactive protein (CRP) M17.0 Bilateral primary osteoarthritis of knee M25.561 Pain in right knee E66.9 Obesity, unspecified Z79.899 Other fdc (current) drug therapy R79.89 Other specified abnormal findings of blood chemistry D64.9 Anemia, unspecified Office Visit 03/16/2016 Rheumatology Zsofia L40.50 Arthropathic 3:30p Services Of KEO Torres psoriasis, [employer] unspecified L40.9 Psoriasis, unspecified M17.0 Bilateral primary osteoarthritis of knee Z79.899 Other fdc (current) drug therapy Office Visit 02/05/2016 2:40p Rheumatology Ney Brown M25.562 Pain in Services Of Vanessa Stephen left knee L40.50 Arthropathic psoriasis, unspecified M17.12 Unilateral primary osteoarthritis, left knee Office Visit 12/18/2015 Rheumatology Zsofia L40.50 Arthropathic 4:00p Services Of KEO Farr psoriasis, unspecified L40.9 Psoriasis, unspecified M25.561 Pain in right knee M25.562 Pain in left knee Z79.899 Other remote computer terminal operator (current) drug therapy Office Visit 09/18/2015 Rheumatology Zsofia L40.50 Arthropathic 3:00p Services Of [facility] Brian, [facility]IDENT [facility] AID psoriasis, unspecified L40.9 Psoriasis, unspecified M25.562 Pain in left knee Z79.899 Other remote computer terminal operator (current) drug therapy E66.9 Obesity, unspecified Office Visit 06/19/2015 1:30p Rheumatology Zsofia 696.0 Psoriatic [facility] Brian, RESIDENT CARE AID Arthropathy 696.1 Psoriasis Other 719.46 Pain Joint Lower Leg V58.69 Medications Chcf (Current) Use Encounter 278.01 Obesity Morbid Office Visit 03/19/2015 3:30p Rheumatology Zsofia 696.0 Psoriatic [facility] Brian, RESIDENT CARE AID Arthropathy 696.1 Psoriasis Other V58.69 Medications Chcf (Current) Use Encounter 719.46 Pain Joint Lower Leg Office Visit 12/28/2014 2:30p Rheumatology Zsofia 696.0 Psoriatic [facility] Brian, RESIDENT CARE AID Arthropathy 682.6 Cellulitis & Abscess Leg Except Foot 696.1 Psoriasis Other V58.69 Medications Chcf (Current) Use Encounter 782.1 Rash & Other Nonspec Skin Eruption Office Visit 10/05/2014 3:30p Rheumatology Zsofiaylin Torres, 782.1 Rash & Other Services Of [facility] RESIDENT CARE AID Nonspec Skin Eruption 682.6 Cellulitis & Abscess Leg Except Foot 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 V58.69 Medications Bioprocess Development Engineer (Current) Use Encounter Office Visit 09/28/2014 3:30p Rheumatology Zsofia 696.0 Psoriatic [facility] Brian, RESIDENT CARE AID Arthropathy 696.1 Psoriasis Other V58.69 Medications Chcf (Current) Use Encounter 682.6 Cellulitis & Abscess Leg Except Foot 782.3 Edema Office Visit 06/26/2014 3:30p Rheumatology Zsofia 696.0 Psoriatic [facility] Brian, RESIDENT CARE AID Arthropathy 696.1 Psoriasis Other 719.46 Pain Joint Lower Leg V58.69 Medications Chcf (Current) Use Encounter 719.41 Pain Joint Shoulder Region Office Visit 04/03/2014 2:00p Rheumatology Zsofia 696.0 Psoriatic Services Of Vanessa Torres RESIDENT CARE AID Arthropathy 696.1 Psoriasis Other V58.69 Medications Bioprocess Development Engineer (Current) Use Encounter 784.0 Headache Office Visit 02/06/2014 1:30p Rheumatology Giovanaofia 696.0 Psoriatic Services Of Vanessa Torres, RESIDENT CARE AID Arthropathy 696.1 Psoriasis Other 041.02 Streptococcus Group B V58.69 Medications Bioprocess Development Engineer (Current) Use Encounter Office Visit 11/14/2013 1:20p Rheumatology Obdulio Mclain, 696.0 Psoriatic Services Of Vanessa M.D. Arthropathy 696.1 Psoriasis Other V58.69 Medications Chcf (Current) Use Encounter 466.0 Bronchitis Acute Office Visit 08/22/2013 1:00p Rheumatology Obdulio Mclain, 696.0 Psoriatic Services Of [employer] M.D. Arthropathy 696.1 Psoriasis Other V58.69 Medications Bioprocess Development Engineer (Current) Use Encounter 715.94 Osteoarthrosis Unspec Genlzd Or Localized Hand 715.16 Osteoarthrosis Localized Prim Lower Leg Office Visit 05/30/2013 1:20p Rheumatology Obdulio Mclain, 696.0 Psoriatic Services Of [employer] M.D. Arthropathy 696.1 Psoriasis Other V58.69 Medications Chcf (Current) Use Encounter Office Visit 03/03/2013 1:00p Rheumatology Obdulio Mclain, 696.0 Psoriatic Services Of [employer] M.D. Arthropathy 696.1 Psoriasis Other V58.69 Medications Bioprocess Development Engineer (Current) Use Encounter Office Visit 12/06/2012 1:00p Rheumatology Obdulio Mclain, 696.0 Psoriatic Services Of [employer] M.D. Arthropathy 696.1 Psoriasis Other V58.69 Medications Bioprocess Development Engineer (Current) Use Encounter Office Visit 09/05/2012 1:00p Rheumatology Obdulio Mclain, 696.0 Psoriatic Services Of [employer] M.D. Arthropathy 696.1 Psoriasis Other V58.69 Medications Bioprocess Development Engineer (Current) Use Encounter Office Visit 05/31/2012 1:20p Rheumatology Obdulio Mclain, 696.0 Psoriatic Services Of [employer] Analy[employer] M.D. Arthropathy 696.1 Psoriasis Other V58.69 Medications Chcf (Current) Use Encounter 715.16 Osteoarthrosis Localized Prim Lower Leg Office Visit 02/29/2012 1:20p Rheumatology Obdulio Mclain, 696.0 Psoriatic Services Of [employer] M.D. Arthropathy V58.69 Medications Bioprocess Development Engineer (Current) Use Encounter Office Visit 12/01/2011 1:00p Rheumatology Obdulio Endo, 696.0 Psoriatic Services Of Consulting Analyst M.D. Arthropathy V58.69 Medications Chcf (Current) Use Encounter Office Visit 08/31/2011 1:20p Rheumatology Obdulio Endo, 696.0 Psoriatic Services Of Consulting Analyst M.D. Arthropathy V58.69 Medications Bioprocess Development Engineer (Current) Use Encounter Office Visit 05/28/2011 1:20p Rheumatology Obdulio Endo, 696.0 Psoriatic Services Of [employer]ing Analy[employer] M.D. Arthropathy V58.69 Medications Chcf (Current) Use Encounter Office Visit 03/19/2011 11:40a Rheumatology Obdulio Endo, 696.1 Psoriasis Other Services Of Consulting Analy[employer] M.D. 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 at [facility]01/04/2019 11:30 am - Joesph Linda M.D. at [facility]01/10/2019 8:00 am - Kathya Sheppard M.D. at [facility]12/28/2018 - Kathya Sheppard M.D.M25.462 Effusion, left kneeFollow up:Follow up: 2 weeks after agwqrhqM00.562 Pain in left kneeM17.12 Unilateral primary osteoarthritis, left knee
[2019-01-10] MEDS ORDERED: KETAMINE HCL* 50 MG/ML 10 ML VIAL ONE (13:19)
[2019-01-10] MEDS ORDERED: Propofol* 10 MG/ML 20 ML BTL ONE (13:19)
[2019-01-10] MEDS ORDERED: Midazolam* 1 MG/ML 2 ML VIAL (2 MG) ONE (13:19)
[2019-01-10] MEDS ORDERED: Lidocaine 2% PF * 5 ML VIAL ONE (13:19)
[2019-01-10] MEDS ORDERED: Ropivacaine* 2 MG/ML 20 ML VIAL (0.2%) ONE (13:20)
[2019-01-10] MEDS ORDERED: Bupivacaine 0.25% SDV PF* 10 ML VIAL INJ ONE (13:21)
[2019-01-10] MEDS ORDERED: ROPIVACAINE 5 MG/ML 30 ML BTL (0.5%) ONE ×2 (13:22→16:20)
[2019-01-10] MEDS ORDERED: Dexmedetomidine* 200 MCG/2 ML 2 ML VIAL ONE (13:25)
[2019-01-10] MEDS ORDERED: Clindamycin 900 MG/D5W BAG(*) 900 MG/50 ML BAG IVPB ONE (13:43)
[2019-01-10] MEDS ORDERED: Bupivacaine 0.5% SDV PF* 30ML VIAL ONE (15:06)
[2019-01-10] MEDS ORDERED: EPHEDrine (Pressors)* 50 MG/ML VIAL ONE (15:39)
[2019-01-10] MEDS ORDERED: Dexamethasone IV* 4 MG/ML 1 ML (4 MG) ONE (16:19)
[2019-01-10] MEDS ORDERED: Propofol* 500 MG/50 ML BTL ONE (16:27)
[2019-01-10] MEDS ORDERED: oxyCODONE TAB* 5 MG TAB PO PRN (16:30)
[2019-01-10] MEDS ORDERED: Acetaminophen IV 1GM/100ML * 1,000 MG/100 ML VIAL IVPB ONE (16:30)
[2019-01-10] MEDS ORDERED: Ondansetron INJ* 2 MG/ML VIAL IV PRN ×2 (16:30→17:03)
[2019-01-10] MEDS ORDERED: Ketorolac INJ* 30 MG/ML 1 ML VIAL IV PRN (16:30)
[2019-01-10] MEDS ORDERED: Naloxone* 0.4 MG/ML 1 ML VIAL IV PRN (16:30)
[2019-01-10] MEDS ORDERED: HYDROmorphone INJ1* 1 MG/ML SYRINGE IV PRN (16:30)
[2019-01-10] MEDS ORDERED: Polyethylene Glycol 3350* 17 GM PACKET PO PRN (17:03)
[2019-01-10] MEDS ORDERED: Bisacodyl SUPP* 10 MG SUPP PR PRN (17:03)
[2019-01-10] MEDS ORDERED: diPHENhydraMINE PO* 25 MG PO PRN (17:03)
[2019-01-10] MEDS ORDERED: traMADol TAB* 50 MG PO PRN (17:03)
[2019-01-10] MEDS ORDERED: diPHENhydraMINE IV* 50 MG/ML 1 ml VIAL (BENADRYL) IV PRN (17:03)
[2019-01-10] MEDS ORDERED: Magnesium Hydroxide LIQ* 30 ML UDC PO PRN (17:03)
[2019-01-10] MEDS ORDERED: Cyclobenzaprine TAB* 10 MG PO PRN (17:03)
[2019-01-10] MEDS ORDERED: Morphine INJ* 2 MG/ML 1 ML SYRINGE (TWO MG - NEW SYRINGE VERSION) IV PRN (17:03)
[2019-01-10] MEDS ORDERED: Triamcinolone 0.025% OINT * 15 GM TUBE TOPICAL PRN (17:17)
[2019-01-10] MEDS ORDERED: Acyclovir* 400 MG TAB PO PRN (17:17)
[2019-01-10] MEDS ORDERED: Nystatin CREAM* 15 GM TUBE TOPICAL PRN (17:17)
[2019-01-10] MEDS ORDERED: oxyCODONE/Acetamin 5/325 MG* TAB PO PRN (17:23)
[2019-01-10] MEDS ORDERED: Adalimumab (NF) 40 MG/0.8 ML KIT _- DISPENSE @ no charge- _ SUBCUT SCH (18:00)
[2019-01-10] MEDS ORDERED: Losartan TAB* 25 MG PO SCH (18:00)
--- NOTE | 2019-01-10 18:17 | OP ---
Operative Report - Blank - Operative Report Date of Operation: 01/10/19 Note: LUCAS MULLER 1945 Date of Surgery: 01/10/19 Kathya Sheppard MD Tool Room Attendant: Dawood VEGAS did help throughout the procedure with preparation of the knee, wound retraction, manipulation of the knee, and wound closure. Anesthesiologist: Kimberlee Alvares MD Anesthesia Type: Spinal Preoperative Diagnosis: Left severe degenerative osteoarthritis of the knee Postoperative Diagnosis: As above Procedure Performed: Left Total Knee Arthroplasty Tourniquet time: 54 minutes Complications: None Specimen: Bone and cartilage from the left knee joint sent to pathology. Hardware Used: Cemented [employer] total knee hardware was used - For the femur a size 6 narrow left legion posterior stabilized femoral component, for the tibia a size 5 left manasa II tibial baseplate, for the insert a size 13 5- 6 posterior stabilized articular polyethylene insert, and for the patella a size 35 3-peg all poly patella. Brief History/Indication: LUCAS MULLER was known in clinic and had a history of severe side knee pain and swelling. She failed conservative treatment with anti-inflammatories, pain pills, intra-articular injections and physical therapy. She elected to undergo left total knee arthroplasty due to continued pain and decreased quality of life. Radiographs showed severe end stage osteoarthritis of the knee with bone on bone contact. Informed consent was obtained from the patient. She understood the risks of surgery included but were not limited to: bleeding, infection, damage to nearby structures, intraoperative fracture, nerve palsy, failure of the hardware, early loosening, knee stiffness or loss of motion, anesthesia complications, stroke, heart attack , blood clot and . She wished to proceed. Intra-Operative Findings: Intraoperatively the patient was noted to have severe loss of cartilage in all 3 compartments of the knee. Description of the Procedure: LUCAS MULLER was identified in the preanesthesia unit. Her left knee was marked as the correct operative side. Informed consent was signed and placed in the chart. The patient was taken to the operating room and placed under anesthesia without complication. A liriano catheter was placed. A tourniquet was placed on the left thigh. The left lower extremity was prepped and draped in the usual sterile fashion. Preoperative time-out was made to correctly identify the patient, side and site. Appropriate intraoperative antibiotics were given within one hour of incision. Tourniquet was inflated. A midline incision was made and carried sharply down to the extensor mechanism. A new 10 blade was used to make a standard medial parapatellar arthrotomy. The patella was subluxed laterally. Electrocautery was used to dissect soft tissue off the superomedial tibia to the midsagittal plane. The knee was flexed up. The anterior horn of the lateral meniscus and the ACL were sharply incised. A drill was used to enter the distal femur. The intramedullary distal femoral cutting guide was pinned on the distal femur. The oscillating saw was used to make the distal femoral cut. The external rotation guide was pinned on the distal femur and the distal femur was sized to a size 6. The size 6 multi-cutting jig was pinned on the distal femur. The oscillating saw was used to make the appropriate 4 chamfer cuts. Next the PCL was completely released. The extramedullary tibial cutting guide was pinned on the proximal tibia and the oscillating saw was used to make the proximal tibial cut perpendicular to the mechanical axis of the tibia. The bone was carefully removed. The knee was brought out into full extension. The spacer block was placed and had excellent fit with the knee in full extension. The medial and lateral ligaments were well balanced. The flexion and extension gaps were well balanced. The knee was flexed up. Lamina electronics scale tester was placed both medially and laterally. Any remaining meniscus was removed with electrocautery. Curved osteotome was used to remove any posterior osteophytes. The tibial tray and drop kervin were placed and confirmed a satisfactory tibial cut. The size 6 left narrow femoral trial was impacted onto the distal femur. This trial had excellent fit and stability. The box for the posterior stabilized implant was prepared using a box cut osteotome and a reamer. Next a tibial tray trial and 11 mm insert trial was placed. The knee was taken through a range of motion and had full extension to 130 degrees of flexion. Patellofemoral tracking was satisfactory. The patella was inverted and sized to a size 35. Three peg holes were drilled through the size 35 drill guide. The trial patella was placed and the knee was taken through a range of motion. There was satisfactory patellofemoral tracking. All trials were removed. The tibia was subluxed anteriorly and sized to a size 5. The proximal tibial was prepared with a size 5 keel punch. All bony cut surfaces were irrigated with sterile saline and dried. Final implants were cemented into place starting with the tibia, followed by the femur, and last the patella. A13 mm insert trial was placed and the knee was brought into full extension. Tourniquet was turned down and the knee was copiously irrigated with sterile saline. Electrocautery was used to obtain meticulous hemostasis. Once the cement had fully cured, the insert trial was removed. Any excess cement was removed from around the hardware and capsule. Final insert chosen was a 13 mm posterior stabilized Manasa II articular insert size 5-6. Stability of the insert was checked and noted to be stable. The extensor mechanism was closed using number 1 vicryls. The rest of the incision was closed in a layered fashion using 0 and 2-0 vicryls. The skin was closed using 3-0 nylon suture. Sterile xeroform, 4x4s and webril were used to cover the incision. John wrap and cold pack were used to cover the dressings. The patients anesthesia was reversed without difficulty. She was taken to the PACU in stable condition. Intended weight-bearing will be as tolerated.
--- NOTE | 2019-01-10 21:41 | CONS ---
CC: Dr. Sheppard; Dr. Linda; Dr. Luna * CONSULTATION REPORT: DATE OF CONSULT: 01/10/19. PRIMARY CARE PROVIDER: Dr. Luna. PRN OCCUPATIONAL THERAPIST: Dr. Linda. ORTHOPEDIC SURGEON: Dr. Sheppard. PHYSICIAN REQUESTING THE CONSULT: Dr. Sheppard from Orthopedic Surgery. REASON FOR CONSULT: Management of hypertensive medications in a patient postoperative replacement of left knee. CHIEF COMPLAINT: Left knee pain. HISTORY OF PRESENT ILLNESS: Ms. Dupree is a 73-year-old female with a history of psoriasis and psoriatic arthritis, who has had problems with osteoarthritis of the left knee. Today, she is postoperative left knee replacement by Dr. Sheppard. She has a history of hypertension and Dr. Sheppard requested Medicine consult in regard of management of the patient's current medical conditions postoperatively. PAST MEDICAL HISTORY: 1. History of psoriasis with psoriatic arthritis. 2. History of hypothyroidism. 3. Gastroesophageal reflux disease. 4. History of MRSA positive cultures in the past. 5. History of hypertension, hypercholesterolemia, depression/anxiety. 6. History of tonsillectomy and adenoidectomy. 7. History of herpes. 8. Status post tubal ligation. 9. History of "heart murmur." 10. The patient also has a history of rheumatoid arthritis. MEDICATIONS: At home include: 1. Levothyroxine 150 mcg daily. 2. Fluoxetine 40 mg daily. 3. Acetaminophen with codeine on a p.r.n. basis. 4. Triamcinolone cream p.r.n. 5. Neurontin 300 mg 3 times a day. 6. Losartan 50 mg twice a day. 7. Nasonex 50 mcg 2 sprays each nostril daily as needed. 8. Acyclovir 400 mg b.i.d. 9. Pravastatin 80 mg daily. 10. Protonix 40 mg daily. 11. Hydrochlorothiazide 25 mg daily. 12. Piroxicam 20 mg daily. 13. The patient had been on leflunomide in the past, but it is held prior to her surgery. 14. The patient was on Enbrel, but developed skin lesions and that is currently held. ALLERGIES: Include DIFLUCAN, it caused the patient "I could not walk." The patient also has DOXYCYCLINE, AMOXICILLIN on the allergy list. FAMILY HISTORY: Positive for mother with breast cancer, paternal grandmother with breast cancer, and father with history of aortic aneurysm. SOCIAL HISTORY: The patient quit smoking in . She denies any alcohol or tobacco use currently. Her surrogate is her daughter. REVIEW OF SYSTEMS: Please see history of present illness. All the remaining 12 systems were reviewed with the patient and were otherwise negative. PHYSICAL EXAM: Blood pressure 111/79, heart rate of 82 and regular, respiratory rate 18, oxygen saturation 95% on 6 L of oxygen nasal cannula, temperature 97.3. General: The patient is a very pleasant 73-year-old female, who is in no acute distress. The patient is alert, awake, and oriented x3. Mildly sedated. HEENT: Head atraumatic, normocephalic. Eyes: Pupils are equal and reactive to light and accommodation. Oropharynx is clear. Mucosa moist. Neck: Supple. No JVD. No bruits bilaterally. Cardiovascular: Regular rate and rhythm with 2/6 diastolic murmur. Respiratory: Clear to auscultation bilaterally. Abdomen: Soft, nontender. Bowel sounds are present in all 4 quadrants. Extremities: There is no edema. Pulses are +2 bilaterally. There is no clubbing or cyanosis. The left knee is wrapped in postsurgical dressings and cryo unit in place. Psychiatric Evaluation: Oriented x3 with no evidence of of anxiety or depression. DIAGNOSTIC STUDIES/LAB DATA: Laboratory data - none. ASSESSMENT AND PLAN: 1. For postoperative knee, the patient is going to be managed as per her orthopedic service. 2. For the patient's hypertension, the patient's hydrochlorothiazide is going to be held as well as losartan. This likely will be started within another 1 to 2 days depending on the patient's blood pressures postoperatively. 3. In regard to the patient's history of rheumatoid arthritis and psoriatic arthritis, the patient's leflunomide as well as Humira are going to be held postoperatively. 4. For hypothyroidism, the patient is going to be continued on her Synthroid dose at 160 mg daily. 5. For DVT prophylaxis, the patient was replaced on Eliquis by orthopedic surgeon, which is going to be continued. 6. The patient's code status is full and her surrogate is her daughter. TIME SPENT: Approximately 65 minutes were spent on consultation of this patient , more than half that time was spent [id number] with the patient during the interview and physical exam. Thank you very much for allowing our service to see your patient in consultation. We will follow tomorrow. [id number]/[facility] #: [id number] SAYDA
[2019-01-10] MEDS: Lactated Ringers 1000 ML Bag* 1,000 ML IV SCH (22:30)
[2019-01-10] MEDS: oxyCODONE/Acetamin 5/325 MG* TAB PO PRN (23:37)
[2019-01-10] MEDS: Docusate CAP* 100 MG PO SCH (23:37)
[2019-01-10] MEDS: Gabapentin CAP(*) 300 MG PO SCH (23:37)
[2019-01-10] MEDS: FLUoxetine CAP* 20 MG PO SCH (23:37)
[2019-01-10] MEDS: Magnesium Hydroxide LIQ* 30 ML UDC PO SCH (23:38)
[2019-01-10] MEDS: Acetaminophen TAB* 325 MG PO SCH (23:49)
[2019-01-11] MEDS: Clindamycin 600 MG/D5W BAG(*) 600 MG/50 ML BAG IV SCH ×3 (00:07→16:15)
[2019-01-11] MEDS: oxyCODONE TAB* 5 MG TAB PO PRN ×4 (01:04→16:11)
[2019-01-11] MEDS: oxyCODONE/Acetamin 5/325 MG* TAB PO PRN ×3 (03:34→19:40)
[2019-01-11 05:43] LABS: Hematocrit 29 % (33-41); Hemoglobin 9.7 g/dL (12.0-16.0); Platelet Count 183 10^3/uL (150-450)
[2019-01-11 05:55] LABS: BUN/Creatinine Ratio 21.2 (8-20); Calcium 8.5 mg/dL (8.6-10.3); EGFR African American 57.3 (>60); EGFR Non-African American 47.3 (>60)
[2019-01-11] MEDS: Levothyroxine TAB* 150 MCG TAB PO SCH (06:49)
[2019-01-11] MEDS: Acetaminophen TAB* 325 MG PO SCH ×3 (06:53→22:04)
[2019-01-11] MEDS: Magnesium Hydroxide LIQ* 30 ML UDC PO SCH ×2 (07:27→19:42)
[2019-01-11] MEDS: Docusate CAP* 100 MG PO SCH ×2 (07:27→19:39)
[2019-01-11] MEDS: Pantoprazole TAB * 40 MG TAB PO SCH (07:27)
[2019-01-11] MEDS: Gabapentin CAP(*) 300 MG PO SCH ×2 (07:27→19:39)
[2019-01-11] MEDS: FLUoxetine CAP* 20 MG PO SCH ×2 (07:27→19:39)
[2019-01-11] MEDS: Apixaban* 2.5 MG TAB PO SCH ×2 (07:27→19:40)
[2019-01-11] MEDS ORDERED: Hydrochlorothiazide TAB* 25 MG PO SCH (09:00)
[2019-01-11] MEDS ORDERED: LEFLUNOMIDE 20 MG PO SCH (09:00)
[2019-01-11] MEDS: Piroxicam CAP* 20 MG PO SCH (09:29)
--- NOTE | 2019-01-11 09:31 | PN ---
Progress Note - Progress Note Date of Service: 01/11/19 SOAP: Subjective: []Patient seen at bedside. She feels very well. Knee pain is well controlled. Denies CP, SOB, dizziness, nausea. Objective: []General: Well appearing, NAD LLE: Left knee dressing CDI, thigh is soft, DF/PF intact, sensation intact to light touch distally, DP2+ Calves are supple and nontender without erythema, edema or palpable cords Assessment: []POD 1 sp Left total knee replacement 01/09/19 Dr Sheppard Plan: []WBAT PT/OT PMRU referral in eliquis 2.5 mg po BID Vital Signs Temp 98.0 F 01/11/19 03:38 Pulse 66 01/11/19 03:38 Resp 16 01/11/19 09:30 BP 125/67 01/11/19 03:38 Pulse Ox 93 01/11/19 03:38 Intake & Output 01/10/19 01/11/19 01/11/19 18:59 06:59 18:59 Intake Total 2350 650 Output Total 250 950 Balance 2100 -300 Weight 239 lb 6.4 oz Intake: IV Fluids 2350 CLINDAMYCIN 900MG 50 LR 2300 Oral 650 Output: Berg 150 950 Estimated Blood Loss 100 Laboratory Last Values Hgb 9.7 g/dL (12.0-16.0) L 01/11/19 05:04 Hct 29 % (33-41) L 01/11/19 05:04 Plt Count 183 10^3/uL (150-450) 01/11/19 05:04 MPV 9.0 fL (7.4-10.4) 01/11/19 05:04 Sodium 134 mmol/L (135-145) L 01/11/19 05:04 Potassium 4.0 mmol/L (3.5-5.0) 01/11/19 05:04 Chloride 104 mmol/L (101-111) 01/11/19 05:04 Carbon Dioxide 26 mmol/L (22-32) 01/11/19 05:04 Anion Gap 4 mmol/L (2-11) 01/11/19 05:04 BUN 24 mg/dL (6-24) 01/11/19 05:04 Creatinine 1.13 mg/dL (0.51-0.95) H 01/11/19 05:04 Est GFR ( Amer) 57.3 (>60) 01/11/19 05:04 Est GFR (Non-Af Amer) 47.3 (>60) 01/11/19 05:04 BUN/Creatinine Ratio 21.2 (8-20) H 01/11/19 05:04 Glucose 159 mg/dL (70-100) H 01/11/19 05:04 Calcium 8.5 mg/dL (8.6-10.3) L 01/11/19 05:04
[2019-01-11] MEDS: Lactated Ringers 1000 ML Bag* 1,000 ML IV SCH (09:42)
[2019-01-11] MEDS: Losartan TAB* 25 MG PO SCH (19:39)
[2019-01-12] MEDS: oxyCODONE/Acetamin 5/325 MG* TAB PO PRN ×2 (02:28→08:33)
[2019-01-12] MEDS: Acetaminophen TAB* 325 MG PO SCH ×3 (05:43→22:41)
[2019-01-12] MEDS: Levothyroxine TAB* 150 MCG TAB PO SCH (05:44)
[2019-01-12 06:26] LABS: Hematocrit 28 % (33-41); Hemoglobin 9.3 g/dL (12.0-16.0); Mean Platelet Volume 9.1 fL (7.4-10.4); Platelet Count 180 10^3/uL (150-450)
[2019-01-12] MEDS: Apixaban* 2.5 MG TAB PO SCH ×2 (10:14→20:23)
[2019-01-12] MEDS: Gabapentin CAP(*) 300 MG PO SCH ×2 (10:14→20:24)
[2019-01-12] MEDS: Pantoprazole TAB * 40 MG TAB PO SCH (10:14)
[2019-01-12] MEDS: Hydrochlorothiazide TAB* 25 MG PO SCH (10:15)
[2019-01-12] MEDS: Docusate CAP* 100 MG PO SCH ×2 (10:15→21:01)
[2019-01-12] MEDS: FLUoxetine CAP* 20 MG PO SCH ×2 (10:15→20:24)
[2019-01-12] MEDS: Piroxicam CAP* 20 MG PO SCH (10:16)
[2019-01-12] MEDS: Losartan TAB* 25 MG PO SCH (10:16)
[2019-01-12] MEDS: Magnesium Hydroxide LIQ* 30 ML UDC PO SCH ×2 (10:16→21:01)
[2019-01-12] MEDS ORDERED: Lactobacillus Acidophilus* 1 TAB PO ONE (15:23)
--- NOTE | 2019-01-12 15:29 | PN ---
Subjective Date of Service: 01/12/19 Interval History: Pt developed loose stools today(3x so far), denies pain, appetite good Objective Active Medications: Acetaminophen (Tylenol Tab*) 975 mg PO Q8HR [facility] Last Admin: 01/12/19 14:07 Dose: 975 mg Acyclovir (Zovirax Tab*) 400 mg PO DAILY PRN PRN Reason: cold sores Apixaban (Eliquis*) 2.5 mg PO BID [facility] Last Admin: 01/12/19 10:14 Dose: 2.5 mg Bisacodyl (Dulcolax Supp*) 10 mg CO DAILY PRN PRN Reason: constipation Cyclobenzaprine HCl (Flexeril Tab*) 10 mg PO TID PRN PRN Reason: SPASMS Last Admin: 01/11/19 01:04 Dose: 10 mg Diphenhydramine HCl (Benadryl Iv*) 25 mg IV Q6H PRN PRN Reason: itching Diphenhydramine HCl (Benadryl Po*) 25 mg PO Q6H PRN PRN Reason: INSOMNIA Docusate Sodium (Colace Cap*) 100 mg PO BID [facility] Last Admin: 01/12/19 10:15 Dose: 100 mg Fluoxetine HCl (Prozac Cap*) 20 mg PO BID [facility] Last Admin: 01/12/19 10:15 Dose: 20 mg Gabapentin (Neurontin Cap(*)) 300 mg PO BID [facility] Last Admin: 01/12/19 10:14 Dose: 300 mg Hydrochlorothiazide (Hydrodiuril Tab*) 25 mg PO DAILY [facility] Last Admin: 01/12/19 10:15 Dose: 25 mg Lactated Ringer's (Lactated Ringers 1000 Ml Bag*) 1,000 mls @ 100 mls/hr IV PER RATE [facility] Last Admin: 01/11/19 09:42 Dose: 100 mls/hr Lactulose (Lactulose*) 30 ml PO Q6H PRN PRN Reason: constipation Levothyroxine Sodium (Synthroid Tab*) 150 mcg PO QAM@0600 [facility] Last Admin: 01/12/19 05:44 Dose: 150 mcg Losartan Potassium (Cozaar Tab*) 50 mg PO DAILY [facility] Last Admin: 01/12/19 10:16 Dose: 50 mg Magnesium Hydroxide (Milk Of Magnesia Liq*) 30 ml PO BID [facility] Last Admin: 01/12/19 10:16 Dose: 30 ml Magnesium Hydroxide (Milk Of Magnesia Liq*) 30 ml PO Q6H PRN PRN Reason: constipation Morphine Sulfate (Morphine Inj (Syringe))*) 2 mg IV Q2H PRN PRN Reason: PAIN Nystatin (Nystatin Cream*) 1 applic TOPICAL DAILY PRN PRN Reason: yeast infection Ondansetron HCl (Zofran Inj*) 4 mg IV Q6H PRN PRN Reason: nausea Last Admin: 01/12/19 08:31 Dose: 4 mg Oxycodone HCl (Roxycodone Tab*) 10 mg PO Q4H PRN PRN Reason: breakthru pain Last Admin: 01/11/19 16:11 Dose: 10 mg Oxycodone/Acetaminophen (Percocet 5/325 Tab*) 2 tab PO Q3H PRN PRN Reason: PAIN - MODERATE Last Admin: 01/12/19 08:33 Dose: 2 tab Oxycodone/Acetaminophen (Percocet 5/325 Tab*) 1 tab PO Q3H PRN PRN Reason: PAIN - MODERATE Pantoprazole Sodium (Protonix Tab*) 40 mg PO [facility] Last Admin: 01/12/19 10:14 Dose: 40 mg Piroxicam (Feldene Cap*) 20 mg PO [facility] Last Admin: 01/12/19 10:16 Dose: 20 mg Polyethylene Glycol/Electrolytes (Miralax*) 17 gm PO DAILY PRN PRN Reason: Constipation Tramadol HCl (Ultram*) 50 mg PO Q6H PRN PRN Reason: PAIN Triamcinolone Acetonide (Triamcinolone 0.025% Oint *) 1 applic TOPICAL DAILY PRN PRN Reason: RASH Vital Signs - 8 hr 01/12/19 01/12/19 01/12/19 07:33 08:00 08:33 Temperature 98.6 F Pulse Rate 77 Respiratory 16 16 18 Rate Blood Pressure 130/66 (mmHg) O2 Sat by Pulse 91 91 Oximetry 01/12/19 01/12/19 01/12/19 10:14 11:52 12:07 Temperature 98.3 F Pulse Rate 70 Respiratory 18 16 Rate Blood Pressure 132/26 126/72 (mmHg) O2 Sat by Pulse 90 Oximetry Oxygen Devices in Use Now: None Appearance: 73 yo F in nAD, AAOx3 Eyes: No Scleral Icterus, PERRLA Ears/Nose/Mouth/Throat: NL Teeth, Lips, Gums, Mucous Membranes Moist Neck: NL Appearance and Movements; NL JVP, Trachea Midline Respiratory: Symmetrical Chest Expansion and Respiratory Effort, Clear to Auscultation Cardiovascular: NL Sounds; No Murmurs; No JVD, RRR Abdominal: NL Sounds; No Tenderness; No Distention Lymphatic: No Cervical Adenopathy Extremities: No Clubbing, Cyanosis, - - trace left ankle edema, left knee in cryo unit, surgical dressings not removed Skin: No Nodules or Sclerosis Neurological: Alert and Oriented x 3, NL Muscle Strength and Tone Result Diagrams: 01/12/19 05:56 01/11/19 05:04 Microbiology and Other Data: Microbiology 01/10/19 23:40 Nasal Screen MRSA (PCR) - Final Nasal Mrsa Not Detected Assess/Plan/Problems-Billing Assessment: 73 F with h/o RA, HTN s/p elective left knee arthoplasty - Patient Problems (1) History of total knee arthroplasty Comment: as per ortho team (2) HTN (hypertension) Comment: controlled . Cont HCTZ, Losartan (3) Rheumatoid arthritis Comment: holding Arava and Humira periop (4) Diarrhea Comment: will observe, poss reaction to periop antibiotic will start probiotic (5) CKD (chronic kidney disease) stage 3, GFR 30-59 ml/min Comment: creat at baseline (6) DVT prophylaxis Comment: cont Eliquis as per ortho Status and Disposition: Medicine consult
[2019-01-12] MEDS: oxyCODONE TAB* 5 MG TAB PO PRN (20:24)
[2019-01-12] MEDS: Lactobacillus Acidophilus* 1 TAB PO SCH (20:24)
[2019-01-13 05:47] LABS: Hematocrit 27 % (33-41); Hemoglobin 8.9 g/dL (12.0-16.0); Mean Platelet Volume 8.4 fL (7.4-10.4); Platelet Count 182 10^3/uL (150-450)
[2019-01-13] MEDS: Acetaminophen TAB* 325 MG PO SCH (06:00)
[2019-01-13] MEDS: Levothyroxine TAB* 150 MCG TAB PO SCH (06:00)
[2019-01-13] MEDS: Losartan TAB* 25 MG PO SCH (08:02)
[2019-01-13] MEDS: oxyCODONE TAB* 5 MG TAB PO PRN (08:02)
[2019-01-13] MEDS: Pantoprazole TAB * 40 MG TAB PO SCH (08:02)
[2019-01-13] MEDS: Gabapentin CAP(*) 300 MG PO SCH (08:03)
[2019-01-13] MEDS: FLUoxetine CAP* 20 MG PO SCH (08:04)
[2019-01-13] MEDS: Apixaban* 2.5 MG TAB PO SCH (08:04)
[2019-01-13] MEDS: Magnesium Hydroxide LIQ* 30 ML UDC PO SCH (08:05)
[2019-01-13] MEDS: Docusate CAP* 100 MG PO SCH (08:05)
[2019-01-13] MEDS: Piroxicam CAP* 20 MG PO SCH (08:05)
[2019-01-13] MEDS: Lactobacillus Acidophilus* 1 TAB PO SCH (08:05)
[2019-01-13] MEDS: Hydrochlorothiazide TAB* 25 MG PO SCH (08:05)
--- NOTE | 2019-01-13 10:56 | PN ---
Subjective Date of Service: 01/13/19 Interval History: Pt feels well. BM's have normalized. Post op pain is controlled Objective Active Medications: Acetaminophen (Tylenol Tab*) 975 mg PO Q8HR [facility] Last Admin: 01/13/19 06:00 Dose: 975 mg Acyclovir (Zovirax Tab*) 400 mg PO DAILY PRN PRN Reason: cold sores Apixaban (Eliquis*) 2.5 mg PO BID [facility] Last Admin: 01/13/19 08:04 Dose: 2.5 mg Bisacodyl (Dulcolax Supp*) 10 mg [place] DAILY PRN PRN Reason: constipation Cyclobenzaprine HCl (Flexeril Tab*) 10 mg PO TID PRN PRN Reason: SPASMS Last Admin: 01/11/19 01:04 Dose: 10 mg Diphenhydramine HCl (Benadryl Iv*) 25 mg IV Q6H PRN PRN Reason: itching Diphenhydramine HCl (Benadryl Po*) 25 mg PO Q6H PRN PRN Reason: INSOMNIA Docusate Sodium (Colace Cap*) 100 mg PO BID [facility] Last Admin: 01/13/19 08:05 Dose: Not Given Fluoxetine HCl (Prozac Cap*) 20 mg PO BID [facility] Last Admin: 01/13/19 08:04 Dose: 20 mg Gabapentin (Neurontin Cap(*)) 300 mg PO BID [facility] Last Admin: 01/13/19 08:03 Dose: 300 mg Hydrochlorothiazide (Hydrodiuril Tab*) 25 mg PO DAILY [facility] Last Admin: 01/13/19 08:05 Dose: 25 mg Lactated Ringer's (Lactated Ringers 1000 Ml Bag*) 1,000 mls @ 100 mls/hr IV PER RATE [facility] Last Admin: 01/11/19 09:42 Dose: 100 mls/hr Lactobacillus Rhamnosus (Lactobacillus Acidophilus*) 1 tab PO BID [facility] Last Admin: 01/13/19 08:05 Dose: 1 tab Lactulose (Lactulose*) 30 ml PO Q6H PRN PRN Reason: constipation Levothyroxine Sodium (Synthroid Tab*) 150 mcg PO QAM@0600 [facility] Last Admin: 01/13/19 06:00 Dose: 150 mcg Losartan Potassium (Cozaar Tab*) 50 mg PO DAILY [facility] Last Admin: 01/13/19 08:02 Dose: 50 mg Magnesium Hydroxide (Milk Of Magnesia Liq*) 30 ml PO BID [facility] Last Admin: 01/13/19 08:05 Dose: Not Given Magnesium Hydroxide (Milk Of Magnesia Liq*) 30 ml PO Q6H PRN PRN Reason: constipation Morphine Sulfate (Morphine Inj (Syringe))*) 2 mg IV Q2H PRN PRN Reason: PAIN Nystatin (Nystatin Cream*) 1 applic TOPICAL DAILY PRN PRN Reason: yeast infection Ondansetron HCl (Zofran Inj*) 4 mg IV Q6H PRN PRN Reason: nausea Last Admin: 01/12/19 08:31 Dose: 4 mg Oxycodone HCl (Roxycodone Tab*) 10 mg PO Q4H PRN PRN Reason: breakthru pain Last Admin: 01/13/19 08:02 Dose: 10 mg Oxycodone/Acetaminophen (Percocet 5/325 Tab*) 2 tab PO Q3H PRN PRN Reason: PAIN - MODERATE Last Admin: 01/12/19 08:33 Dose: 2 tab Oxycodone/Acetaminophen (Percocet 5/325 Tab*) 1 tab PO Q3H PRN PRN Reason: PAIN - MODERATE Pantoprazole Sodium (Protonix Tab*) 40 mg PO [facility] Last Admin: 01/13/19 08:02 Dose: 40 mg Piroxicam (Feldene Cap*) 20 mg PO QAM [facility] Last Admin: 01/13/19 08:05 Dose: 20 mg Polyethylene Glycol/Electrolytes (Miralax*) 17 gm PO DAILY PRN PRN Reason: Constipation Tramadol HCl (Ultram*) 50 mg PO Q6H PRN PRN Reason: PAIN Triamcinolone Acetonide (Triamcinolone 0.025% Oint *) 1 applic TOPICAL DAILY PRN PRN Reason: RASH Vital Signs - 8 hr 01/13/19 01/13/19 01/13/19 04:03 07:39 08:00 Temperature 98.4 F Pulse Rate 78 73 Respiratory 16 16 18 Rate Blood Pressure 111/46 144/63 (mmHg) O2 Sat by Pulse 92 91 91 Oximetry 01/13/19 01/13/19 08:02 08:03 Temperature Pulse Rate Respiratory 18 18 Rate Blood Pressure (mmHg) O2 Sat by Pulse Oximetry Oxygen Devices in Use Now: None Appearance: 73 yo F in nAD, AAOx3 Eyes: No Scleral Icterus, PERRLA Ears/Nose/Mouth/Throat: NL Teeth, Lips, Gums, Mucous Membranes Moist Neck: NL Appearance and Movements; NL JVP, Trachea Midline Respiratory: Symmetrical Chest Expansion and Respiratory Effort, Clear to Auscultation Cardiovascular: NL Sounds; No Murmurs; No JVD, RRR Abdominal: NL Sounds; No Tenderness; No Distention Lymphatic: No Cervical Adenopathy Extremities: No Clubbing, Cyanosis, - - left ankle edema -trace. Skin: No Nodules or Sclerosis, - - R post op knee in surgical dressings and cryo unit Neurological: Alert and Oriented x 3, NL Muscle Strength and Tone Result Diagrams: 01/13/19 05:37 01/13/19 05:36 Microbiology and Other Data: Microbiology 01/10/19 23:40 Nasal Screen MRSA (PCR) - Final Nasal Mrsa Not Detected Assess/Plan/Problems-Billing Assessment: 73 F with h/o RA, HTN s/p elective left knee arthoplasty - Patient Problems (1) History of total knee arthroplasty Comment: as per ortho team (2) HTN (hypertension) Comment: controlled . Cont HCTZ, Losartan (3) Rheumatoid arthritis Comment: holding Arava and Humira periop (4) Diarrhea Comment: resolved, cont probiotics (5) CKD (chronic kidney disease) stage 3, GFR 30-59 ml/min Comment: creat at baseline (6) DVT prophylaxis Comment: cont Eliquis as per ortho Status and Disposition: Medicine consult, will sign off Thank you for involving us in your patient's care
--- NOTE | 2019-01-13 11:43 | PN ---
Progress Note - Progress Note Date of Service: 01/13/19 SOAP: Subjective: []Patient seen at bedside, she was hoping to go to [facility] but insurance co. denied admission. Awaiting [facility] bed offer. She denies SOB, CP, palpitations. Objective: [] Vital Signs Temp 98.4 F 01/13/19 04:03 Pulse 73 01/13/19 07:39 Resp 18 01/13/19 08:03 BP 144/63 01/13/19 07:39 Pulse Ox 91 01/13/19 08:00 Intake & Output 01/12/19 01/13/19 01/13/19 18:59 06:59 18:59 Intake Total 350 720 Output Total 400 Balance -50 720 Intake: Oral 350 720 Output: Urine 400 Other: Estimated Void Large Large Date of Last Bowel 01/12/19 Movement # Bowel Movements 2 Estimated Stool Amount Medium # Voids 1 1 Laboratory Results - last 24 hr 01/13/19 01/13/19 05:36 05:37 Hgb 8.9 L Hct 27 L Plt Count 182 MPV 8.4 Sodium 134 L Left knee incision benign calf NT and soft + DF left ankle sensation and circulation remain intact Assessment: []s/p LTK POD #3 Plan: []Await bed offer from [facility] for dvt prophylaxis 1 month post op Follow up 10-14 days after discharge with Dr. Sheppard
[2019-01-13 12:04] VITALS: BP 122/55
--- NOTE | 2019-01-13 12:34 | DS ---
Orthopedic Discharge Summary - Discharge Summary Date of Admission:01/10/19 Date of Discharge: 01/13/19 Date of Surgery: 01/10/19 Attending Orthopedic Provider: Dr. Sheppard Pre-operative Diagnosis: DJD left knee Operative Procedure: Left total knee arthroplasty Condition of Patient: stable History: LUCAS MULLER is a 73 year old F with years of increasingly severe left knee pain. Patient has failed conservative management and has elected to undergo a left total knee replacement Hospital Course: LUCAS was admitted to [facility] on 01/10/19. Patient underwent a left total knee without complication followed by a brief recovery in PACU and transfer to the Short Stay Surgical Unit in stable condition. Our hospitalist service, physical therapy and occupational therapy also participated in this patients care. Post-op day 1: patient was alert and in no acute distress. Dressing was clean, dry and intact. Operative extremity dorsiflexion and plantarflexion intact, sensation intact to light touch distally , DP2+. Post-op day two: dressing was changed, incision was clean, dry and intact. Patient was deemed to be medically and orthopedically stable for discharge to short term rehabilitation. Physical therapy goals were met. Home Medications Medication Instructions Recorded Confirmed Type Acyclovir* [Zovirax 400 MG TAB*] 400 mg PO DAILY PRN 02/04/18 12/30/18 History FLUoxetine CAP* [Prozac CAP*] 20 mg PO BID 02/04/18 12/30/18 History Gabapentin CAP(*) [Neurontin 300 300 mg PO BID 02/04/18 12/30/18 History CAP(*)] Hydrochlorothiazide TAB* 25 mg PO QAM 02/04/18 12/30/18 History [Hydrodiuril TAB*] Levothyroxine TAB* [Synthroid TAB*] 150 mcg PO QAM 02/04/18 12/30/18 History Losartan TAB* [Cozaar TAB*] 50 mg PO QPM 02/04/18 12/30/18 History Pantoprazole TAB * [Protonix TAB*] 40 mg PO QAM 02/04/18 12/30/18 History Pravastatin (NF) [Pravachol (NF)] 80 mg PO QPM 02/04/18 12/30/18 History Adalimumab (NF) [Humira Pen (NF)] 20 mg SUBCUT Q14D 03/08/18 12/30/18 History Leflunomide (NF) [Arava (Nf)] 20 mg PO QAM 03/08/18 12/30/18 History Acetaminophen [Tylenol Arthritis] 2 tab PO DAILY PRN 04/29/18 12/30/18 History Cholecalciferol (Vitamin D3) 1 tab PO QAM 04/29/18 12/30/18 History [Vitamin D3] Multivitamin [Multivitamins] 1 cap PO QAM 04/29/18 12/30/18 History Triamcinolone 0.1% CREAM(NF) 1 applic TOPICAL DAILY PRN 05/02/18 12/30/18 History [Kenalog 0.1% Cream (NF)] Nystatin CREAM* [Nystatin Cream*] 1 applic .SEE ORDER DAILY PRN 12/30/18 History Piroxicam 20 mg PO QAM 12/30/18 12/30/18 History Acetaminophen TAB* [Tylenol TAB*] 975 mg PO Q8HR tab 01/13/19 Rx Apixaban* [Eliquis*] 2.5 mg PO BID tab 01/13/19 Rx Bisacodyl SUPP* [Dulcolax Supp*] 10 mg UT DAILY PRN supp 01/13/19 Rx Cyclobenzaprine TAB* [Flexeril 10 10 mg PO TID PRN tab 01/13/19 Rx MG TAB*] Docusate CAP* [Colace Cap*] 100 mg PO BID cap 01/13/19 Rx oxyCODONE TAB* [Roxycodone TAB 5 10 mg PO Q4H PRN #42 tab MDD 6 01/13/19 Rx mg*] oxyCODONE/Acetamin 5/325 MG* 1 tab PO Q3H PRN tab 01/13/19 Rx [Percocet 5/325 TAB*] oxyCODONE/Acetamin 5/325 MG* 2 tab PO Q3H PRN tab 01/13/19 Rx [Percocet 5/325 TAB*] Discharge to [facility] with PT/OT Eliquis 2.5 mg BID for 1 month post op May shower, light dressing as needed Percocet or Oxycodone as needed for pain Follow up in 10-14 days as scheduled with Dr. Sheppard
== END 2019-01-13 13:05 | DRG 470 ==
LOC: AA 01-10 13:03 → SSU 01-10 22:26
PROVIDERS: ADMIT Orthopaedic Surgery Adult Reconstructive Orthopaedic Surgery; ATTEND Orthopaedic Surgery Adult Reconstructive Orthopaedic Surgery
PROC: 0SRD0J9 Replacement of Left Knee Joint with Synthetic Substitute, Cemented, Open Approach (ICD-10-PCS; principal; 2019-01-10 16:00)
DX: M17.12 Unilateral primary osteoarthritis, left knee (principal); E03.9 Hypothyroidism, unspecified; K21.9 Gastro-esophageal reflux disease without esophagitis; E78.00 Pure hypercholesterolemia, unspecified; L40.50 Arthropathic psoriasis, unspecified; F32.9 Major depressive disorder, single episode, unspecified; E66.01 Morbid (severe) obesity due to excess calories; M06.9 Rheumatoid arthritis, unspecified; I12.9 Hypertensive chronic kidney disease with stage 1 through stage 4 chronic kidney disease, or unspecified chronic kidney disease; R42 Dizziness and giddiness; M25.462 Effusion, left knee; E78.5 Hyperlipidemia, unspecified; N18.3 Chronic kidney disease, stage 3 (moderate); M25.762 Osteophyte, left knee; F41.9 Anxiety disorder, unspecified; R19.7 Diarrhea, unspecified; Z98.49 Cataract extraction status, unspecified eye; Z98.51 Tubal ligation status; Z88.1 Allergy status to other antibiotic agents; Z88.8 Allergy status to other drugs, medicaments and biological substances; Z86.14 Personal history of Methicillin resistant Staphylococcus aureus infection; Z79.01 Long term (current) use of anticoagulants; Z82.49 Family history of ischemic heart disease and other diseases of the circulatory system; Z72.89 Other problems related to lifestyle; Z80.3 Family history of malignant neoplasm of breast; Z87.891 Personal history of nicotine dependence
CPT/HCPCS: 36415; 80048; 84300; 85014; 85018; 85049; 87641; A9270-GY; C1776; G8978-GP-CK; G8979-GP-CI; G8987-GO-CJ; G8988-GO-CI; J1100; J2250; J2405; J2704; J2795; J3490